=== PATIENT | female | born 1970 | race Caucasian/White ===

== ENCOUNTER → 2018-04-04 10:11 | Outpatient (CLI) | payer SELFPAY | DX: Z23 Encounter for immunization (principal) | CPT/HCPCS: 90471; 90686 ==

== ENCOUNTER → 2018-07-11 11:29 | Outpatient (CLI) | payer OTHER, SELFPAY ==
--- NOTE | 2018-07-11 11:33 | DI.RAD.S_ITS ---
PROCEDURE: XR FOOT LT 2V INDICATIONS: nail puncture wound to midfoot. TECHNIQUE: 3 views of the foot were acquired. COMPARISON: None. FINDINGS: Bones: No fractures or dislocations. No suspicious bony lesions. Soft tissues: No tibiotalar joint effusion. Achilles tendon appears normal. IMPRESSION: Normal, without fracture or foreign body. Dictated by: Benito Pittman M.D. on 07/11/2018 at 12:18 Approved by: Benito Pittman M.D. on 07/11/2018 at 12:19
== END ==
PROVIDERS: Visit Provider Physician Assistant
DX: S91.332A Puncture wound without foreign body, left foot, initial encounter (principal); W45.0XXA Nail entering through skin, initial encounter
CPT/HCPCS: 73630

== ENCOUNTER → 2018-08-28 12:43 | Outpatient (CLI) | payer OTHER, SELFPAY ==
[2018-08-28 13:39] LABS: Add Manual Diff / Slide Review NO; Basophils Absolute Auto 0 /uL (0-100); Basophils Percent Auto 0.4 % (0-2); Eosinophils Absolute Auto 200 /uL (0-450); Eosinophils Percent Auto 1.7 % (2-4); Hemoglobin 12.9 g/dL (12.0-16.0); Lymphocytes Absolute Auto 4200 /uL (1100-4500); Lymphocytes Percent Auto 45.8 % (25-40); Monocytes Absolute Auto 500 /uL (0-900); Monocytes Percent Auto 5.3 % (3-14); Neutrophils Absolute Auto 4300 /uL (1500-7000); Neutrophils Percent Auto 46.8 % (50-75); Platelet Count 269 X10^3/uL (150-400); Red Blood Cell Count 4.44 X10^6/uL (4.0-5.2); Red Cell Distribution Width 14.3 % (11.6-14.8); White Blood Cell Count 9.1 X10^3/uL (4.5-11.0)
[2018-08-28 15:01] LABS: Alanine Aminotransferase 34 IU/L (9-52); Albumin 4.4 g/dL (3.5-5.0); Albumin Globulin Ratio 1.7 (1.0-2.8); Alkaline Phosphatase 122 U/L (38-126); Aspartate Aminotransferase 25 IU/L (14-36); BUN Creatinine Ratio 27.1 (6-22); Bilirubin Total 0.1 mg/dL (0.2-1.3); Blood Urea Nitrogen 19 mg/dL (7-17); Calcium 9.7 mg/dL (8.4-10.2); Carbon Dioxide 27 mmol/L (22-32); Chloride 103 mmol/L (98-107); Estimated Glomerular Filt Rate > 60.0 mL/min (>60); Globulin 2.6 g/dL (1.7-4.1); Glucose 96 mg/dL (70-100); HEMOLYSIS < 15 (0-50); Sodium 140 mmol/L (137-145)
[2018-08-28 15:30] LABS: TSH w/ Reflex to FT4 1.35 uIU/mL (0.47-4.68)
== END ==
PROVIDERS: Visit Provider Registered Nurse
DX: N95.1 Menopausal and female climacteric states (principal); Z79.899 Other long term (current) drug therapy
CPT/HCPCS: 36415; 80053; 84443; 85025

== ENCOUNTER → 2018-10-31 08:22 | Outpatient (CLI) | payer OTHER, SELFPAY ==
--- NOTE | 2018-10-31 | DI.MG.S_ITS ---
BILATERAL DIGITAL SCREENING MAMMOGRAM 3D/2D WITH CAD: 10/31/2018 CLINICAL: Routine screening. Family history of breast cancer. Comparison is made to exam dated: 11/16/2015 mammogram - [facility]. There are scattered fibroglandular elements in both breasts. Current study was also evaluated with a Computer Aided Detection (CAD) system. No significant masses, calcifications, or other findings are seen in either breast. There has been no significant interval change. IMPRESSION: NEGATIVE There is no mammographic evidence of malignancy. A 1 year screening mammogram is recommended. This exam was interpreted at Station ID: [id number]. NOTE: For mammograms, a report in lay terms will be sent to the patient. Approximately 15% of breast malignancies will not be visualized mammographically. In the management of a palpable breast mass, a negative mammogram must not discourage biopsy of a clinically suspicious lesion. Electronically Signed By: Francisco britt/mireya:10/31/2018 09:38:27 letter sent: Normal Exam ACR BI-RADS Category 1: Negative [id number]
== END ==
PROVIDERS: Visit Provider Registered Nurse
DX: Z12.31 Encounter for screening mammogram for malignant neoplasm of breast (principal); Z80.3 Family history of malignant neoplasm of breast
CPT/HCPCS: 77063; 77067

== ENCOUNTER → 2018-12-30 09:48 | Outpatient (CLI) | payer OTHER, SELFPAY ==
[2018-12-30 11:35] LABS: Cortisol AM (Before 10AM) 4.58 ug/dL (4.46-22.7)
[2019-01-01 15:51] LABS: Adrenocorticotropic Hormone 30 pg/mL (6-50)
== END ==
PROVIDERS: PCP Student in an Organized Health Care Education/Training Program; Visit Provider Student in an Organized Health Care Education/Training Program
DX: R23.2 Flushing (principal); R55 Syncope and collapse
CPT/HCPCS: 36415; 82024; 82088; 82533; 84244

== ENCOUNTER 2019-01-07 12:17 | Emergency (ER) | payer OTHER, SELFPAY ==
[2019-01-07 12:26] VITALS: BP 112/76; PULSE 62; RESP 12; TEMP 36.9; O2SAT 100
--- NOTE | 2019-01-07 12:43 | DI.RAD.S_ITS ---
PROCEDURE: XR CHEST 2V INDICATIONS: shortness of breath TECHNIQUE: 2 views of the chest were acquired. COMPARISON: None. FINDINGS: Surgical changes and devices: None. Lungs and pleura: Lungs are clear. No pleural effusions or pneumothorax. Mediastinum: Mediastinal contours are normal. Heart size is normal. Bones and chest wall: No suspicious bony abnormalities. Soft tissues appear unremarkable. IMPRESSION: Negative chest. No acute cardiopulmonary process is evident. Dictated by: Brijesh Andino M.D. on 01/07/2019 at 13:03 Approved by: Brijesh Andino M.D. on 01/07/2019 at 13:03
[2019-01-07 13:04] VITALS: RESP 15; O2SAT 100
[2019-01-07 13:33] LABS: Add Manual Diff / Slide Review NO; Basophils Absolute Auto 100 /uL (0-100); Basophils Percent Auto 0.6 % (0-2); Eosinophils Absolute Auto 400 /uL (0-450); Eosinophils Percent Auto 4.2 % (2-4); Hematocrit 37.6 % (36-46); Hemoglobin 12.7 g/dL (12.0-16.0); Lymphocytes Absolute Auto 3400 /uL (1100-4500); Lymphocytes Percent Auto 39.3 % (25-40); Mean Corpuscular HGB Conc 33.9 % (30-36); Mean Corpuscular Hemoglobin 29.7 PG (26-34); Mean Corpuscular Volume 87.6 fL (80-100); Monocytes Absolute Auto 400 /uL (0-900); Neutrophils Absolute Auto 4400 /uL (1500-7000); Neutrophils Percent Auto 50.9 % (50-75); Platelet Count 255 X10^3/uL (150-400); Red Blood Cell Count 4.29 X10^6/uL (4.0-5.2); Red Cell Distribution Width 12.8 % (11.6-14.8); White Blood Cell Count 8.6 X10^3/uL (4.5-11.0)
[2019-01-07 13:41] LABS: INR 0.9 (0.9-1.3); Prothrombin Time 10.2 SECONDS (10.1-12.7)
[2019-01-07 13:43] LABS: PTT Partial Thromboplastin Tim 34 SECONDS (26.4-36.2)
[2019-01-07 13:45] LABS: Alanine Aminotransferase 17 IU/L (9-52); Albumin 4.3 g/dL (3.5-5.0); Albumin Globulin Ratio 1.6 (1.0-2.8); Alkaline Phosphatase 101 U/L (38-126); Aspartate Aminotransferase 22 IU/L (14-36); BUN Creatinine Ratio 18.3 (6-22); Bilirubin Total 0.3 mg/dL (0.2-1.3); Blood Urea Nitrogen 11 mg/dL (7-17); Calcium 9.6 mg/dL (8.4-10.2); Carbon Dioxide 26 mmol/L (22-32); Chloride 104 mmol/L (98-107); Creatine Kinase 51 U/L (30-135); Estimated Glomerular Filt Rate > 60.0 mL/min (>60); Globulin 2.7 g/dL (1.7-4.1); Glucose 90 mg/dL (70-100); HEMOLYSIS < 15 (0-50); Potassium 3.9 mmol/L (3.4-5.1); Sodium 140 mmol/L (137-145)
[2019-01-07 13:47] LABS: B Type Natriuretic Peptide < 100 (<100)
[2019-01-07 13:57] LABS: Troponin I < 0.012 ng/mL (0.01-0.034)
[2019-01-07 15:05] LABS: Thyroid Stimulating Hormone 0.84 uIU/mL (0.47-4.68)
[2019-01-07 15:43] VITALS: BP 116/72; PULSE 70; RESP 18; O2SAT 98
--- NOTE | 2019-01-07 17:21 | ED.SOB ---
HPI - SOB/Dyspnea <MARIA LUZ Sanford - Last Filed: 01/07/19 19:33> General Chief Complaint: Shortness of Breath/Dyspnea Stated Complaint: nausea hot flashes and chills shortness of breath Time Seen by Provider: 01/07/19 13:12 Source: patient Mode of arrival: ambulatory Limitations: no limitations History of Present Illness The patient is a 48-year-old female former smoker who presents with various complaints including hot flashes, nausea, decreased appetite, calf pain for years, and shortness of breath. She states the shortness of breath occurs when she is feeling hot flashes. She states she was nauseous last night, but is no longer. She states that the lower leg pain began several years ago in 2014 and has since had PT and ultrasounds done. She states with the episodic flushing, she experiences shortness of breath and then severe fatigue. She states she feels cold after her episodes of hot flashes. She states that she was at a campfire the other day and had difficulty regulating her temperature. She understands that these episodes of hot flashes were and shortness of breath, after stressful periods in her life such as her boyfriend's relapse. She states that this time there is no stressful.. She denies any chest pain. She denies any fever. She denies any abdominal pain. She states that she has seen Dr. 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 Chart review illustrate that the patient has a history of bipolar and is currently unmedicated. Related Data Previous Rx's Medication Instructions Recorded promethazine 25 mg tablet 25 mg PO QID PRN #30 tab 12/26/18 gabapentin 100 mg capsule 100 mg PO TID #90 cap 12/29/18 Allergies Allergy/AdvReac Type Severity Reaction Status Date / Time clindamycin Allergy Severe fever Verified 01/07/19 12:30 amoxicillin Allergy Verified 01/07/19 12:30 Review of Systems <MARIA LUZ Sanford - Last Filed: 01/07/19 19:33> Review of Systems GENERAL: Denies chills, fatigue, malaise, fever, sweats. HEENT: Denies sinus pain, ear pain, sore throat, difficulty swallowing, dizziness. RESPIRATORY: See HPI CARDIOVASCULAR: Denies chest pain, palpitations, orthopnea, edema, GASTROINTESTINAL: see HPI : Denies dysuria, frequency, incontinence, hematuria, urinary retention. MUSCULOSKELETAL: denies weakness, joint pain, or bony pain SKIN: Denies rash, skin lesions, or other NEUROLOGIC: Denies weakness, headache, numbness, change in speech, confusion, seizures, incoordination. PSYCHIATRIC see HPI 12 point review of systems is negative except for those stated above PFSH <MARIA LUZ Sanford - Last Filed: 01/07/19 19:33> Medical History (Updated 01/07/19 @ 19:30 by MARIA LUZ Sanford) History of bipolar disorder (Acute) Social History Smoking Status: Former smoker Social History Smoking Status: Former smoker Exam <MARIA LUZ Sanford - Last Filed: 01/07/19 19:33> Narrative Exam Narrative: GENERAL: Please female no acute distress HEAD: Atraumatic. Normocephalic. No temporal or scalp tenderness. EYES: Pupils equal round and reactive. Extraocular motions intact. No scleral icterus. No injection or drainage. ENT: Nose without bleeding, purulent drainage or septal hematoma. Throat without erythema, tonsillar hypertrophy or exudate. Uvula midline. Airway patent. NECK: Trachea midline. No JVD or lymphadenopathy. Supple, nontender, no meningeal signs. CARDIOVASCULAR: Regular rate and rhythm RESPIRATORY: Clear to auscultation. Breath sounds equal bilaterally. No wheezes, rales, or rhonchi. No cough. No increased respiratory effort. No accessory muscle use. No stridor. GASTROINTESTINAL: Abdomen soft, non-tender, nondistended. No hepato-splenomegaly, or palpable masses. No guarding. Active bowel sounds all 4 quadrants. EXTREMITIES: No clubbing, cyanosis, or edema. No joint tenderness, effusion, or edema noted. BACK: Nontender without deformity or crepitance. No flank tenderness. NEURO: AOx3. SKIN: No rash or erythema. Initial Vital Signs Initial Vital Signs: Vital Signs Temperature 98.4 F 01/07/19 12:26 Pulse Rate 62 01/07/19 12:26 Respiratory Rate 12 01/07/19 12:26 Blood Pressure 112/76 01/07/19 12:26 Pulse Oximetry 100 01/07/19 12:26 <Allison Olguin DO - Last Filed: 01/08/19 19:48> Initial Vital Signs Initial Vital Signs: Vital Signs Temperature 98.4 F 01/07/19 12:26 Pulse Rate 62 01/07/19 12:26 Respiratory Rate 12 01/07/19 12:26 Blood Pressure 112/76 01/07/19 12:26 Pulse Oximetry 100 01/07/19 12:26 Course <MARIA LUZ Sanford - Last Filed: 01/07/19 19:33> Orders Ordered: ED Orders 01/07/19 12:43 XR chest 2V Stat 01/07/19 13:00 EKG-12 Lead Stat 01/07/19 13:23 B Type Natriuretic Peptide Stat Complete Blood Count AUTO DIFF Stat Comprehensive Metabolic Panel Stat Partial Thromboplastin Time Stat Prothrombin Time INR Stat Thyroid Stimulating Hormone Stat Troponin & CK Cardiac Panel Stat Vital Signs - 8 hr 01/07/19 12:26 01/07/19 13:04 01/07/19 15:43 Temperature 98.4 F Pulse Rate 62 70 Respiratory Rate 12 15 18 Blood Pressure 112/76 Blood Pressure [Left Arm] 116/72 Pulse Oximetry 100 100 98 <Allison Olguin DO - Last Filed: 01/08/19 19:48> Orders Ordered: ED Orders 01/07/19 12:43 XR chest 2V Stat 01/07/19 13:00 EKG-12 Lead Stat 01/07/19 13:23 B Type Natriuretic Peptide Stat Complete Blood Count AUTO DIFF Stat Comprehensive Metabolic Panel Stat Partial Thromboplastin Time Stat Prothrombin Time INR Stat Thyroid Stimulating Hormone Stat Troponin & CK Cardiac Panel Stat Vital Signs - 8 hr 01/07/19 12:26 01/07/19 13:04 01/07/19 15:43 Temperature 98.4 F Pulse Rate 62 70 Respiratory Rate 12 15 18 Blood Pressure 112/76 Blood Pressure [Left Arm] 116/72 Pulse Oximetry 100 100 98 MDM - SOB/Dyspnea <MARIA LUZ Sanford - Last Filed: 01/07/19 19:33> Lab Data Result diagrams: 01/07/19 13:23 07/23/19 13:23 Lab Results 01/07/19 01/07/19 01/07/19 Range/Units 13:23 13:23 13:23 WBC 8.6 (4.5-11.0) X10^3/uL RBC 4.29 (4.0-5.2) X10^6/uL Hgb 12.7 (12.0-16.0) g/dL Hct 37.6 (36-46) % MCV 87.6 (80-100) fL MCH 29.7 (26-34) PG MCHC 33.9 (30-36) % RDW 12.8 (11.6-14.8) % Plt Count 255 (150-400) X10^3/uL Neut % (Auto) 50.9 (50-75) % Lymph % (Auto) 39.3 (25-40) % Henry % (Auto) 5.0 (3-14) % Eos % (Auto) 4.2 H (2-4) % Baso % (Auto) 0.6 (0-2) % Neut # (Auto) 4400 (0680-5552) /uL Lymph # (Auto) 3400 (4526-8657) /uL Henry # (Auto) 400 (0-900) /uL Eos # (Auto) 400 (0-450) /uL Baso # (Auto) 100 (0-100) /uL PT 10.2 (10.1-12.7) SECONDS INR 0.9 (0.9-1.3) APTT 34 (26.4-36.2) SECONDS Sodium 140 (137-145) mmol/L Potassium 3.9 (3.4-5.1) mmol/L Chloride 104 (98-107) mmol/L Carbon Dioxide 26 (22-32) mmol/L BUN 11 (7-17) mg/dL Creatinine 0.60 (0.52-1.04) mg/dL Estimated GFR > 60.0 (>60) mL/min BUN/Creatinine Ratio 18.3 (6-22) Glucose 90 (70-100) mg/dL Calcium 9.6 (8.4-10.2) mg/dL Total Bilirubin 0.3 (0.2-1.3) mg/dL AST 22 (14-36) IU/L ALT 17 (9-52) IU/L Alkaline Phosphatase 101 (38-126) U/L Total Creatine Kinase 51 (30-135) U/L CK-MB (CK-2) TNP CK-MB (CK-2) Rel Index TNP Troponin I < 0.012 (0.01-0.034) ng/mL B-Natriuretic Peptide (<100) Total Protein 7.0 (6.3-8.2) g/dL Albumin 4.3 (3.5-5.0) g/dL Globulin 2.7 (1.7-4.1) g/dL Albumin/Globulin Ratio 1.6 (1.0-2.8) TSH (0.47-4.68) uIU/mL 01/07/19 01/07/19 Range/Units 13:23 13:23 WBC (4.5-11.0) X10^3/uL RBC (4.0-5.2) X10^6/uL Hgb (12.0-16.0) g/dL Hct (36-46) % MCV (80-100) fL MCH (26-34) PG MCHC (30-36) % RDW (11.6-14.8) % Plt Count (150-400) X10^3/uL Neut % (Auto) (50-75) % Lymph % (Auto) (25-40) % Henry % (Auto) (3-14) % Eos % (Auto) (2-4) % Baso % (Auto) (0-2) % Neut # (Auto) (2522-2921) /uL Lymph # (Auto) (4563-2415) /uL Henry # (Auto) (0-900) /uL Eos # (Auto) (0-450) /uL Baso # (Auto) (0-100) /uL PT (10.1-12.7) SECONDS INR (0.9-1.3) APTT (26.4-36.2) SECONDS Sodium (137-145) mmol/L Potassium (3.4-5.1) mmol/L Chloride (98-107) mmol/L Carbon Dioxide (22-32) mmol/L BUN (7-17) mg/dL Creatinine (0.52-1.04) mg/dL Estimated GFR (>60) mL/min BUN/Creatinine Ratio (6-22) Glucose (70-100) mg/dL Calcium (8.4-10.2) mg/dL Total Bilirubin (0.2-1.3) mg/dL AST (14-36) IU/L ALT (9-52) IU/L Alkaline Phosphatase (38-126) U/L Total Creatine Kinase (30-135) U/L CK-MB (CK-2) CK-MB (CK-2) Rel Index Troponin I (0.01-0.034) ng/mL B-Natriuretic Peptide < 100 (<100) Total Protein (6.3-8.2) g/dL Albumin (3.5-5.0) g/dL Globulin (1.7-4.1) g/dL Albumin/Globulin Ratio (1.0-2.8) TSH 0.84 (0.47-4.68) uIU/mL Imaging Data Chest x-ray: Radiologist's impression: [address] [address] XRay Report Signed Patient: Sandra Maurer R#: [id number] : 1970Acct:[id number] Age/Sex: 48 / FDate of Service: 01/07/19 Loc: ED Accession Number: [id number] Procedure: XR chest 2V Ordering Provider: Allison Olguin D.O. PROCEDURE: XR CHEST 2V INDICATIONS: shortness of breath TECHNIQUE: 2 views of the chest were acquired. COMPARISON: None. FINDINGS: Surgical changes and devices: None. Lungs and pleura: Lungs are clear. No pleural effusions or pneumothorax. Mediastinum: Mediastinal contours are normal. Heart size is normal. Bones and chest wall: No suspicious bony abnormalities. Soft tissues appear unremarkable. IMPRESSION: Negative chest. No acute cardiopulmonary process is evident. Dictated by: Brijesh Andino M.D. on 01/07/2019 at 13:03 Approved by: Brijesh Andino M.D. on 01/07/2019 at 13:03 ECG Data Attestation: I personally reviewed and interpreted this ECG as follows: Interpretation: Sinus bradycardia Ventricular rate 57. No ST elevation or depression. No ectopy noted. Viewed by Dr. Olguin at 13:12 [facility] Narrative Medical decision making narrative: The patient is a 48-year-old female with complicated medical history who presents for chief complaint of various symptoms including hot flashes, shortness of breath etc. She has seen her primary care provider for this fairly recently. She received a EKG, chest x-ray and cardiac labs, which all came back normal. I did check her TSH, which was in the normal range. She was comfortable throughout her stay in the ER, even falling asleep in a results launch. I discussed at length that she is to follow up with primary care provider. Discussed coming back to the ER for any acute concerns such as chest pain or shortness of breath. Patient was hemodynamically stable throughout her stay in the ER. I offered her pain and nausea medication, which she declined. I feel as though she needs further workup, especially given her weight loss, however I feel as though the previous discussions with her PCP regarding an MRI and referrals are a good start. Patient states understanding of follow-up and return precautions. <Allison Olguin, DO - Last Filed: 01/08/19 19:48> Lab Data Lab Results 01/07/19 01/07/19 01/07/19 Range/Units 13:23 13:23 13:23 WBC 8.6 (4.5-11.0) X10^3/uL RBC 4.29 (4.0-5.2) X10^6/uL Hgb 12.7 (12.0-16.0) g/dL Hct 37.6 (36-46) % MCV 87.6 (80-100) fL MCH 29.7 (26-34) PG MCHC 33.9 (30-36) % RDW 12.8 (11.6-14.8) % Plt Count 255 (150-400) X10^3/uL Neut % (Auto) 50.9 (50-75) % Lymph % (Auto) 39.3 (25-40) % Henry % (Auto) 5.0 (3-14) % Eos % (Auto) 4.2 H (2-4) % Baso % (Auto) 0.6 (0-2) % Neut # (Auto) 4400 (4169-3720) /uL Lymph # (Auto) 3400 (6081-8759) /uL Henry # (Auto) 400 (0-900) /uL Eos # (Auto) 400 (0-450) /uL Baso # (Auto) 100 (0-100) /uL PT 10.2 (10.1-12.7) SECONDS INR 0.9 (0.9-1.3) APTT 34 (26.4-36.2) SECONDS Sodium 140 (137-145) mmol/L Potassium 3.9 (3.4-5.1) mmol/L Chloride 104 (98-107) mmol/L Carbon Dioxide 26 (22-32) mmol/L BUN 11 (7-17) mg/dL Creatinine 0.60 (0.52-1.04) mg/dL Estimated GFR > 60.0 (>60) mL/min BUN/Creatinine Ratio 18.3 (6-22) Glucose 90 (70-100) mg/dL Calcium 9.6 (8.4-10.2) mg/dL Total Bilirubin 0.3 (0.2-1.3) mg/dL AST 22 (14-36) IU/L ALT 17 (9-52) IU/L Alkaline Phosphatase 101 (38-126) U/L Total Creatine Kinase 51 (30-135) U/L CK-MB (CK-2) TNP CK-MB (CK-2) Rel Index TNP Troponin I < 0.012 (0.01-0.034) ng/mL B-Natriuretic Peptide (<100) Total Protein 7.0 (6.3-8.2) g/dL Albumin 4.3 (3.5-5.0) g/dL Globulin 2.7 (1.7-4.1) g/dL Albumin/Globulin Ratio 1.6 (1.0-2.8) TSH (0.47-4.68) uIU/mL 01/07/19 01/07/19 Range/Units 13:23 13:23 WBC (4.5-11.0) X10^3/uL RBC (4.0-5.2) X10^6/uL Hgb (12.0-16.0) g/dL Hct (36-46) % MCV (80-100) fL MCH (26-34) PG MCHC (30-36) % RDW (11.6-14.8) % Plt Count (150-400) X10^3/uL Neut % (Auto) (50-75) % Lymph % (Auto) (25-40) % Henry % (Auto) (3-14) % Eos % (Auto) (2-4) % Baso % (Auto) (0-2) % Neut # (Auto) (2166-6826) /uL Lymph # (Auto) (5695-5311) /uL Henry # (Auto) (0-900) /uL Eos # (Auto) (0-450) /uL Baso # (Auto) (0-100) /uL PT (10.1-12.7) SECONDS INR (0.9-1.3) APTT (26.4-36.2) SECONDS Sodium (137-145) mmol/L Potassium (3.4-5.1) mmol/L Chloride (98-107) mmol/L Carbon Dioxide (22-32) mmol/L BUN (7-17) mg/dL Creatinine (0.52-1.04) mg/dL Estimated GFR (>60) mL/min BUN/Creatinine Ratio (6-22) Glucose (70-100) mg/dL Calcium (8.4-10.2) mg/dL Total Bilirubin (0.2-1.3) mg/dL AST (14-36) IU/L ALT (9-52) IU/L Alkaline Phosphatase (38-126) U/L Total Creatine Kinase (30-135) U/L CK-MB (CK-2) CK-MB (CK-2) Rel Index Troponin I (0.01-0.034) ng/mL B-Natriuretic Peptide < 100 (<100) Total Protein (6.3-8.2) g/dL Albumin (3.5-5.0) g/dL Globulin (1.7-4.1) g/dL Albumin/Globulin Ratio (1.0-2.8) TSH 0.84 (0.47-4.68) uIU/mL Discharge Plan Departure Patient Disposition: Home Clinical Impression: Vasomotor flushing, Nausea Discharge Date/Time: 01/07/19 15:45 Interventions: ED Discharge Assessment Last Done: 01/07/19 15:44 Instructions: Nausea (Alternative Therapy), DI for Nausea -- Adult Activity Restrictions/Additional Instructions: Please follow up with primary care provider. Please come back to the emergency department for any acute concerns such as chest pain shortness of breath. Today we checked her lungs, and you had no pneumonia. We checked cardiac levels, electrolytes, your thyroid, as well as your kidney and liver function. Overall your lab work came back normal. Please follow up with her primary care provider, especially given his suggestions of OBGYN and/or further imaging Prescriptions: No Action promethazine 25 mg tablet 25 mg PO QID PRN (Reason: nausea and vomiting) Qty: 30 RF: 0 gabapentin 100 mg capsule 100 mg PO TID Qty: 90 RF: 0 Referrals: Augie Geronimo MD [Primary Care Provider] - <Allison Olguin DO - Last Filed: 01/08/19 19:48> Cosign ED Attending Cosignature Attestation: I was immediately available in the department for consultation. This documentation has been reviewed and I agree with assessment and plan. Supervised by Allison Olguin DO
--- NOTE | 2019-01-07 17:26 | ED_ITS ---
HPI - SOB/Dyspnea <MARIA LUZ Sanford - Last Filed: 01/07/19 19:33> General Chief Complaint: Shortness of Breath/Dyspnea Stated Complaint: nausea hot flashes and chills shortness of breath Time Seen by Provider: 01/07/19 13:12 Source: patient Mode of arrival: ambulatory Limitations: no limitations History of Present Illness The patient is a 48-year-old female former smoker who presents with various complaints including hot flashes, nausea, decreased appetite, calf pain for years, and shortness of breath. She states the shortness of breath occurs when she is feeling hot flashes. She states she was nauseous last night, but is no longer. She states that the lower leg pain began several years ago in 2014 and has since had PT and ultrasounds done. She states with the episodic flushing, she experiences shortness of breath and then severe fatigue. She states she feels cold after her episodes of hot flashes. She states that she was at a campfire the other day and had difficulty regulating her temperature. She understands that these episodes of hot flashes were and shortness of breath, after stressful periods in her life such as her boyfriend's relapse. She states that this time there is no stressful.. She denies any chest pain. She denies any fever. She denies any abdominal pain. She states that she has seen Dr. 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 Chart review illustrate that the patient has a history of bipolar and is currently unmedicated. Related Data Previous Rx's Medication Instructions Recorded promethazine 25 mg tablet 25 mg PO QID PRN #30 tab 12/26/18 gabapentin 100 mg capsule 100 mg PO TID #90 cap 12/29/18 Allergies Allergy/AdvReac Type Severity Reaction Status Date / Time clindamycin Allergy Severe fever Verified 01/07/19 12:30 amoxicillin Allergy Verified 01/07/19 12:30 Review of Systems <MARIA LUZ Sanford - Last Filed: 01/07/19 19:33> Review of Systems GENERAL: Denies chills, fatigue, malaise, fever, sweats. HEENT: Denies sinus pain, ear pain, sore throat, difficulty swallowing, dizziness. RESPIRATORY: See HPI CARDIOVASCULAR: Denies chest pain, palpitations, orthopnea, edema, GASTROINTESTINAL: see HPI : Denies dysuria, frequency, incontinence, hematuria, urinary retention. MUSCULOSKELETAL: denies weakness, joint pain, or bony pain SKIN: Denies rash, skin lesions, or other NEUROLOGIC: Denies weakness, headache, numbness, change in speech, confusion, seizures, incoordination. PSYCHIATRIC see HPI 12 point review of systems is negative except for those stated above PFSH <MARIA LUZ Sanford - Last Filed: 01/07/19 19:33> Medical History (Updated 01/07/19 @ 19:30 by MARIA LUZ Sanford) History of bipolar disorder (Acute) Social History Smoking Status: Former smoker Social History Smoking Status: Former smoker Exam <MARIA LUZ Sanford - Last Filed: 01/07/19 19:33> Narrative Exam Narrative: GENERAL: Please female no acute distress HEAD: Atraumatic. Normocephalic. No temporal or scalp tenderness. EYES: Pupils equal round and reactive. Extraocular motions intact. No scleral icterus. No injection or drainage. ENT: Nose without bleeding, purulent drainage or septal hematoma. Throat without erythema, tonsillar hypertrophy or exudate. Uvula midline. Airway patent. NECK: Trachea midline. No JVD or lymphadenopathy. Supple, nontender, no meningeal signs. CARDIOVASCULAR: Regular rate and rhythm RESPIRATORY: Clear to auscultation. Breath sounds equal bilaterally. No wheezes, rales, or rhonchi. No cough. No increased respiratory effort. No accessory muscle use. No stridor. GASTROINTESTINAL: Abdomen soft, non-tender, nondistended. No hepato- splenomegaly, or palpable masses. No guarding. Active bowel sounds all 4 quadra nts. EXTREMITIES: No clubbing, cyanosis, or edema. No joint tenderness, effusion, or edema noted. BACK: Nontender without deformity or crepitance. No flank tenderness. NEURO: AOx3. SKIN: No rash or erythema. Initial Vital Signs Initial Vital Signs: Vital Signs Temperature 98.4 F 01/07/19 12:26 Pulse Rate 62 01/07/19 12:26 Respiratory Rate 12 07/23/19 12:26 Blood Pressure 112/76 01/07/19 12:26 Pulse Oximetry 100 01/07/19 12:26 <Allison Olguin DO - Last Filed: 01/08/19 19:48> Initial Vital Signs Initial Vital Signs: Vital Signs Temperature 98.4 F 01/07/19 12:26 Pulse Rate 62 01/07/19 12:26 Respiratory Rate 12 01/07/19 12:26 Blood Pressure 112/76 01/07/19 12:26 Pulse Oximetry 100 01/07/19 12:26 Course <MARIA LUZ Sanford - Last Filed: 01/07/19 19:33> Orders Ordered: ED Orders 01/07/19 12:43 XR chest 2V Stat 01/07/19 13:00 EKG-12 Lead Stat 01/07/19 13:23 B Type Natriuretic Peptide Stat Complete Blood Count AUTO DIFF Stat Comprehensive Metabolic Panel Stat Partial Thromboplastin Time Stat Prothrombin Time INR Stat Thyroid Stimulating Hormone Stat Troponin & CK Cardiac Panel Stat Vital Signs - 8 hr 01/07/19 12:26 01/07/19 13:04 01/07/19 15:43 Temperature 98.4 F Pulse Rate 62 70 Respiratory Rate 12 15 18 Blood Pressure 112/76 Blood Pressure [Left Arm] 116/72 Pulse Oximetry 100 100 98 <Allison Olguin DO - Last Filed: 01/08/19 19:48> Orders Ordered: ED Orders 01/07/19 12:43 XR chest 2V Stat 01/07/19 13:00 EKG-12 Lead Stat 01/07/19 13:23 B Type Natriuretic Peptide Stat Complete Blood Count AUTO DIFF Stat Comprehensive Metabolic Panel Stat Partial Thromboplastin Time Stat Prothrombin Time INR Stat Thyroid Stimulating Hormone Stat Troponin & CK Cardiac Panel Stat Vital Signs - 8 hr 01/07/19 12:26 01/07/19 13:04 01/07/19 15:43 Temperature 98.4 F Pulse Rate 62 70 Respiratory Rate 12 15 18 Blood Pressure 112/76 Blood Pressure [Left Arm] 116/72 Pulse Oximetry 100 100 98 MDM - SOB/Dyspnea <MARIA LUZ Sanford - Last Filed: 01/07/19 19:33> Lab Data Result diagrams: 01/07/19 13:23 01/07/19 13:23 Lab Results 01/07/19 01/07/19 01/07/19 Range/Units 13:23 13:23 13:23 WBC 8.6 (4.5-11.0) X10^3/uL RBC 4.29 (4.0-5.2) X10^6/uL Hgb 12.7 (12.0-16.0) g/dL Hct 37.6 (36-46) % MCV 87.6 (80-100) fL MCH 29.7 (26-34) PG MCHC 33.9 (30-36) % RDW 12.8 (11.6-14.8) % Plt Count 255 (150-400) X10^3/uL Neut % (Auto) 50.9 (50-75) % Lymph % (Auto) 39.3 (25-40) % [place] % (Auto) 5.0 (3-14) % Eos % (Auto) 4.2 H (2-4) % Baso % (Auto) 0.6 (0-2) % Neut # (Auto) 4400 (0728-6979) /uL Lymph # (Auto) 3400 (3332-2595) /uL [place] # (Auto) 400 (0-900) /uL Eos # (Auto) 400 (0-450) /uL Baso # (Auto) 100 (0-100) /uL PT 10.2 (10.1-12.7) SECONDS INR 0.9 (0.9-1.3) APTT 34 (26.4-36.2) SECONDS Sodium 140 (137-145) mmol/L Potassium 3.9 (3.4-5.1) mmol/L Chloride 104 (98-107) mmol/L Carbon Dioxide 26 (22-32) mmol/L BUN 11 (7-17) mg/dL Creatinine 0.60 (0.52-1.04) mg/dL Estimated GFR > 60.0 (>60) mL/min BUN/Creatinine Ratio 18.3 (6-22) Glucose 90 (70-100) mg/dL Calcium 9.6 (8.4-10.2) mg/dL Total Bilirubin 0.3 (0.2-1.3) mg/dL AST 22 (14-36) IU/L ALT 17 (9-52) IU/L Alkaline Phosphatase 101 (38-126) U/L Total Creatine Kinase 51 (30-135) U/L CK-MB (CK-2) TNP CK-MB (CK-2) Rel Index TNP Troponin I < 0.012 (0.01-0.034) ng/mL B-Natriuretic Peptide (<100) Total Protein 7.0 (6.3-8.2) g/dL Albumin 4.3 (3.5-5.0) g/dL Globulin 2.7 (1.7-4.1) g/dL Albumin/Globulin Ratio 1.6 (1.0-2.8) TSH (0.47-4.68) uIU/mL 01/07/19 01/07/19 Range/Units 13:23 13:23 WBC (4.5-11.0) X10^3/uL RBC (4.0-5.2) X10^6/uL Hgb (12.0-16.0) g/dL Hct (36-46) % MCV (80-100) fL MCH (26-34) PG MCHC (30-36) % RDW (11.6-14.8) % Plt Count (150-400) X10^3/uL Neut % (Auto) (50-75) % Lymph % (Auto) (25-40) % [place] % (Auto) (3-14) % Eos % (Auto) (2-4) % Baso % (Auto) (0-2) % Neut # (Auto) (9918-2557) /uL Lymph # (Auto) (4829-5972) /uL [place] # (Auto) (0-900) /uL Eos # (Auto) (0-450) /uL Baso # (Auto) (0-100) /uL PT (10.1-12.7) SECONDS INR (0.9-1.3) APTT (26.4-36.2) SECONDS Sodium (137-145) mmol/L Potassium (3.4-5.1) mmol/L Chloride (98-107) mmol/L Carbon Dioxide (22-32) mmol/L BUN (7-17) mg/dL Creatinine (0.52-1.04) mg/dL Estimated GFR (>60) mL/min BUN/Creatinine Ratio (6-22) Glucose (70-100) mg/dL Calcium (8.4-10.2) mg/dL Total Bilirubin (0.2-1.3) mg/dL AST (14-36) IU/L ALT (9-52) IU/L Alkaline Phosphatase (38-126) U/L Total Creatine Kinase (30-135) U/L CK-MB (CK-2) CK-MB (CK-2) Rel Index Troponin I (0.01-0.034) ng/mL B-Natriuretic Peptide < 100 (<100) Total Protein (6.3-8.2) g/dL Albumin (3.5-5.0) g/dL Globulin (1.7-4.1) g/dL Albumin/Globulin Ratio (1.0-2.8) TSH 0.84 (0.47-4.68) uIU/mL Imaging Data Chest x-ray: Radiologist's impression: [address] [address] XRay Report Signed Patient: Sandra Maurer R#: [id number] : 1970Acct:[id number] Age/Sex: 48 / FDate of Service: 01/07/19 Loc: ED Accession Number: [id number] Procedure: XR chest 2V Ordering Provider: Allison Olguin D.O. PROCEDURE: XR CHEST 2V INDICATIONS: shortness of breath TECHNIQUE: 2 views of the chest were acquired. COMPARISON: None. FINDINGS: Surgical changes and devices: None. Lungs and pleura: Lungs are clear. No pleural effusions or pneumothorax. Mediastinum: Mediastinal contours are normal. Heart size is normal. Bones and chest wall: No suspicious bony abnormalities. Soft tissues appear unremarkable. IMPRESSION: Negative chest. No acute cardiopulmonary process is evident. Dictated by: Brijesh Andino M.D. on 01/07/2019 at 13:03 Approved by: Brijesh Andino M.D. on 01/07/2019 at 13:03 ECG Data Attestation: I personally reviewed and interpreted this ECG as follows: Interpretation: Sinus bradycardia Ventricular rate 57. No ST elevation or depression. No ectopy noted. Viewed by Dr. Olguin at 13:12 MDM Narrative Medical decision making narrative: The patient is a 48-year-old female with complicated medical history who presents for chief complaint of various symptoms including hot flashes, shortness of breath etc. She has seen her primary care provider for this fairly recently. She received a EKG, chest x-ray and cardiac labs, which all came back normal. I did check her TSH, which was in the normal range. She was comfortable throughout her stay in the ER, even falling asleep in a results launch. I discussed at length that she is to follow up with primary care provider. Discussed coming back to the ER for any acute concerns such as chest pain or shortness of breath. Patient was hemodynamically stable throughout her stay in the ER. I offered her pain and nausea medication, which she declined. I feel as though she needs further workup, especially given her weight loss, however I feel as though the previous discussions with her PCP regarding an MRI and referrals are a good start. Patient states understanding of follow-up and return precautions. <Allison Olguin, DO - Last Filed: 01/08/19 19:48> Lab Data Lab Results 01/07/19 01/07/19 01/07/19 Range/Units 13:23 13:23 13:23 WBC 8.6 (4.5-11.0) X10^3/uL RBC 4.29 (4.0-5.2) X10^6/uL Hgb 12.7 (12.0-16.0) g/dL Hct 37.6 (36-46) % MCV 87.6 (80-100) fL MCH 29.7 (26-34) PG MCHC 33.9 (30-36) % RDW 12.8 (11.6-14.8) % Plt Count 255 (150-400) X10^3/uL Neut % (Auto) 50.9 (50-75) % Lymph % (Auto) 39.3 (25-40) % [place] % (Auto) 5.0 (3-14) % Eos % (Auto) 4.2 H (2-4) % Baso % (Auto) 0.6 (0-2) % Neut # (Auto) 4400 (9639-9593) /uL Lymph # (Auto) 3400 (3088-2297) /uL [place] # (Auto) 400 (0-900) /uL Eos # (Auto) 400 (0-450) /uL Baso # (Auto) 100 (0-100) /uL PT 10.2 (10.1-12.7) SECONDS INR 0.9 (0.9-1.3) APTT 34 (26.4-36.2) SECONDS Sodium 140 (137-145) mmol/L Potassium 3.9 (3.4-5.1) mmol/L Chloride 104 (98-107) mmol/L Carbon Dioxide 26 (22-32) mmol/L BUN 11 (7-17) mg/dL Creatinine 0.60 (0.52-1.04) mg/dL Estimated GFR > 60.0 (>60) mL/min BUN/Creatinine Ratio 18.3 (6-22) Glucose 90 (70-100) mg/dL Calcium 9.6 (8.4-10.2) mg/dL Total Bilirubin 0.3 (0.2-1.3) mg/dL AST 22 (14-36) IU/L ALT 17 (9-52) IU/L Alkaline Phosphatase 101 (38-126) U/L Total Creatine Kinase 51 (30-135) U/L CK-MB (CK-2) TNP CK-MB (CK-2) Rel Index TNP Troponin I < 0.012 (0.01-0.034) ng/mL B-Natriuretic Peptide (<100) Total Protein 7.0 (6.3-8.2) g/dL Albumin 4.3 (3.5-5.0) g/dL Globulin 2.7 (1.7-4.1) g/dL Albumin/Globulin Ratio 1.6 (1.0-2.8) TSH (0.47-4.68) uIU/mL 01/07/19 01/07/19 Range/Units 13:23 13:23 WBC (4.5-11.0) X10^3/uL RBC (4.0-5.2) X10^6/uL Hgb (12.0-16.0) g/dL Hct (36-46) % MCV (80-100) fL MCH (26-34) PG MCHC (30-36) % RDW (11.6-14.8) % Plt Count (150-400) X10^3/uL Neut % (Auto) (50-75) % Lymph % (Auto) (25-40) % [place] % (Auto) (3-14) % Eos % (Auto) (2-4) % Baso % (Auto) (0-2) % Neut # (Auto) (7587-6064) /uL Lymph # (Auto) (7543-9505) /uL [place] # (Auto) (0-900) /uL Eos # (Auto) (0-450) /uL Baso # (Auto) (0-100) /uL PT (10.1-12.7) SECONDS INR (0.9-1.3) APTT (26.4-36.2) SECONDS Sodium (137-145) mmol/L Potassium (3.4-5.1) mmol/L Chloride (98-107) mmol/L Carbon Dioxide (22-32) mmol/L BUN (7-17) mg/dL Creatinine (0.52-1.04) mg/dL Estimated GFR (>60) mL/min BUN/Creatinine Ratio (6-22) Glucose (70-100) mg/dL Calcium (8.4-10.2) mg/dL Total Bilirubin (0.2-1.3) mg/dL AST (14-36) IU/L ALT (9-52) IU/L Alkaline Phosphatase (38-126) U/L Total Creatine Kinase (30-135) U/L CK-MB (CK-2) CK-MB (CK-2) Rel Index Troponin I (0.01-0.034) ng/mL B-Natriuretic Peptide < 100 (<100) Total Protein (6.3-8.2) g/dL Albumin (3.5-5.0) g/dL Globulin (1.7-4.1) g/dL Albumin/Globulin Ratio (1.0-2.8) TSH 0.84 (0.47-4.68) uIU/mL Discharge Plan Departure Patient Disposition: Home Clinical Impression: Vasomotor flushing, Nausea Discharge Date/Time: 01/07/19 15:45 Interventions: ED Discharge Assessment Last Done: 01/07/19 15:44 Instructions: Nausea (Alternative Therapy), DI for Nausea -- Adult Activity Restrictions/Additional Instructions: Please follow up with primary care provider. Please come back to the emergency department for any acute concerns such as chest pain shortness of breath. Today we checked her lungs, and you had no pneumonia. We checked cardiac levels, electrolytes, your thyroid, as well as your kidney and liver function. Overall your lab work came back normal. Please follow up with her primary care provider, especially given his suggestions of OBGYN and/or further imaging Prescriptions: No Action promethazine 25 mg tablet 25 mg PO QID PRN (Reason: nausea and vomiting) Qty: 30 RF: 0 gabapentin 100 mg capsule 100 mg PO TID Qty: 90 RF: 0 Referrals: Augie Geronimo MD [Primary Care Provider] - <Allison Olguin DO - Last Filed: 01/08/19 19:48> Cosign ED Attending Cosignature Attestation: I was immediately available in the department for consultation. This documentation has been reviewed and I agree with assessment and plan. Supervised by Allison Olguin DO
== END 2019-01-07 15:45 | disposition home or self-care (01) ==
PROVIDERS: Emergency Provider Nurse Practitioner Family; PCP Student in an Organized Health Care Education/Training Program
DX: R23.2 Flushing (principal); R11.0 Nausea; R00.1 Bradycardia, unspecified; R06.02 Shortness of breath
CPT/HCPCS: 36415; 71046; 80053; 82550; 83880; 84443; 84484; 85025; 85610; 85730; 93005; 99282; 99285

== ENCOUNTER → 2019-01-08 08:30 | Oncology outpatient (ONC) | payer OTHER, SELFPAY ==
[2019-01-08 08:56] VITALS: BP 115/71; PULSE 66; RESP 14; TEMP 36.6; O2SAT 99
[2019-01-08] MEDS: COSYNTROPIN 0.25 MG VIAL IV (09:23)
[2019-01-08 11:34] LABS: Cortisol 60 MIN Post Stim. 22.6 ug/dL
[2019-01-08 11:34] LABS: Cortisol 30 MIN Post Stim. 17.4 ug/dL
[2019-01-08 11:37] LABS: Cortisol Basline for Stim. 1.96 ug/dL
== END ==
LOC: ONC 08:33
PROVIDERS: PCP Student in an Organized Health Care Education/Training Program; Visit Provider Student in an Organized Health Care Education/Training Program
DX: E27.40 Unspecified adrenocortical insufficiency (principal)
CPT/HCPCS: 36415; 96374; J0834

== ENCOUNTER → 2019-01-13 07:16 | Outpatient (CLI) | payer OTHER, SELFPAY ==
[2019-01-17 19:51] LABS: Creatinine, 24 Urine 1.26 g/24 h (0.50-2.15); Total Catecholamines 79 mcg/24 h (26-121); Total Volume: 1950 mL
[2019-01-21 13:40] LABS: Total Volume 2950 mL; Urine, Metanephrine 253 mcg/24 h (58-203); Urine, Normetanephrine 673 mcg/24 h (88-649)
== END ==
PROVIDERS: PCP Student in an Organized Health Care Education/Training Program; Visit Provider Student in an Organized Health Care Education/Training Program
DX: R23.2 Flushing (principal); R55 Syncope and collapse
CPT/HCPCS: 82384; 83835

== ENCOUNTER → 2019-02-12 09:05 | Outpatient (CLI) | payer OTHER, SELFPAY ==
[2019-02-12 11:19] LABS: Estradiol, Total 148.6 pg/mL
== END ==
PROVIDERS: PCP Student in an Organized Health Care Education/Training Program
DX: Z78.0 Asymptomatic menopausal state (principal)
CPT/HCPCS: 36415; 82670; 83001

== ENCOUNTER → 2019-02-24 07:16 | Outpatient (CLI) | payer OTHER, SELFPAY ==
[2019-03-01 09:54] LABS: 5-HIAA, Urine 1.9 mg/24 h (< OR = 6.0); Total Volume 650 mL
== END ==
PROVIDERS: PCP Student in an Organized Health Care Education/Training Program; Visit Provider Student in an Organized Health Care Education/Training Program
DX: R23.2 Flushing (principal)
CPT/HCPCS: 82570; 83497

== ENCOUNTER → 2019-03-11 14:20 | Outpatient (CLI) | payer OTHER, SELFPAY | PROVIDERS: PCP Student in an Organized Health Care Education/Training Program | DX: Z23 Encounter for immunization (principal) | CPT/HCPCS: 90471; 90686 ==

== ENCOUNTER → 2019-04-09 09:28 | Outpatient (CLI) | payer OTHER, SELFPAY | PROVIDERS: PCP Student in an Organized Health Care Education/Training Program | DX: R23.2 Flushing (principal) | CPT/HCPCS: 36415; 83001 ==

== ENCOUNTER → 2019-04-16 06:53 | Outpatient (CLI) | payer OTHER, SELFPAY ==
--- NOTE | 2019-04-16 06:56 | DI.MRI.S_ITS ---
PROCEDURE: MR LUMBAR SPINE WO CON INDICATIONS: Chronic progressive low back pain TECHNIQUE: Noncontrast sagittal T1 spin echo and T2 fast echo, sagittal STIR, axial T1 and T2 fast spin echo through the lumbar spine. In cases with scoliosis, additional coronal T2 fast spin echo may be performed. COMPARISON: Outside Facility, RG, MRI L-SPINE W/O CONTRAST, 11/05/2014, 17:00. FINDINGS: Image quality: Diagnostic Alignment and Curvature: There is normal bony alignment. Bone Marrow: Marrow is of normal overall signal. No acute vertebral body compression fractures. Spinal Cord: Conus medullaris terminates at the T12 level. Visualized cord demonstrates normal signal and size. Paraspinous Soft Tissues: No paravertebral masses. T12-L1: Normal appearance. L1-L2: No significant abnormality is seen. L2-L3: Mild loss of disc height is seen. Loss of disc signal is seen. Mild to moderate disc bulge is seen. A mild central disc protrusion is seen. Minimal to mild bilateral neural foraminal narrowing is seen. Mild central canal narrowing is seen. The previously seen central disc protrusion is improved compared to the prior examination. L3-L4: The disc height is well-preserved. Loss of disc signal is seen at this level. There is a focal annular fissure seen posteriorly. Mild to moderate facet hypertrophy is seen. Mild to moderate disc bulge is seen. There is mild bilateral neural foraminal narrowing seen. Mild central canal narrowing is seen. When comparison is made with the prior examination, these findings are similar. L4-L5: The disc height is well-preserved. Loss of disc signal is seen at this level. There is a focal annular fissure seen posteriorly. Moderate generalized disc bulge is seen. Otfo-zv-qbmruyly facet hypertrophy is seen. There is mild to moderate right-sided and moderate left-sided neural foraminal narrowing seen. Srpy-re-orapwnlf canal narrowing is seen. When comparison is made with the prior examination, these findings are similar. L5-S1: The disc height and disc signal are relatively well-preserved. Mild generalized disc bulge is seen. No significant neural foraminal or central canal narrowing can be seen. IMPRESSION: Multiple levels of lumbar spine degenerative change are seen, which are slightly improved at the L2-L3 level compared to the outside 2014 prior MRI. Otherwise, similar degenerative changes. Dictated by: Erich Song M.D. on 04/16/2019 at 10:00 Approved by: Erich Song M.D. on 04/16/2019 at 10:05
== END ==
PROVIDERS: PCP Student in an Organized Health Care Education/Training Program; Visit Provider Physical Medicine & Rehabilitation
DX: M54.5 Low back pain (principal); M47.27 Other spondylosis with radiculopathy, lumbosacral region; M47.26 Other spondylosis with radiculopathy, lumbar region; M53.3 Sacrococcygeal disorders, not elsewhere classified
CPT/HCPCS: 72148

== ENCOUNTER 2019-05-08 13:06 | Outpatient (CLI) | payer OTHER, SELFPAY ==
[2019-05-08] VITALS (10 sets, daily range): BP systolic 100–115; BP diastolic 62–83; PULSE 67–91; RESP 14–20; TEMP 36.1; O2SAT 96–100
--- NOTE | 2019-05-08 13:07 | DI.RAD.S_ITS ---
PROCEDURE: PAIN L/S FACET INJ/BLK 1ST ABIMAEL COMPARISON: None. INDICATIONS: SPONDYLOSIS FINDINGS: Fluoroscopic spot filming was performed to verify placement of spinal needles at the L4-L5, L5-S1 level(s), as labeled on the films. Appropriate location(s) of the needle tip(s) was confirmed by injection of iodinated contrast. Dictated by: Dhaval Medina M.D. on 05/08/2019 at 15:38 Approved by: Dhaval Mdeina M.D. on 05/08/2019 at 15:39
[2019-05-08] MEDS: fentaNYL 100 MCG/2 ML INJ 50 MCG IV (14:23)
[2019-05-08] MEDS: MIDAZOLAM 5 MG/5 ML VIAL IV (14:23)
[2019-05-08] MEDS: IOPAMIDOL 15 ML VIAL 3 ML INJ (14:36)
[2019-05-08] MEDS: BUPIVACAINE 0.5% (PF) VIAL 2 ML INJ (14:37)
[2019-05-08] MEDS: BETAMETHASONE 30 MG/5 ML MDV 12 MG INJ (14:37)
[2019-05-08] MEDS: LIDOCAINE 1% 20 ML 10 ML INJ (14:37)
--- NOTE | 2019-05-08 14:42 | P.PCN_ITS ---
Procedures Date/Time Date of procedure: 05/08/19 Time of procedure: 14:42 General Procedure description: PREOP DIAGNOSIS 1. FACET ARTHROPATHY 2. AXIAL LBP 3. MULTILEVEL DDD POST OP DIAGNOSIS 1. FACET ARTHROPATHY 2. AXIAL LBP 3. MULTILEVEL DDD PROCEDURES 1. FLUORSCOPICALLY GUIDED CONTRAST CONTROLLED FACET JOINT INJECTIONS BILATERAL L4/5, L5/S1 PHYSICIAN: Adrian Fowler, DO INDICATIONS Sandra is referred by Dr. Geronimo for treatment of Axial LBP FINDINGS Multilevel Facet Arthropathy with Clinically significant axial LBP DESCRIPTION OF PROCEDURE Fluoroscopically guided, contrast-controlled bilateral L4/5, L5/S1 facet joint i njections. Following review of allergy and review of potential side effects and complications, including, but not necessarily limited to, infection, allergic reaction, local tissue breakdown, stroke, temporary or permanent nerve injury, paralysis, and possible , the patient indicated that the patient understood and agreed to proceed. An informed consent document was signed by the patient, witnessed by a nurse, and placed in the patient's chart. Additionally, other treatment options including medications, modalities, and physical therapy were reviewed with the patient. After review of previous anaesthesic history and IV conscious sedation the patient was deemed safe to proceed with todays procedure with IV conscious sedation as ASA class II designation. Safety time-out was performed to confirm patient ID, procedure to be performed and site of procedure. IV sedation was accomplished with a combination of 3mg of Versed and 50mcg of Fentanyl was administered by the RN after DO order, titrated to patient comfort during the course of the procedure while the patient remained responsive to all verbal commands In the prone position, following sterile prep and drape of the lumbar region, the posterior aspect of the L4/5, L5/S1 facet joints were identified fluoroscopically. The skin was anesthetized via a 25-gauge 1.5-inch needle with 1% lidocaine solution into the corresponding facet joints. At this point, a 22- gauge 3.5-inch spinal needle was atraumatically introduced and advanced under fluoroscopic guidance into the corresponding facet joints. Following negative aspiration, injections of approximately 0.2-cc of Isovue 200 confirmed interarticular placement without vascular uptake. The identical procedure was then performed at the L4/5, L5/S1 facet joints on the left. Radiological data, including multiple fluoroscopic views of the lumbosacral spine, reveal a spinal needle at the L4/5, L5/S1 facet joints bilaterally. Subsequent views show flow of contrast material both superiorly and inferiorly within the joint space without vascular or intrathecal uptake. At this point, a total of 0.5 cc including a mixture of 0.25cc Marcaine and 0.25cc betamethasone was injected without complication into each of the corresponding facet joints. The patient tolerated the procedure well without signs or symptoms of complications prior to transfer to the recovery area continued monitoring without incident. The patient was then transferred to the recovery area where they were observed for an appropriate period of time after the injection. The patient reported a VAS score of 7 prior to the procedure and a post- procedure VAS of 0. Total Fluoroscopy Time: 20.3 seconds Total Conscious Sedation Time: 24min POST OP INSTRUCTIONS The patient was provided a Pain Log to continue to record their response to the target-specific procedure prior to follow-up visit with their referring physician. Additionally, specific post-injection care instructions and a contact number to our office were provided if concerns arise regarding possible complications associated with the procedure are suspected. Adrian Fowler DO Complications: none
--- NOTE | 2019-05-08 14:50 | PC.NURSE ---
Post procedure note: Time out at 1421. Medicated per providers orders. patient tolerated procedure well. VSS throughout. Able to sit and transfer to w/ without difficulties. Hand off report given to Rodriguez Moncada RN at 1447. Patient transferred from w/c to recliner independently. Pain level 1-2/10. Denied any unusual numbness or tingling to lower extremties.
== END 2019-05-08 15:04 | disposition home or self-care (01) ==
PROVIDERS: PCP Student in an Organized Health Care Education/Training Program; Visit Provider Physical Medicine & Rehabilitation
DX: M47.816 Spondylosis without myelopathy or radiculopathy, lumbar region (principal); M47.817 Spondylosis without myelopathy or radiculopathy, lumbosacral region; M54.5 Low back pain; M51.36 Other intervertebral disc degeneration, lumbar region; M51.37 Other intervertebral disc degeneration, lumbosacral region
CPT/HCPCS: 64493; 64494; 99152; J0702; J2250; J3010

== ENCOUNTER 2019-07-11 07:30 | Outpatient (RCR) | payer OTHER, SELFPAY ==
--- NOTE | 2019-06-06 15:30 | OT.OP.EVAL ---
Visit Care Team Role Provider Type Augie Geronimo MD Attending Provider Physician Primary Care Provider Specialty: Internal Medicine Address: [address] [place] [address], [address], [place], [address] Email: [email or web address] Occupational Therapy Initial Evaluation OT Outpatient Adult Evaluation Start: 06/09/19 15:54 Freq: Status: Active Protocol: Document 06/06/19 13:30 AMS (Rec: 06/09/19 16:26 AMS [email or web address]) General Information Visit Start Time 12:30 Visit Stop Time 13:15 Total Visit Minutes 45 Plan of Care Dates 06/06/19-08/28/19 Insurance Information [facility] Medical Treatment Setting Outpatient Care Note Type Initial Evaluation Referring Physician Augie Geronimo MD Reason for Referral Carpal tunnel syndrome, unspecified upper limb Identification Confirmed Yes: Photo ID Social History 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 Therapy Pain Assessment Pain Present Pain Reported Bilateral Volar Wrist Intensity 2 Scale Used Numeric (1 - 10) Right Hand Intensity 7 Scale Used Numeric (1 - 10) Neurological Assessment - Adult Reverse Phalen's Test Left or Right Right Scale Positive Comments Reproduction of symptoms Goals Objective Measurements (+) h/o use of night-time splint; currently not utilizing. (+) h/o use of built-up pen; currently not utilizing. c/o pain/discomfort w/ completion of writing tasks ('hurts to write'). (+) h/o recent ergo eval completed by outpatient PT; provided w/ stand-up computer desk and vertical mouse to put wrist in neutral. Reports having difficulties w/ managing keyboard reporting 'frequent adjustments'. (-) active participation in distal UE strengthening program; (-) completion of nerve glides/ tendon glides/distal UE stretches despite repetitive tasks required for work. (-) taking 'breaks' for stretching at this time. 0-60 degrees active R wrist ext; 0-60 degrees active R wrist flex; 0 -[address]; 0-30 degrees active R UD. 0-60 degrees active L wrist ext; 0- 55 degrees active L wrist flex ; 0-20 degrees active L wrist RD; 0-30 degrees active L wrist UD. Tendency of positioning of R wrist into slightly radially deviated position at rest. Meaningful abilities: difficulties reported w/ execution of written tasks w/ use of standard pen (c/o pain/ discomfort); difficulties reported w/ execution of work tasks which require repetitive movements w/ utilization of computer set-up; c/o impaired sensation and decreased hand/ wrist strength impacting day- to-day life including ability to complete baking tasks. Treatment Instructed in home exercise program. Instructed in passive distal UE range of motion stretches w/ elbow extended; instructed in tendon glides and wrist strengthening (ext and UD). Written and visual instructions provided for these, as well as personal TB for home use. Instructed in median nerve glide and reviewed; recommended following-up w/ PT (Joanna) re: suggestions for keyboard set-up and recommended returning to night time splint w/ positioning of wrist in slight ext to support nerve gliding. Patient denied questions re: HEP and recommendations, as well as POC. 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 Patient will be modified independent with execution of home exercise program utilizing provided written and visual instructions from therapist. 2. Patient will present with increased success with active participation in meaningful activities (e.g., baking tasks ) due to improved bilateral wrist strength; patient will present w/ 5/5 R wrist UD. 3. Patient will present with increased success with active participation in meaningful activities (e.g., baking tasks ) due to improved bilateral wrist strength; patient will present w/ 5/5 R wrist ext. 4. Patient will report increased quality of sleep due to reduction of pain symptoms ; this will be evidenced by patient indicating 2 or less out of 10 on the Pain Assessment Grid relative to the distal R UE. Assessment/Plan Patient Response Good Rehabilitation Potential Good Treatment Assessment Patient is a right hand dominant 48 year-old female referred to outpatient OT by PCP secondary to carpal tunnel syndrome. PMH: N/A; nothing was indicated. However, h/o carpal tunnel symptoms and use of night time splint. In addition, ergo eval was completed by PT. 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 Outpatient OT is recommended to address these areas in order to maximize patient's success with active engagement in meaningful tasks in a variety of environments. Recommended follow-up w/ PT for additional recommendations for work station set-up relative to positioning of keyboard. Home Exercise Program Please refer to treatment section of note for specific details. Reviewed with Patient Goals,Progress Being Made,Home Exercise Program Patient Understanding Good Comment 12 weeks Comment Frequency 1 x every 2 weeks Therapeutic Contents Active Range of Motion, Adaptive Equipment Education, Client Education,Cognitive Skills Development,Functional Activities,Home Exercise Program,Joint Protection, Manual Therapy,Education, Neurodevelopment Treatment, Neuromuscular Re-Education, Self-Care,Splinting,Stretching /Flexibility Activities, Therapeutic Activities, Therapeutic Exercises, Modalities,Sensory Re- education Modalities As Needed,As Prescribed Types of Modalities Contrast Bath,E-Stim, Fluidotherapy,Functional Stimulation (FES),Ice Massage, T.E.N. Stimulation,TENS Placement/Application, Ultrasound,Other Additional Types of Modalities Paraffin/Heat Patient Instruction Home Exercise Program,Plan of Care,Questions/Concerns
--- NOTE | 2019-06-20 15:30 | OT.OP.TRT ---
Visit Care Team Role Provider Type Augie Geronimo MD Attending Provider Physician Primary Care Provider Specialty: Internal Medicine Address: [address] [place] [address], Suite [facility]– [place], [place], [address] Email: [email or web address] Occupational Therapy Treatment Note OT Outpatient Treatment Note - Adult Start: 06/09/19 15:54 Freq: Status: Active Protocol: Document 06/20/19 15:30 AMS (Rec: 06/25/19 14:19 AMS [email or web address]) OT Outpatient Adult Treatment Note Session Time Visit Start Time 12:30 Visit Stop Time 13:15 Total Visit Minutes 45 Visit Information Plan of Care Dates 06/06/19-08/28/19 Setting Treatment Setting Outpatient Care Visit Type Note Type Treatment Note General Information General Information Patient is a right hand dominant 48 year-old female referred to outpatient OT by PCP secondary to carpal tunnel syndrome. PMH: N/A; nothing was indicated. However, h/o carpal tunnel symptoms and use of night time splint. In addition, ergo eval was completed by PT. - Subjective Identification Type Name,Picture Identification Reconciled With Medical Record Chief Complaint(s) Restricts - Objective Objective Measurements Standardized digit/employee benefits insurance agent strength testing completed on this date; please refer to standardized section of note for specific details. Please refer to below for progress towards meeting established OT goals. 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 Patient will be modified independent with execution of home exercise program utilizing provided written and visual instructions from therapist. 2. Patient will present with increased success with active participation in meaningful activities (e.g., baking tasks ) due to improved bilateral wrist strength; patient will present w/ 5/5 R wrist UD. 3. Patient will present with increased success with active participation in meaningful activities (e.g., baking tasks ) due to improved bilateral wrist strength; patient will present w/ 5/5 R wrist ext. 4. Patient will report increased quality of sleep due to reduction of pain symptoms ; this will be evidenced by patient indicating 2 or less out of 10 on the Pain Assessment Grid relative to the distal R UE. - Treatment 2 Descriptor Manual therapy. Joint mobs to facilitate wrist ext, wrist flex, wrist RD and wrist UD. 1 Descriptor Ultrasound. 20% duty cycle to address inflammation. Skin intact pre- and post- treatment. Applied to volar radial surface of right wrist. Exercises 1 Descriptor HEP/POC. Initiated hand/finger strengthening utilizing provided green theraputty. Instruction was completed in re: storage and care of theraputty. Instructed in passive wrist/digit flexor stretch w/ slight UD to stretch radial side. Patient denied questions. Complexity Upgraded - Assessment Assessment of Improvement Advanced HEP. Initiated theraputty finger/hand strengthening exercises. Slightly decreased bilateral employee benefits insurance agent strength compared to same -aged female peers; R lateral pinch, L lateral pinch and L 3 -jaw pinch within 1 SD below the mean and/or slightly above the mean compared to same- aged peers. R 3-jaw pinch > 1 SD below the mean. Advanced home stretches to address radial side tightness. Recommend that therapist advanced HEP/POC as tolerated. Progress resistance as tolerated. Home Exercise Program Please refer to treatment section of note for specific details. - Plan Therapy Recommendations Continue with Current Program, Advance per Rehabilitation Protocol Occupational Therapy Assessment OT Outpatient Muscle Testing Start: 06/09/19 15:54 Freq: Status: Active Protocol: Document 06/20/19 15:30 AMS (Rec: 06/25/19 14:19 AMS [email or web address]) Wrist Strength Wrist Manual Muscle Testing Left Flexion (C7) 5 Normal Extension (C6) 4+ Good+ Ulnar Deviation 4 Good Radial Deviation 4 Good Right Flexion (C7) 5 Normal Extension (C6) 4 Good Ulnar Deviation 4 Good Radial Deviation 5 Normal Property Claims Manager/Hand Strength Property Claims Manager/Hand Strength Left Property Claims Manager Dynamometer II 43.3 Lateral Pinch Strengh (lbs) 16.7 Palmar Pinch Strength (lbs) 15.0 Comments Norms for 45-49 year-old women L Property Claims Manager II = 62.2 +/- 15.1 pounds of force; Interpretation = > 1 SD below mean Norms for 45-49 year-old women L Lateral Pinch = 16.6 +/- 2. 9 pounds of force; Interpretation = slightly above mean Norms for 45-49 year-old women L 3-Jaw Pinch = 17.5 +/- 2.8 pounds of force; Interpretation = within 1 SD below mean Right Property Claims Manager Dynamometer II 40.0 Lateral Pinch Strengh (lbs) 17.0 Palmar Pinch Strength (lbs) 13.0 Comments Norms for 45-49 year-old women R Property Claims Manager II = 62.2 +/- 15.1 pounds of force; Interpretation = > 1 SD below mean Norms for 45-49 year-old women R Lateral Pinch = 17.6 +/- 3. 2 pounds of force; Interpretation = within 1 SD below mean Norms for 45-49 year-old women R 3-Jaw Pinch = 17.9 +/- 3.0 pounds of force; Interpretation = > 1 SD below mean
--- NOTE | 2019-07-11 15:30 | OT.OP.TRT ---
Visit Care Team Role Provider Type Augie Geronimo MD Attending Provider Physician Primary Care Provider Specialty: Internal Medicine Address: [address] [place] [address], [address], [place], [address] Email: [email or web address] Occupational Therapy Treatment Note OT Outpatient Treatment Note - Adult Start: 06/09/19 15:54 Freq: Status: Active Protocol: Document 07/11/19 15:32 AMS (Rec: 07/11/19 15:32 AMS [email or web address]) OT Outpatient Adult Treatment Note Session Time Visit Start Time 07:35 Visit Stop Time 08:00 Total Visit Minutes 25 Visit Information Plan of Care Dates 06/06/19-08/28/19 Setting Treatment Setting Outpatient Care Visit Type Note Type Treatment Note General Information General Information Patient is a right hand dominant 48 year-old female referred to outpatient OT by PCP secondary to carpal tunnel syndrome. PMH: N/A; nothing was indicated. However, h/o carpal tunnel symptoms and use of night time splint. In addition, ergo eval was completed by PT. - Subjective Identification Type Name,Picture Identification Reconciled With Medical Record Observations I am still having significant pain in this wrist. I thought it would have gotten better like it used to per Sandra. My dog chewed up my brace so I have to get a new one. Chief Complaint(s) Restricts - Objective Objective Measurements Please refer to below for progress towards meeting established OT goals. Custodial Goals GOALS D/C 1. Patient will present with increased success with active participation in meaningful activities (e.g., baking tasks ) due to improved bilateral wrist strength; patient will present w/ 5/5 R wrist UD. 2. Patient will present with increased success with active participation in meaningful activities (e.g., baking tasks ) due to improved bilateral wrist strength; patient will present w/ 5/5 R wrist ext. 3. Patient will report increased quality of sleep due to reduction of pain symptoms ; this will be evidenced by patient indicating 2 or less out of 10 on the Pain Assessment Grid relative to the distal R UE. GOALS MET Patient is mod independent with execution of current home exercise program. *MET - Treatment 2 Descriptor Manual therapy. Joint mobs to facilitate wrist ext, wrist flex, wrist RD and wrist UD. 1 Descriptor Ultrasound. 20% duty cycle to address inflammation. Skin intact pre- and post- treatment. Applied to volar radial surface of right wrist. Exercises 1 Descriptor POC. Patient reports that pain from carpal tunnel symptoms are impacting day-to-day life. Recommended returning to PCP to address less conservative options to address symptoms given impact on day-to-day life. - Assessment Assessment of Improvement Patient reports that symptoms are impacting her day-to-day life; she reports that pain has not significantly reduced with therapy and/or conservative approach to referring diagnosis. Thus, recommended return to PCP to explore less conservative options to address symptoms. Patient in agreement. - Plan Therapy Recommendations Discharge from Occupational Therapy Suggested Referrals Primary Care Physician
--- NOTE | 2019-07-24 09:11 | OT.OP.DC ---
Visit Care Team Role Provider Type Augie Geronimo MD Attending Provider Physician Primary Care Provider Address: [address] [place] [address], [address], [place], [address] Email: [email or web address] Outpatient OT Outpatient Adult Evaluation Start: 06/09/19 15:54 Freq: Status: Active Protocol: Document 06/06/19 13:30 AMS (Rec: 06/09/19 16:26 AMS [email or web address]) General Information Session Time Visit Start Time 12:30 Visit Stop Time 13:15 Total Visit Minutes 45 Visit Information Plan of Care Dates 06/06/19-08/28/19 Insurance Information [facility] Medical Setting Treatment Setting Outpatient Care Visit Type Note Type Initial Evaluation Referral Referring Physician Augie Geronimo MD Reason for Referral Carpal tunnel syndrome, unspecified upper limb Identification Identification Confirmed Yes: Photo ID Social Information Social History 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 Therapy Pain Assessment Pain Present Pain Present Pain Reported Location Bilateral Volar Wrist Intensity 2 Scale Used Numeric (1 - 10) Right Hand Intensity 7 Scale Used Numeric (1 - 10) Neurological Assessment - Adult Neurological Function - Wrist/Hand Reverse Phalen's Test Left or Right Right Scale Positive Comments Reproduction of symptoms Goals Objective Measurements Objective Measurements (+) h/o use of night-time splint; currently not utilizing. (+) h/o use of built-up pen; currently not utilizing. c/o pain/discomfort w/ completion of writing tasks ('hurts to write'). (+) h/o recent ergo eval completed by outpatient PT; provided w/ stand-up computer desk and vertical mouse to put wrist in neutral. Reports having difficulties w/ managing keyboard reporting 'frequent adjustments'. (-) active participation in distal UE strengthening program; (-) completion of nerve glides/ tendon glides/distal UE stretches despite repetitive tasks required for work. (-) taking 'breaks' for stretching at this time. 0-60 degrees active R wrist ext; 0-60 degrees active R wrist flex; 0 -[address]; 0-30 degrees active R UD. 0-60 degrees active L wrist ext; 0- 55 degrees active L wrist flex ; 0-20 degrees active L wrist RD; 0-30 degrees active L wrist UD. Tendency of positioning of R wrist into slightly radially deviated position at rest. Meaningful abilities: difficulties reported w/ execution of written tasks w/ use of standard pen (c/o pain/ discomfort); difficulties reported w/ execution of work tasks which require repetitive movements w/ utilization of computer set-up; c/o impaired sensation and decreased hand/ wrist strength impacting day- to-day life including ability to complete baking tasks. Treatment Treatment Instructed in home exercise program. Instructed in passive distal UE range of motion stretches w/ elbow extended; instructed in tendon glides and wrist strengthening (ext and UD). Written and visual instructions provided for these, as well as personal TB for home use. Instructed in median nerve glide and reviewed; recommended following-up w/ PT (Joanna) re: suggestions for keyboard set-up and recommended returning to night time splint w/ positioning of wrist in slight ext to support nerve gliding. Patient denied questions re: HEP and recommendations, as well as POC. Penitentiary Goals Penitentiary Goals 1. Patient will be modified independent with execution of home exercise program utilizing provided written and visual instructions from therapist. 2. Patient will present with increased success with active participation in meaningful activities (e.g., baking tasks ) due to improved bilateral wrist strength; patient will present w/ 5/5 R wrist UD. 3. Patient will present with increased success with active participation in meaningful activities (e.g., baking tasks ) due to improved bilateral wrist strength; patient will present w/ 5/5 R wrist ext. 4. Patient will report increased quality of sleep due to reduction of pain symptoms ; this will be evidenced by patient indicating 2 or less out of 10 on the Pain Assessment Grid relative to the distal R UE. Assessment/Plan Assessment Patient Response Good Rehabilitation Potential Good Treatment Assessment Patient is a right hand dominant 48 year-old female referred to outpatient OT by PCP secondary to carpal tunnel syndrome. PMH: N/A; nothing was indicated. However, h/o carpal tunnel symptoms and use of night time splint. In addition, ergo eval was completed by PT. 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 Outpatient OT is recommended to address these areas in order to maximize patient's success with active engagement in meaningful tasks in a variety of environments. Recommended follow-up w/ PT for additional recommendations for work station set-up relative to positioning of keyboard. Home Exercise Program Please refer to treatment section of note for specific details. Reviewed with Patient Goals,Progress Being Made,Home Exercise Program Patient Understanding Good Plan Comment 12 weeks Comment Frequency 1 x every 2 weeks Therapeutic Contents Active Range of Motion, Adaptive Equipment Education, Client Education,Cognitive Skills Development,Functional Activities,Home Exercise Program,Joint Protection, Manual Therapy,Education, Neurodevelopment Treatment, Neuromuscular Re-Education, Self-Care,Splinting,Stretching /Flexibility Activities, Therapeutic Activities, Therapeutic Exercises, Modalities,Sensory Re- education Modalities As Needed,As Prescribed Types of Modalities Contrast Bath,E-Stim, Fluidotherapy,Functional Stimulation (FES),Ice Massage, T.E.N. Stimulation,TENS Placement/Application, Ultrasound,Other Additional Types of Modalities Paraffin/Heat Patient Instruction Home Exercise Program,Plan of Care,Questions/Concerns Sensory Assessment Sensory Profile2 Functional Wrist/Hand Scan Hand Side OT Outpatient Muscle Testing Start: 06/09/19 15:54 Freq: Status: Active Protocol: Document 06/20/19 15:30 AMS (Rec: 06/25/19 14:19 AMS [email or web address]) Wrist Strength Wrist Manual Muscle Testing Left Flexion (C7) 5 Normal Extension (C6) 4+ Good+ Ulnar Deviation 4 Good Radial Deviation 4 Good Right Flexion (C7) 5 Normal Extension (C6) 4 Good Ulnar Deviation 4 Good Radial Deviation 5 Normal Rotary Drier/Hand Strength Rotary Drier/Hand Strength Left Rotary Drier Dynamometer II 43.3 Lateral Pinch Strengh (lbs) 16.7 Palmar Pinch Strength (lbs) 15.0 Comments Norms for 45-49 year-old women L Rotary Drier II = 62.2 +/- 15.1 pounds of force; Interpretation = > 1 SD below mean Norms for 45-49 year-old women L Lateral Pinch = 16.6 +/- 2. 9 pounds of force; Interpretation = slightly above mean Norms for 45-49 year-old women L 3-Jaw Pinch = 17.5 +/- 2.8 pounds of force; Interpretation = within 1 SD below mean Right Rotary Drier Dynamometer II 40.0 Lateral Pinch Strengh (lbs) 17.0 Palmar Pinch Strength (lbs) 13.0 Comments Norms for 45-49 year-old women R Rotary Drier II = 62.2 +/- 15.1 pounds of force; Interpretation = > 1 SD below mean Norms for 45-49 year-old women R Lateral Pinch = 17.6 +/- 3. 2 pounds of force; Interpretation = within 1 SD below mean Norms for 45-49 year-old women R 3-Jaw Pinch = 17.9 +/- 3.0 pounds of force; Interpretation = > 1 SD below mean OT Outpatient Treatment Note - Adult Start: 06/09/19 15:54 Freq: Status: Active Protocol: Document 07/11/19 15:32 AMS (Rec: 07/11/19 15:32 AMS [email or web address]) OT Outpatient Adult Treatment Note Session Time Visit Start Time 07:35 Visit Stop Time 08:00 Total Visit Minutes 25 Visit Information Plan of Care Dates 06/06/19-08/28/19 Setting Treatment Setting Outpatient Care Visit Type Note Type Treatment Note General Information General Information Patient is a right hand dominant 48 year-old female referred to outpatient OT by PCP secondary to carpal tunnel syndrome. PMH: N/A; nothing was indicated. However, h/o carpal tunnel symptoms and use of night time splint. In addition, ergo eval was completed by PT. - Subjective Identification Type Name,Picture Identification Reconciled With Medical Record Observations I am still having significant pain in this wrist. I thought it would have gotten better like it used to per Sandra. My dog chewed up my brace so I have to get a new one. Chief Complaint(s) Restricts - Objective Objective Measurements Please refer to below for progress towards meeting established OT goals. Penitentiary Goals GOALS D/C 1. Patient will present with increased success with active participation in meaningful activities (e.g., baking tasks ) due to improved bilateral wrist strength; patient will present w/ /5 R wrist UD. 2. Patient will present with increased success with active participation in meaningful activities (e.g., baking tasks ) due to improved bilateral wrist strength; patient will present w/ /5 R wrist ext. 3. Patient will report increased quality of sleep due to reduction of pain symptoms ; this will be evidenced by patient indicating 2 or less out of 10 on the Pain Assessment Grid relative to the distal R UE. GOALS MET Patient is mod independent with execution of current home exercise program. *MET - Treatment 2 Descriptor Manual therapy. Joint mobs to facilitate wrist ext, wrist flex, wrist RD and wrist UD. 1 Descriptor Ultrasound. 20% duty cycle to address inflammation. Skin intact pre- and post- treatment. Applied to volar radial surface of right wrist. Exercises 1 Descriptor POC. Patient reports that pain from carpal tunnel symptoms are impacting day-to-day life. Recommended returning to PCP to address less conservative options to address symptoms given impact on day-to-day life. - Assessment Assessment of Improvement Patient reports that symptoms are impacting her day-to-day life; she reports that pain has not significantly reduced with therapy and/or conservative approach to referring diagnosis. Thus, recommended return to PCP to explore less conservative options to address symptoms. Patient in agreement. - Plan Therapy Recommendations Discharge from Occupational Therapy Suggested Referrals Primary Care Physician
== END 2019-07-24 13:32 ==
LOC: OT 07:30
PROVIDERS: PCP Student in an Organized Health Care Education/Training Program; Visit Provider Student in an Organized Health Care Education/Training Program
DX: G56.00 Carpal tunnel syndrome, unspecified upper limb (principal)
CPT/HCPCS: 97035; 97110; 97140; 97165

== ENCOUNTER 2019-07-22 13:14 | Outpatient (CLI) | payer OTHER, SELFPAY ==
[2019-07-22] VITALS (12 sets, daily range): BP systolic 101–118; BP diastolic 60–81; PULSE 65–78; RESP 15–17; TEMP 36.6; O2SAT 98–100
--- NOTE | 2019-07-22 13:16 | DI.RAD.S_ITS ---
PROCEDURE: PAIN L/S FACET INJ/BLK 1ST ABIMAEL COMPARISON: [facility], XA, PAIN L/S FACET INJ/BLK 1ST ABIMAEL, 05/08/2019, 14:29. INDICATIONS: SPONDYLOSIS FINDINGS: Bilateral 3 level needle tip localization was performed for L4, L5, and S1 bilateral medial branch block procedures.. IMPRESSION: Successful needle tip localization bilaterally, 6 separate localizations, for L4-S1 bilateral medial branch block procedures. Dictated by: Benito Pittman M.D. on 07/22/2019 at 15:06 Approved by: Benito Pittman M.D. on 07/22/2019 at 15:08
--- NOTE | 2019-07-22 13:16 | DI.RAD.S_ITS ---
PROCEDURE: XR LUMBAR SPINE MIN 4V INDICATIONS: Chronic progressive low back pain TECHNIQUE: 5 views of the lumbar spine acquired. COMPARISON: None. FINDINGS: Bones: 5 nonrib-bearing vertebrae are present. There is normal bony alignment. No vertebral body compression fractures. No suspicious bony lesions. There is a small degree of degenerative disc height reduction along the entirety of the LS-spine, but no area of trauma or significant subluxation is found. Facet osteoarthritis becomes progressively more prominent from L3-S1, and is best seen at L4-5 and L5-S1. Soft tissues: Overlying bowel gas pattern is normal. No suspicious soft tissue calcifications. Flexion/extension: There is normal range of motion, with preserved normal alignment. IMPRESSION: The degenerative disc disease and facet osteoarthritis along the lumbosacral spine is relatively mild but best seen at the facet joints from L3-S1. This is the likely site of significant back pain. Dictated by: Benito Pittman M.D. on 07/22/2019 at 16:11 Approved by: Benito Pittman M.D. on 07/22/2019 at 16:13
[2019-07-22] MEDS: MIDAZOLAM 5 MG/5 ML VIAL IV (14:03)
[2019-07-22] MEDS: fentaNYL 100 MCG/2 ML INJ 50 MCG IV (14:03)
[2019-07-22] MEDS: IOPAMIDOL 15 ML VIAL 3 ML INJ (14:19)
[2019-07-22] MEDS: LIDOCAINE 1% 20 ML 10 ML INJ (14:19)
[2019-07-22] MEDS: BUPIVACAINE 0.5% (PF) VIAL 5 ML INJ (14:19)
--- NOTE | 2019-07-22 14:27 | PC.NURSE ---
ASSISTING PT OFF TABLE AND TRANSPORTING TO POST PROC AREA IN STABLE CONDITION. PASSING RN CARE OF PT OFF TO JAYRO Wilkerson RN
--- NOTE | 2019-07-22 14:30 | P.PCN_ITS ---
Procedures Date/Time Date of procedure: 07/22/19 Time of procedure: 14:31 General Procedure description: Procedure description: 1. FACET ARTHROPATHY PROCEDURES: 1. BILATERAL- L4, L5 and S1 DIAGNOSTIC MB BLOCKS with LA Anesthetic PHYSICIAN: Adrian Fowler DO INDICATIONS: Sandra is referred by for treatment of Bilateral Axial LBP. DESCRIPTION OF PROCEDURE Fluoroscopically guided, contrast-controlled bilateral L4, L5 and S1 medial branch blocks with 0.5cc of 0.5% Marcaine. Following review of allergy and review of potential side effects and complications, including, but not necessarily limited to, infection, allergic reaction, local tissue breakdown, nerve injury, paralysis, stroke and possible , the patient indicated that the patient understood and agreed to proceed. An informed consent document was signed by the patient, witnessed by a nurse, and placed in the patient's chart. After review of previous anaesthesic history and IV conscious sedation the patient was deemed safe to proceed with todays procedure with IV conscious sedation as ASA class II designation. Safety time-out was performed to confirm patient ID, procedure to be performed and site of procedure. IV sedation was accomplished with a combination of 5mg of Versed and 50mcg of Fentanyl was administered by the RN after DO order, titrated to patient comfort during the course of the procedure while the patient remained responsive to all verbal commands In the prone position, following sterile prep and drape of the lumbar region, the right L4, L5 and S1 anatomical location of the medial branch of the dorsal ramus was identified fluoroscopically. Subsequently an anesthetic skin wheal using 1% lidocaine solution was initiated at each of the anatomical spots. Subsequently then a 22-gauge 5-inch spinal needle was atraumatically introduced and advanced under fluoroscopic guidance at each of the corresponding sites at the right L4, L5 and S1 MB. After negative aspiration, 0.2cc of Isovue 200 was injected, confirming placement without vascular or intrathecal uptake. Subsequently then 0.5cc of 0.5% Marcaine solution was injected at each of the corresponding sites at the right L4, L5 and S1 medial branch locations. The iden tical procedure was replicated on the left. The patient tolerated the procedure well without signs or symptoms of complications prior to transfer to the recovery area continued monitoring without incident. Post-procedure, the patient was monitored initiating provocative activities to measure the amount of relief from block of the facetogenic pain. The patient reported a VAS of 7 prior to the procedure and a post-procedure VAS of 1. It has been a pleasure to assist in the diagnostic and therapeutic care of your patient. Total Fluoroscopy Time: 19 seconds Total Conscious Sedation Time: 24min POST OP INSTRUCTIONS The patient was provided with a Pain Log to complete over the next several hours and subsequent days prior to the patient's follow up with the ordering physician. If the patient has partner integration planner relief to the solution applied, then they may be a candidate for medial branch rhizotomy. The patient is aware, was provided, once again, with a Pain Log and will follow up with the referring physician for review and clinical correlation Adrian Fowler DO Complications: none
--- NOTE | 2019-07-22 15:28 | PC.NURSE ---
Pt returned post procedure at 1405 via [facility]. She is alert and able to transfer from [facility] to chair independently. Resumed monitoring from YIFAN Han
== END 2019-07-22 14:58 | disposition home or self-care (01) ==
LOC: RAD 13:15
PROVIDERS: PCP Student in an Organized Health Care Education/Training Program; Referring Provider Physical Medicine & Rehabilitation; Visit Provider Physical Medicine & Rehabilitation
DX: M47.816 Spondylosis without myelopathy or radiculopathy, lumbar region (principal); M47.817 Spondylosis without myelopathy or radiculopathy, lumbosacral region; M54.5 Low back pain
CPT/HCPCS: 64493; 64494; 72110; 99152; J2250; J3010

== ENCOUNTER → 2019-11-18 15:46 | Outpatient (CLI) | payer OTHER, SELFPAY ==
[2019-11-18 16:37] LABS: Erythrocyte Sedimentation Rate 8 MM/HR (0-20)
[2019-11-18 16:41] LABS: C-Reactive Protein Quant 0.8 mg/dL (<1.0)
[2019-11-18 16:42] LABS: Rheumatoid Factor < 8.6 IU/mL (<12.0)
[2019-11-20 16:14] LABS: ANA Screen, IFA Negative (.)
== END ==
PROVIDERS: PCP Student in an Organized Health Care Education/Training Program; Referring Provider Student in an Organized Health Care Education/Training Program; Visit Provider Student in an Organized Health Care Education/Training Program
DX: M13.0 Polyarthritis, unspecified (principal)
CPT/HCPCS: 36415; 85651; 86038; 86140; 86430

== ENCOUNTER → 2019-11-26 12:10 | Outpatient (CLI) | payer OTHER, SELFPAY ==
[2019-11-26 17:10] LABS: Estradiol, Total 118.7 pg/mL
== END ==
PROVIDERS: PCP Student in an Organized Health Care Education/Training Program
DX: R23.2 Flushing (principal)
CPT/HCPCS: 36415; 82670; 83001

== ENCOUNTER → 2019-12-04 15:48 | Outpatient (CLI) | payer OTHER, SELFPAY ==
[2019-12-04 18:17] LABS: Estradiol, Total 97.9 pg/mL
== END ==
PROVIDERS: PCP Student in an Organized Health Care Education/Training Program
DX: R23.2 Flushing (principal)
CPT/HCPCS: 36415; 82670; 83001; 84270

== ENCOUNTER → 2020-01-23 10:21 | Outpatient (CLI) | payer OTHER, SELFPAY ==
--- NOTE | 2020-01-23 10:22 | DI.RAD.S_ITS ---
PROCEDURE: XR CHEST 2V INDICATIONS: cough TECHNIQUE: 2 views of the chest were acquired. COMPARISON: [facility], CR, XR CHEST 2V, 01/07/2019, 12:48. FINDINGS: Surgical changes and devices: None. Lungs and pleura: Lungs are clear. No pleural effusions or pneumothorax. Mediastinum: Mediastinal contours are normal. Heart size is normal. Bones and chest wall: No suspicious bony abnormalities. Soft tissues appear unremarkable. IMPRESSION: No acute cardiopulmonary pathology. Dictated by: Tevin Poon M.D. on 01/23/2020 at 10:34 Approved by: Tevin Poon M.D. on 01/23/2020 at 11:05
== END ==
PROVIDERS: PCP Student in an Organized Health Care Education/Training Program; Referring Provider Student in an Organized Health Care Education/Training Program; Visit Provider Student in an Organized Health Care Education/Training Program
DX: R05 Cough (principal)
CPT/HCPCS: 71046

== ENCOUNTER → 2020-02-12 15:49 | Outpatient (CLI) | payer OTHER, SELFPAY ==
[2020-02-13 09:57] LABS: COVID19 Sendout Not Detected (Not Detect)
== END ==
PROVIDERS: PCP Student in an Organized Health Care Education/Training Program; Visit Provider Nurse Practitioner
DX: R05 Cough (principal); Z11.59 Encounter for screening for other viral diseases
CPT/HCPCS: 87635

== ENCOUNTER → 2020-04-15 04:05 | Outpatient (CLI) | payer OTHER, SELFPAY | PROVIDERS: PCP Student in an Organized Health Care Education/Training Program; Referring Provider Internal Medicine; Visit Provider Internal Medicine | DX: Z23 Encounter for immunization (principal) | CPT/HCPCS: 90471; 90686 ==

== ENCOUNTER → 2020-06-23 15:06 | Outpatient (CLI) | payer OTHER, SELFPAY ==
[2020-06-23] MEDS: COVID-19 VACC(MODERNA-1)/PF 100 MCG/0.5 ML VIAL IM (15:18)
== END ==
PROVIDERS: PCP Student in an Organized Health Care Education/Training Program; Visit Provider Internal Medicine
DX: Z23 Encounter for immunization (principal)
CPT/HCPCS: 0011A; 91301

== ENCOUNTER → 2020-07-20 10:50 | Outpatient (CLI) | payer OTHER, SELFPAY ==
[2020-07-20] MEDS: COVID-19 VACC #2, MRNA(MOD) 100 MCG/0.5 ML VIAL IM (10:55)
== END ==
PROVIDERS: PCP Student in an Organized Health Care Education/Training Program; Visit Provider Internal Medicine
DX: Z23 Encounter for immunization (principal)
CPT/HCPCS: 0012A; 91301

== ENCOUNTER → 2020-08-09 11:28 | Outpatient (CLI) | payer OTHER, SELFPAY ==
--- NOTE | 2020-08-09 11:29 | DI.US.S_ITS ---
PROCEDURE: US PERIPH VENOUS LOW EXTREM LT INDICATIONS: knee pain with calf swelling and stiffness, r/o dvt TECHNIQUE: Real-time imaging, as well as color and pulse Doppler interrogation, were performed of the lower extremity deep veins from the inguinal ligament to the popliteal fossa. COMPARISON: None. FINDINGS: The common femoral, femoral and popliteal veins are normally compressible, and free of intraluminal thrombus. Color and pulse Doppler demonstrate normal phasic intraluminal flow. There is normal augmentation response to distal compression maneuver. IMPRESSION: No DVT found. Dictated by: Benito Pittman M.D. on 08/09/2020 at 11:55 Approved by: Benito Pittman M.D. on 08/09/2020 at 11:55
== END ==
PROVIDERS: PCP Student in an Organized Health Care Education/Training Program; Referring Provider Physician Assistant; Visit Provider Physician Assistant
DX: M25.562 Pain in left knee (principal); M79.89 Other specified soft tissue disorders
CPT/HCPCS: 93971

== ENCOUNTER → 2020-08-24 07:13 | Outpatient (CLI) | payer OTHER, SELFPAY ==
--- NOTE | 2020-08-24 07:14 | DI.MRI.S_ITS ---
PROCEDURE: MR KNEE LT WO CON INDICATIONS: Left knee pain. Persists after remote injury TECHNIQUE: Noncontrast sagittal PD fast spin echo and T2 fast spin echo with fat saturation, sagittal 3-D FLASH with fat saturation; coronal T1 spin echo and PD fast spin echo with fat saturation, and axial PD fast spin echo with fat saturation through the knee. COMPARISON: None. FINDINGS: Image quality: Excellent. Menisci: The medial and lateral menisci demonstrate normal morphology and internal signal. The meniscal root ligaments appear intact. Cruciate ligaments: The anterior and posterior cruciate ligaments appear intact. Medial structures: The medial collateral ligament appears intact. Visualized portions of the pes anserinus tendons appear normal. No abnormal bursal fluid. Lateral structures: The lateral collateral ligament, long and short heads of the biceps femoris tendon appear intact. The popliteus tendon appears normal. Iliotibial band appears normal. Anterior structures: The quadriceps and patellar tendons appear intact. Mild T2 signal elevation within the patellar tendon at the patellar insertion site. Mild lateral patellar subluxation is present. No femoral trochlear dysplasia or ventral trochlear prominence. No edema in the infrapatellar fat pad. Bones and cartilage: No bone marrow contusions or fractures. Articular cartilage fibrillation overlies the lateral patellar facet. Mild articular cartilage loss diffusely overlies the weight-bearing aspects of the medial femoral condyle and medial tibial plateau. Joint space: There is a moderate knee joint effusion and a trace Cohen's cyst. Normal appearing synovial plicae are incidentally noted. IMPRESSION: 1. No internal derangement. 2. Knee joint effusion and trace Cohen's cyst. 3. Mild patellar tendinitis. 4. Mild lateral patellar subluxation. 5. Mild medial and patellofemoral compartment articular cartilage loss. Dictated by: Kimberly Fine M.D. on 08/24/2020 at 10:19 Approved by: Kimberly Fine M.D. on 08/24/2020 at 10:21
== END ==
PROVIDERS: PCP Student in an Organized Health Care Education/Training Program; Referring Provider Student in an Organized Health Care Education/Training Program; Visit Provider Student in an Organized Health Care Education/Training Program
DX: M25.562 Pain in left knee (principal); M25.462 Effusion, left knee; M76.52 Patellar tendinitis, left knee; S83.012A Lateral subluxation of left patella, initial encounter
CPT/HCPCS: 73721

== ENCOUNTER → 2020-10-04 14:29 | Outpatient (CLI) | payer OTHER, SELFPAY ==
[2020-10-04 15:20] LABS: COVID19 -Nasal RAPID Negative (Negative)
== END ==
PROVIDERS: PCP Student in an Organized Health Care Education/Training Program; Visit Provider Physical Medicine & Rehabilitation
DX: Z20.822 Contact with and (suspected) exposure to COVID-19 (principal)
CPT/HCPCS: 87635; C9803

== ENCOUNTER 2020-10-05 07:14 | Outpatient (CLI) | payer OTHER, SELFPAY ==
[2020-10-05] VITALS (14 sets, daily range): BP systolic 95–119; BP diastolic 57–74; PULSE 59–69; RESP 13–22; TEMP 35.9; O2SAT 95–99
--- NOTE | 2020-10-05 07:15 | DI.RAD.S_ITS ---
PROCEDURE: PAIN L/S MED/LAT N RFA BILAT INDICATIONS: SPONDYLOSIS COMPARISON: [facility], XA, PAIN L/S FACET INJ/BLK 1ST ABIMAEL, 07/22/2019, 14:07. FINDINGS: Fluoroscopic spot filming was performed to verify placement of spinal needles on the left and on the right at the L4, L5, and S1 levels as labeled on the films. IMPRESSION: Intraprocedural examination within normal limits. Dictated by: Erich Song M.D. on 10/05/2020 at 8:19 Approved by: Erich Song M.D. on 10/05/2020 at 8:20
[2020-10-05] MEDS: fentaNYL 100 MCG/2 ML INJ 50 MCG IV ×2 (08:33)
[2020-10-05] MEDS: MIDAZOLAM 5 MG/5 ML VIAL IV ×2 (08:33)
[2020-10-05] MEDS: LIDOCAINE 1% 20 ML INJ (08:38)
[2020-10-05] MEDS: BUPIVACAINE 0.5% (PF) VIAL 5 ML INJ (08:38)
--- NOTE | 2020-10-05 08:54 | P.PCN_ITS ---
Date/Time/Diagnoses Date of procedure: 10/05/20 Time of procedure: 08:54 Pre-procedure diagnosis: 1. RECALCITRANT FACET ARTHROPATHY Post-procedure diagnosis: same Procedure Notes Procedure: 1. BILATERAL L4 AND L5 MEDIAL BRANCH RADIOFREQUENCY NEUROTOMY AND S1 DORSAL RAMUS BRANCH RADIOFREQUENCY NEUROTOMY Indications: Sandra is referred by Dr. Geronimo for treatment of facet arthropathy. Physician: Adrian Fowler Total Fluoroscopy time (seconds): 19 Total sedation minutes: 38 Complications: none Procedure in detail & Post-procedure care: DESCRIPTION OF PROCEDURE Bilateral L4 and L5 medial branch radiofrequency neurotomy and bilateral S1 dorsal ramus radiofrequency neurotomy under fluoroscopy with conscious sedation. The patient is well known to this clinic having undergone previous facet injections with good but temporary relief. The patient has experienced appropriate, concordant relief with previous facet and median branch blocks but the patient's pain has been recalcitrant to further conservative measures. Therefore, based upon the patient's relief and persistent symptoms, the patient is considered an appropriate candidate for facet rhizotomy. All of the patient's questions regarding the risks versus benefits of the procedure, including, but not limited to, bleeding, infection, temporary as well as lasting nerve injury, paralysis, stroke, and , as well treatment alternatives were answered to satisfaction. After obtaining informed consent, denial of pertinent drug allergies, as well as being made aware of the potential risks of bleeding, infection, spinal cord trauma, paralysis, temporary and permanent nerve damage, seizure, stroke, and possible , the patient was brought to the fluoroscopy suite and positioned prone on the fluoroscopy table. The lumbar region was prepped with Betadine and covered with a fenestrated drape in the usual sterile fashion. Appropriate monitors applied including pulse oximeter, pulse, and blood pressure for regular monitoring throughout the procedure. After review of previous anaesthesic history and IV conscious sedation the patient was deemed safe to proceed with today's procedure with IV conscious sedation as ASA class II designation. Safety time-out was performed to confirm patient ID, procedure to be performed and site of procedure. IV sedation was accomplished with a combination of 7mg of Versed and 100mcg of Fentanyl administered by the RN after DO order, titrated to patient comfort during the course of the procedure while the patient remained responsive to all verbal commands. After local infiltration using 1% lidocaine, under fluoroscopic guidance, a 10- cm RF insulated needle with a 10-mm active tip was positioned parallel to the junction of the right sacral ala and the superior articulating process where the S1 dorsal ramus resides. Needle placement was confirmed with motor stimulation of .5v on the right which produced local stimulation without radicular component. The stimulation was then increased to 2v with, once again, only local multifidus stimulation without radicular component. The needle was then removed and the identical procedure was performed along the length of the right L5 medial branch with motor stimulation at .7v on the right. The identical procedure was once again performed along the length of the right L4 medial branch with motor stimulation of .5v on the right. The medial branches were then anesthetised with 0.5% Marcaine. This was then followed by two discreet lesions performed at 80 degrees Celsius for 90 seconds each. The identical procedure was repeated on the left. The patient tolerated the procedure well without signs or symptoms of complications prior to transfer to the recovery area continued monitoring without incident. The patient was then transferred to the recovery area where they were observed for an appropriate period of time after the injection. The patient reported a VAS score of 9 prior to the procedure and a post-procedure VAS of 1. POST OP INSTRUCTIONS The patient was provided a Pain Log to continue to record the patient's response to the target-specific procedure prior to the patient's follow-up visit with the referring physician. Additionally, specific post-injection care instructions and a contact number to our office were provided if concerns arise regarding possible complications associated with the procedure are suspected.
== END 2020-10-05 09:20 | disposition home or self-care (01) ==
LOC: RAD 07:15
PROVIDERS: PCP Student in an Organized Health Care Education/Training Program; Referring Provider Student in an Organized Health Care Education/Training Program; Visit Provider Physical Medicine & Rehabilitation
DX: M47.817 Spondylosis without myelopathy or radiculopathy, lumbosacral region (principal); M47.816 Spondylosis without myelopathy or radiculopathy, lumbar region
CPT/HCPCS: 64635; 64636; 99152; 99153; J2250; J3010

== ENCOUNTER → 2020-11-24 11:43 | Outpatient (CLI) | payer OTHER, SELFPAY ==
--- NOTE | 2020-11-24 11:45 | DI.RAD.S_ITS ---
PROCEDURE: XR FOOT LT MIN 3V INDICATIONS: Left foot pain and swelling TECHNIQUE: 3 views of the foot were acquired. COMPARISON: [facility], CR, XR ANKLE LT MIN 3V, 11/24/2020, 11:43. [facility], CR, XR FOOT LT 2V, 07/11/2018, 11:31. FINDINGS: Bones: There is unusual superior contour of the anterior process of calcaneus, which is similar on the comparison x-ray dated 07/11/2018. No dislocation. No suspicious bony lesions. Mild degenerative joint disease Soft tissues: Small tibiotalar joint effusion. Achilles tendon appears normal. Soft tissue swelling. Dorsal soft tissue swelling. IMPRESSION: 1. There is unusual superior contour of the anterior process of calcaneus, similar when compared to 07/11/2018. Please correlate with focal pain and tenderness. If clinically suspicion for acute injury is high, CT may be helpful. 2. Small tibiotalar joint effusion and dorsal soft tissue swelling. Dictated by: Alfredito Ramirez M.D. on 11/24/2020 at 12:32 Approved by: Alfredito Ramirez M.D. on 11/24/2020 at 12:44
--- NOTE | 2020-11-24 11:45 | DI.RAD.S_ITS ---
PROCEDURE: XR ANKLE LT MIN 3V INDICATIONS: pain and swelling of left ankle TECHNIQUE: 3 views of the ankle were acquired. COMPARISON: [facility], CR, XR FOOT LT MIN 3V, 11/24/2020, 11:43. FINDINGS: Bones: No fractures or dislocations. Ankle mortise is normally aligned. No suspicious bony lesions. Soft tissues: Small tibiotalar joint effusion. Achilles tendon appears normal. Soft tissue swelling around the ankle. IMPRESSION: No fracture or dislocation. Small tibiotalar joint effusion and soft tissue swelling. If clinical symptoms persist or clinical suspicion for internal derangement is high, MRI is suggested for further evaluation. Dictated by: Alfredito Ramirez M.D. on 11/24/2020 at 12:29 Approved by: Alfredito Ramirez M.D. on 11/24/2020 at 12:31
== END ==
PROVIDERS: PCP Student in an Organized Health Care Education/Training Program; Referring Provider Physician Assistant; Visit Provider Physician Assistant
DX: M25.572 Pain in left ankle and joints of left foot (principal); M79.672 Pain in left foot; M79.89 Other specified soft tissue disorders
CPT/HCPCS: 73610; 73630

== ENCOUNTER 2020-11-29 15:15 | Outpatient (RCR) | payer OTHER, SELFPAY ==
--- NOTE | 2020-09-06 18:07 | PT.OIE ---
Current Diagnoses Patellofemoral disorders, left knee (09/06/20) Synovial cyst of popliteal space [Cohen], left knee (09/06/20) Difficulty in walking, not elsewhere classified (09/06/20) Abnormal posture (09/06/20) Weakness (09/06/20) Past Medical History (Last Reviewed 08/18/20 @ 14:59 by Adrian Fowler DO) Anxiety Calf pain (~2014) Calf swelling Chronic back pain COVID-19 Endometriosis Facet arthropathy, lumbosacral Fibroids (~1992) GERD (gastroesophageal reflux disease) (~1999) Heavy menstrual period (~1982) History of bipolar disorder Hot flashes (~2014) Left knee pain Lumbosacral spondylosis with radiculopathy Ovarian cyst Painful menstrual periods Sacral dysfunction Past Surgical History (Last Reviewed 08/18/20 @ 14:59 by Adrian Fowler DO) Anesthesia History of back surgery (~2005) History of cholecystectomy History of hysterectomy (~1997) History of laparoscopy History of oophorectomy (~2014) Visit Care Team Role Provider Type Augie Geronimo MD Primary Care Provider Physician Specialty: Internal Medicine Address: [address] [place] [address], [address], [place], [facility] Email: [email or web address] Attending Provider Referring Provider Specialty: Address: Phone: Fax: Email: Physical Therapy Initial Evaluation PT-OP-A Visit Information Start: 09/02/20 18:37 Freq: Status: Active Protocol: Document 09/06/20 13:00 [facility] (Rec: 09/06/20 13:49 [facility] [id number]) Out-Patient Physical Therapy Visit Information Visit Information Visit Type Initial Evaluation Visit Start Time 13:02 Visit Stop Time 13:45 Total Visit Minutes 43 Visit Number 1 Number of LINE AND FRAME POLER Visits 0 PT-OP-B Current Condition Start: 09/02/20 18:37 Freq: Status: Active Protocol: Document 09/06/20 13:00 [facility] (Rec: 09/06/20 13:49 [facility] [id number]) Current Condition History of Current Condition Onset Date 3 years ago w/reoccurance 6 weeks ago Current Complaints L knee pain History of Current Condition Pt reports in 2017, she bent down and heard a pop. It didn' t hurt at the time but the next day it was black and blue . She didn't have insurance at the time so wasn't treated but it got better in a few months. Pt cannot think of what she did, but she woke up about 6 weeks ago and it was slightly swollen, so she took it easy. Swelling went all the way into calf and US was neg for DVT. Pt has been wearing a brace that has a lateral stabilizer that helps. Pt wears that all the time now. Pt reports since past 6 weeks it is slightly better but is just stuck at this stage. Pt reports is avoiding heavier chores that require getting down to knees like washing bathtub. Pt walks and hikes with her dog daily and after work 3/4 mile and sometimes 5 miles w/significant elevation gain on the weekends. Prior Treatments and Tests MRI IMPRESSION: 1. No internal derangement. 2. Knee joint effusion and trace Cohen's cyst. 3. Mild patellar tendinitis. 4. Mild lateral patellar subluxation. 5. Mild medial and patellofemoral compartment articular cartilage loss. Treatment Goals Patient/Caregiver Goals be able to get down to knees to do cleaning things, be able to walk and hike w/dog like normal w/o pain Personal Factors Other Personal Factors That May Effect back pain- does mult Therapy/Recovery treatments PT-OP-C Subjective Start: 09/02/20 18:37 Freq: Status: Active Protocol: Document 09/06/20 13:00 [facility] (Rec: 09/06/20 13:49 [facility] [id number]) Patient Questionnaires Lower Extremity Functional Scale LEFS Score 43 LEFS Impairment 40 to 59% Impaired (Score 32- 47) OP-PT Pain Assessment Location L knee Pain Location Details most pain Med knee & thigh & lat thigh & goes down into ant knee Intensity 7 Scale Used Numeric (0 - 10) Description Aching,Tightness,With Movement Frequency Intermittent Pain Aggravating Factors Activity,Standing,Walking, Stair Climbing,Bending Other Pain Aggravating Factors avoids squats Pain Alleviating Factors Cold,Inactivity,Elevation PT-OP-D Balance Start: 09/02/20 18:37 Freq: Status: Active Protocol: Document 09/06/20 13:00 [facility] (Rec: 09/06/20 13:49 [facility] [id number]) Balance Tests Single Limb Standing Single Limb- Right >30 sec w/lat shear R w/slight hip drop Single Limb- Left >30 sec w/ lat shear L w/ slight hip drop PT-OP-F Manual Assessment Start: 09/02/20 18:37 Freq: Status: Active Protocol: Document 09/06/20 13:00 [facility] (Rec: 09/06/20 13:49 [facility] [id number]) Manual Assessments Soft Tissue Assessment Soft Tissue Mobility Assessment tightness/tendernss L ITB, quad, HS, adductors, patellar tendon, lat calf Joint Mobility Assessment Joint Mobility Assessment ER of tibia B, IR of femur B PT-OP-G Mobility & Gait Start: 09/02/20 18:37 Freq: Status: Active Protocol: Document 09/06/20 13:00 [facility] (Rec: 09/06/20 13:49 [facility] [id number]) OP Gait Assessment Comments Gait Comments ER of pelvis > on L PT-OP-J Posture/Palpation/Skin Start: 09/02/20 18:37 Freq: Status: Active Protocol: Document 09/06/20 13:00 [facility] (Rec: 09/06/20 13:49 [facility] [id number]) Posture Evaluation [facility] Postural Classification System Lumbar Protective Mechanism Left AP 0 Lumbar Protective Mechanism Right AP 0 Lumbar Protective Mechanism Left PA 0 Lumbar Protective Mechanism Right PA 3 PT-OP-K Range of Motion Start: 09/02/20 18:37 Freq: Status: Active Protocol: Document 09/06/20 13:00 [facility] (Rec: 09/06/20 13:49 [facility] [id number]) Knee Goniometric Range of Motion Knee Right Flexion Active (degrees) 125 Extension Active (degrees) 0 Left Flexion Active (degrees) 108 Extension Active (degrees) 10 Comments pain both directions PT-OP-L Special Tests Start: 09/02/20 18:37 Freq: Status: Active Protocol: Document 09/06/20 13:00 [facility] (Rec: 09/06/20 13:49 [facility] [id number]) Special Tests Knee Special Tests Gurdeep Test Results L>R hip flexor tightness and L quad tightness Carlos Alberto's Test Test Results L positive R Straight Leg Raise Test Results L 74 R:100 PT-OP-M Strength Start: 09/02/20 18:37 Freq: Status: Active Protocol: Document 09/06/20 13:00 [facility] (Rec: 09/06/20 13:49 [facility] [id number]) Hip Strength Hip Manual Muscle Testing Right Flexion (L2) 4- Good- Extension (S1) 4- Good- Abduction 4 Good Adduction 5 Normal External Rotation 4+ Good+ Internal Rotation 4 Good Left Flexion (L2) 4- Good- Extension (S1) 4- Good- Abduction 4- Good- Adduction 4 Good External Rotation 3+ Fair+ Internal Rotation 3+ Fair+ Knee Strength Knee Manual Muscle Testing Right Flexion (S2) 5 Normal Extension (L3) 5 Normal Left Flexion (S2) 4+ Good+ Extension (L3) 4 Good Comments pain w/knee ext Ankle/Foot Strength Ankle and Foot Manual Muscle Testing Right Dorsiflexion (L4) 5 Normal Plantarflexion (S1) 5 Normal Comments 20 heel raises Left Dorsiflexion (L4) 5 Normal Plantarflexion (S1) 4 Good Comments stopped at 14 d/t pain behind knee PT-OP-Q Treatments Start: 09/02/20 18:37 Freq: Status: Active Protocol: Document 09/06/20 13:00 [facility] (Rec: 09/06/20 17:57 [facility] [id number]) Self-Care/Home Management Treatment Education Other Education edu re: importance of posture & glute strength for knees and back and importance of core stability, edu re: using compression at home to help dec swelling & how to use rolling pin to help roll out mm of thigh & calf PT-OP-T Assessment and Plan Start: 09/02/20 18:37 Freq: Status: Active Protocol: Document 09/06/20 13:00 [facility] (Rec: 09/06/20 13:49 [facility] [id number]) Physical Therapy Assessment Rehab Potential Rehabilitation Potential Good Evaluation Complexity Number of Personal Factors/Comorbidities 3 or More Number of Body Systems Impaired 4 or More Clinical Presentation at Evaluation Evolving Impairments Impairments Activity Tolerance,Balance, Functional Activities, Functional Mobility,Gait,Pain, Posture,ROM,Soft Tissue Mobility,Strength,Transfers Goals activities Usp Goal (LTG) Pt will be able to get up/down from ground and get onto knees without inc pain. LTG Duration 11/06/20 ROM Short Term Goal (STG) Pt will have 4-120 deg ROM. STG Duration 10/07/20 Precision Devices Inspector/Tester Goal (LTG) Pt will have full knee ROM and be able to go up/down stairs without inc pain. LTG Duration 11/06/20 gait Short Term Goal (STG) pt will show improved push off for gait mechancis & improved glute activiation to dec rotational force on knees and lumbar spine. STG Duration 10/07/20 Precision Devices Inspector/Tester Goal (LTG) Pt will be able to go on steep hikes and walks of any distances w/o inc pain. LTG Duration 11/06/20 weakness Short Term Goal (STG) Pt will be indep w/HEP STG Duration 10/07/20 Precision Devices Inspector/Tester Goal (LTG) Pt will improve LE strength to at 5/5 in all planes and 3/5 for LPM in all planes w/o pain in order to allow for improved stability to inc ability to do typical activities. LTG Duration 11/06/20 LEFS Impairment 43/80 Short Term Goal (STG) Pt will improve score of LEFS to at least 53/80 to show improved functional ability. STG Duration 10/07/20 Precision Devices Inspector/Tester Goal (LTG) Pt will improve score of LEFS to at least 65/80 to show improved functional ability. LTG Duration 11/06/20 Assessment Summary Assessment Pt presents with insidious onset of L knee pain w/history of knee injury 4 years ago, but recovering to the point where knee did not bother her further until reoccurance 6 weeks ago. Pt does have chronic lumbosacral pain that was flared up prior this and demonstrated very poor core reactions today, which may have contributed to pain onset of L knee. She had a MRI that did show edema, a bakers cyst , mild OA, and mild lat subluxation of patella. She has impaired balance, impaired gait mechancis, dec LE and core strength and dec L knee ROM and would beneift from skilled PT to address these deficits. Physical Therapy Plan Frequency and Duration Frequency of Treatment 2x/Week Duration of Treatment 2 months Plan of Care Start Date 09/06/20 Plan of Care End Date 11/06/20 Therapeutic Interventions Therapeutic Interventions Aquatic Therapy,Balance Training,Gait Training,Home Exercise Program,Joint Mobilizations,Manual Therapy, Neuromuscular Re-education, Patient/Caregiver Education, Self-Care/Home Management,Soft Tissue Mobilization,Taping, Therapeutic Activities, Therapeutic Exercises Modalities Cold Pack/Ice Massage,Electric Stimulation,Hot Packs, Infrared Therapy,Iontophoresis ,Ultrasound Next Visit Focus/Plan Next Note Type Treatment Note Next Visit Plan isometric core stability, s/l hip abd, prone hip ext, L HS stretch active, manual treatment to knee to help imrpoved ext & flex
--- NOTE | 2020-09-06 18:07 | PT.OPPOC ---
Physical, Occupational & Speech Therapy At [facility] Current Diagnoses Patellofemoral disorders, left knee (09/06/20) Synovial cyst of popliteal space [Coehn], left knee (09/06/20) Difficulty in walking, not elsewhere classified (09/06/20) Abnormal posture (09/06/20) Weakness (09/06/20) Visit Care Team Role Provider Type Augie Geronimo MD Primary Care Provider Physician Specialty: Internal Medicine Address: [address] [place] [address], [address], [facility] Email: [email or web address] Attending Provider Referring Provider Specialty: Address: Phone: Fax: Email: Plan Of Care PT-OP-T Assessment and Plan Start: 09/02/20 18:37 Freq: Status: Active Protocol: Document 09/06/20 13:00 [facility] (Rec: 09/06/20 13:49 [facility] [id number]) Physical Therapy Assessment Rehab Potential Rehabilitation Potential Good Evaluation Complexity Number of Personal Factors/Comorbidities 3 or More Number of Body Systems Impaired 4 or More Clinical Presentation at Evaluation Evolving Impairments Impairments Activity Tolerance,Balance, Functional Activities, Functional Mobility,Gait,Pain, Posture,ROM,Soft Tissue Mobility,Strength,Transfers Goals activities Director Learning And Development Goal (LTG) Pt will be able to get up/down from ground and get onto knees without inc pain. LTG Duration 11/06/20 ROM Short Term Goal (STG) Pt will have 4-120 deg ROM. STG Duration 10/07/20 Director Learning And Development Goal (LTG) Pt will have full knee ROM and be able to go up/down stairs without inc pain. LTG Duration 11/06/20 gait Short Term Goal (STG) pt will show improved push off for gait mechancis & improved glute activiation to dec rotational force on knees and lumbar spine. STG Duration 10/07/20 Director Learning And Development Goal (LTG) Pt will be able to go on steep hikes and walks of any distances w/o inc pain. LTG Duration 11/06/20 weakness Short Term Goal (STG) Pt will be indep w/HEP STG Duration 10/07/20 Director Learning And Development Goal (LTG) Pt will improve LE strength to at 5/5 in all planes and 3/5 for LPM in all planes w/o pain in order to allow for improved stability to inc ability to do typical activities. LTG Duration 11/06/20 LEFS Impairment 43/80 Short Term Goal (STG) Pt will improve score of LEFS to at least 53/80 to show improved functional ability. STG Duration 10/07/20 Prison Goal (LTG) Pt will improve score of LEFS to at least 65/80 to show improved functional ability. LTG Duration 11/06/20 Assessment Summary Assessment Pt presents with insidious onset of L knee pain w/history of knee injury 4 years ago, but recovering to the point where knee did not bother her further until reoccurance 6 weeks ago. Pt does have chronic lumbosacral pain that was flared up prior this and demonstrated very poor core reactions today, which may have contributed to pain onset of L knee. She had a MRI that did show edema, a bakers cyst , mild OA, and mild lat subluxation of patella. She has impaired balance, impaired gait mechancis, dec LE and core strength and dec L knee ROM and would beneift from skilled PT to address these deficits. Physical Therapy Plan Frequency and Duration Frequency of Treatment 2x/Week Duration of Treatment 2 months Plan of Care Start Date 09/06/20 Plan of Care End Date 11/06/20 Therapeutic Interventions Therapeutic Interventions Aquatic Therapy,Balance Training,Gait Training,Home Exercise Program,Joint Mobilizations,Manual Therapy, Neuromuscular Re-education, Patient/Caregiver Education, Self-Care/Home Management,Soft Tissue Mobilization,Taping, Therapeutic Activities, Therapeutic Exercises Modalities Cold Pack/Ice Massage,Electric Stimulation,Hot Packs, Infrared Therapy,Iontophoresis ,Ultrasound Next Visit Focus/Plan Next Note Type Treatment Note Next Visit Plan isometric core stability, s/l hip abd, prone hip ext, L HS stretch active, manual treatment to knee to help imrpoved ext & flex Plan of Care Dates Plan of Care Start Date 09/06/20 Plan of Care End Date 11/06/20 Electronically Signed by: Joanna Melton, PT 09/06/20 [id number] Please Sign and Return: I have reviewed this Plan of Care and certify that the skilled therapy services above are required to meet the patient?s needs. Physician Signature Date Printed Name and Credentials Clinical Instructor Signature Printed Name and Credentials
--- NOTE | 2020-09-07 17:36 | PT.OTN ---
Current Diagnoses Patellofemoral disorders, left knee (09/07/20) Synovial cyst of popliteal space [Cohen], left knee (09/07/20) Difficulty in walking, not elsewhere classified (09/07/20) Abnormal posture (09/07/20) Weakness (09/07/20) Physical Therapy Treatment Note PT-OP-A Visit Information Start: 09/02/20 18:37 Freq: Status: Active Protocol: Document 09/07/20 15:17 [facility] (Rec: 09/07/20 17:35 [facility] [id number]) Out-Patient Physical Therapy Visit Information Visit Information Visit Type Treatment Note Visit Start Time 15:19 Visit Stop Time 16:03 Total Visit Minutes 44 Visit Number 2 Number of DISPENSING LEAD Visits 0 PT-OP-B Current Condition Start: 09/02/20 18:37 Freq: Status: Active Protocol: Document 09/06/20 13:00 [facility] (Rec: 09/06/20 13:49 [facility] [id number]) Current Condition History of Current Condition Onset Date 3 years ago w/reoccurance 6 weeks ago Current Complaints L knee pain History of Current Condition Pt reports in 2017, she bent down and heard a pop. It didn' t hurt at the time but the next day it was black and blue . She didn't have insurance at the time so wasn't treated but it got better in a few months. Pt cannot think of what she did, but she woke up about 6 weeks ago and it was slightly swollen, so she took it easy. Swelling went all the way into calf and US was neg for DVT. Pt has been wearing a brace that has a lateral stabilizer that helps. Pt wears that all the time now. Pt reports since past 6 weeks it is slightly better but is just stuck at this stage. Pt reports is avoiding heavier chores that require getting down to knees like washing bathtub. Pt walks and hikes with her dog daily and after work 3/4 mile and sometimes 5 miles w/significant elevation gain on the weekends. Prior Treatments and Tests MRI IMPRESSION: 1. No internal derangement. 2. Knee joint effusion and trace Cohen's cyst. 3. Mild patellar tendinitis. 4. Mild lateral patellar subluxation. 5. Mild medial and patellofemoral compartment articular cartilage loss. Treatment Goals Patient/Caregiver Goals be able to get down to knees to do cleaning things, be able to walk and hike w/dog like normal w/o pain Personal Factors Other Personal Factors That May Effect back pain- does mult Therapy/Recovery treatments PT-OP-C Subjective Start: 09/02/20 18:37 Freq: Status: Active Protocol: Document 09/07/20 15:17 [facility] (Rec: 09/07/20 17:35 [facility] [id number]) OP-PT Subjective Patient Comments Patient Comments Has not had enought time to get compression stocking PT-OP-D Balance Start: 09/02/20 18:37 Freq: Status: Active Protocol: Document 09/06/20 13:00 [facility] (Rec: 09/06/20 13:49 [facility] [id number]) Balance Tests Single Limb Standing Single Limb- Right >30 sec w/lat shear R w/slight hip drop Single Limb- Left >30 sec w/ lat shear L w/ slight hip drop PT-OP-F Manual Assessment Start: 09/02/20 18:37 Freq: Status: Active Protocol: Document 09/06/20 13:00 [facility] (Rec: 09/06/20 13:49 [facility] [id number]) Manual Assessments Soft Tissue Assessment Soft Tissue Mobility Assessment tightness/tendernss L ITB, quad, HS, adductors, patellar tendon, lat calf Joint Mobility Assessment Joint Mobility Assessment ER of tibia B, IR of femur B PT-OP-G Mobility & Gait Start: 09/02/20 18:37 Freq: Status: Active Protocol: Document 09/06/20 13:00 [facility] (Rec: 09/06/20 13:49 [facility] [id number]) OP Gait Assessment Comments Gait Comments ER of pelvis > on L PT-OP-J Posture/Palpation/Skin Start: 09/02/20 18:37 Freq: Status: Active Protocol: Document 09/06/20 13:00 [facility] (Rec: 09/06/20 13:49 [facility] [id number]) Posture Evaluation Shauna Postural Classification System Lumbar Protective Mechanism Left AP 0 Lumbar Protective Mechanism Right AP 0 Lumbar Protective Mechanism Left PA 0 Lumbar Protective Mechanism Right PA 3 PT-OP-K Range of Motion Start: 09/02/20 18:37 Freq: Status: Active Protocol: Document 09/06/20 13:00 [facility] (Rec: 09/06/20 13:49 [facility] [id number]) Knee Goniometric Range of Motion Knee Right Flexion Active (degrees) 125 Extension Active (degrees) 0 Left Flexion Active (degrees) 108 Extension Active (degrees) 10 Comments pain both directions PT-OP-L Special Tests Start: 09/02/20 18:37 Freq: Status: Active Protocol: Document 09/06/20 13:00 [facility] (Rec: 09/06/20 13:49 [facility] [id number]) Special Tests Knee Special Tests Gurdeep Test Results L>R hip flexor tightness and L quad tightness Carlos Alberto's Test Test Results L positive R Straight Leg Raise Test Results L 74 R:100 PT-OP-M Strength Start: 09/02/20 18:37 Freq: Status: Active Protocol: Document 09/06/20 13:00 [facility] (Rec: 09/06/20 13:49 [facility] [id number]) Hip Strength Hip Manual Muscle Testing Right Flexion (L2) 4- Good- Extension (S1) 4- Good- Abduction 4 Good Adduction 5 Normal External Rotation 4+ Good+ Internal Rotation 4 Good Left Flexion (L2) 4- Good- Extension (S1) 4- Good- Abduction 4- Good- Adduction 4 Good External Rotation 3+ Fair+ Internal Rotation 3+ Fair+ Knee Strength Knee Manual Muscle Testing Right Flexion (S2) 5 Normal Extension (L3) 5 Normal Left Flexion (S2) 4+ Good+ Extension (L3) 4 Good Comments pain w/knee ext Ankle/Foot Strength Ankle and Foot Manual Muscle Testing Right Dorsiflexion (L4) 5 Normal Plantarflexion (S1) 5 Normal Comments 20 heel raises Left Dorsiflexion (L4) 5 Normal Plantarflexion (S1) 4 Good Comments stopped at 14 d/t pain behind knee PT-OP-Q Treatments Start: 09/02/20 18:37 Freq: Status: Active Protocol: Document 09/07/20 15:17 [facility] (Rec: 09/07/20 17:35 [facility] [id number]) Therapeutic Exercises Supine Exercises HS Supine Exercise Name active w/DF Side bilateral Reps/Minutes 10 isometric Supine Exercise Name core activation B flex Side bilateral Reps/Minutes 30 sec x2 flex Supine Exercise Name 1. SLR L 2. alt march Side bilateral Reps/Minutes 12 ea Prone Exercises hip ext Side bilateral Reps/Minutes 10 Comments alt Sidelying Exercises hip abd Side bilateral Reps/Minutes 15 Manual Therapy Treatment Soft Tissue Mobilization quads Body Location 1. patellar tendon 2. quads Mobilization Type Rolling,Strumming Intensity/Depth Moderate Body Position Supine HS Body Location L w/knee ext Mobilization Type Rolling Intensity/Depth Moderate Body Position Supine Taping kt Body Location 2 fiver finger strips for swelling ant knee Type of Tape Kinesio Tape PT-OP-T Assessment and Plan Start: 09/02/20 18:37 Freq: Status: Active Protocol: Document 09/07/20 15:17 [facility] (Rec: 09/07/20 17:35 [facility] [id number]) Physical Therapy Assessment Goals activities Office Services Assistant Goal (LTG) Pt will be able to get up/down from ground and get onto knees without inc pain. LTG Duration 11/06/20 ROM Short Term Goal (STG) Pt will have 4-120 deg ROM. STG Duration 10/07/20 Prison Goal (LTG) Pt will have full knee ROM and be able to go up/down stairs without inc pain. LTG Duration 11/06/20 gait Short Term Goal (STG) pt will show improved push off for gait mechancis & improved glute activiation to dec rotational force on knees and lumbar spine. STG Duration 10/07/20 Office Services Assistant Goal (LTG) Pt will be able to go on steep hikes and walks of any distances w/o inc pain. LTG Duration 11/06/20 weakness Short Term Goal (STG) Pt will be indep w/HEP STG Duration 10/07/20 Office Services Assistant Goal (LTG) Pt will improve LE strength to at 5/5 in all planes and 3/5 for LPM in all planes w/o pain in order to allow for improved stability to inc ability to do typical activities. LTG Duration 11/06/20 LEFS Impairment 43/80 Short Term Goal (STG) Pt will improve score of LEFS to at least 53/80 to show improved functional ability. STG Duration 10/07/20 Prison Goal (LTG) Pt will improve score of LEFS to at least 65/80 to show improved functional ability. LTG Duration 11/06/20 Assessment Summary Assessment Pt has significant mm tightness in HS and quads which likely affects her knee pain. She had difficultyw ith core exercises but was able to do all without pain except SLR, she had pain in knee so stopped and started with marches for today. Physical Therapy Plan Frequency and Duration Frequency of Treatment 2x/Week Duration of Treatment 2 months Plan of Care Start Date 09/06/20 Plan of Care End Date 11/06/20 Next Visit Focus/Plan Next Note Type Treatment Note Next Visit Plan review HEP, cont manual to imrpove ROM
--- NOTE | 2020-09-23 12:10 | PT.OTN ---
Current Diagnoses Patellofemoral disorders, left knee (09/23/20) Synovial cyst of popliteal space [Cohen], left knee (09/23/20) Difficulty in walking, not elsewhere classified (09/23/20) Abnormal posture (09/23/20) Weakness (09/23/20) Physical Therapy Treatment Note PT-OP-A Visit Information Start: 09/02/20 18:37 Freq: Status: Active Protocol: Document 09/23/20 11:13 [facility] (Rec: 09/23/20 12:09 [facility] [id number]) Out-Patient Physical Therapy Visit Information Visit Information Visit Type Treatment Note Visit Start Time 11:15 Visit Stop Time 12:13 Total Visit Minutes 58 Visit Number 3 Number of NETWORK CONSULTANT Visits 0 PT-OP-B Current Condition Start: 09/02/20 18:37 Freq: Status: Active Protocol: Document 09/06/20 13:00 [facility] (Rec: 09/06/20 13:49 [facility] [id number]) Current Condition History of Current Condition Onset Date 3 years ago w/reoccurance 6 weeks ago Current Complaints L knee pain History of Current Condition Pt reports in 2017, she bent down and heard a pop. It didn' t hurt at the time but the next day it was black and blue . She didn't have insurance at the time so wasn't treated but it got better in a few months. Pt cannot think of what she did, but she woke up about 6 weeks ago and it was slightly swollen, so she took it easy. Swelling went all the way into calf and US was neg for DVT. Pt has been wearing a brace that has a lateral stabilizer that helps. Pt wears that all the time now. Pt reports since past 6 weeks it is slightly better but is just stuck at this stage. Pt reports is avoiding heavier chores that require getting down to knees like washing bathtub. Pt walks and hikes with her dog daily and after work 3/4 mile and sometimes 5 miles w/significant elevation gain on the weekends. Prior Treatments and Tests MRI IMPRESSION: 1. No internal derangement. 2. Knee joint effusion and trace Cohen's cyst. 3. Mild patellar tendinitis. 4. Mild lateral patellar subluxation. 5. Mild medial and patellofemoral compartment articular cartilage loss. Treatment Goals Patient/Caregiver Goals be able to get down to knees to do cleaning things, be able to walk and hike w/dog like normal w/o pain Personal Factors Other Personal Factors That May Effect back pain- does mult Therapy/Recovery treatments PT-OP-C Subjective Start: 09/02/20 18:37 Freq: Status: Active Protocol: Document 09/23/20 11:13 [facility] (Rec: 09/23/20 12:09 [facility] [id number]) OP-PT Subjective Patient Comments Patient Reported Progress Improving PT-OP-D Balance Start: 09/02/20 18:37 Freq: Status: Active Protocol: Document 09/06/20 13:00 [facility] (Rec: 09/06/20 13:49 [facility] [id number]) Balance Tests Single Limb Standing Single Limb- Right >30 sec w/lat shear R w/slight hip drop Single Limb- Left >30 sec w/ lat shear L w/ slight hip drop PT-OP-F Manual Assessment Start: 09/02/20 18:37 Freq: Status: Active Protocol: Document 09/06/20 13:00 [facility] (Rec: 09/06/20 13:49 [facility] [id number]) Manual Assessments Soft Tissue Assessment Soft Tissue Mobility Assessment tightness/tendernss L ITB, quad, HS, adductors, patellar tendon, lat calf Joint Mobility Assessment Joint Mobility Assessment ER of tibia B, IR of femur B PT-OP-G Mobility & Gait Start: 09/02/20 18:37 Freq: Status: Active Protocol: Document 09/06/20 13:00 [facility] (Rec: 09/06/20 13:49 [facility] [id number]) OP Gait Assessment Comments Gait Comments ER of pelvis > on L PT-OP-J Posture/Palpation/Skin Start: 09/02/20 18:37 Freq: Status: Active Protocol: Document 09/06/20 13:00 [facility] (Rec: 09/06/20 13:49 [facility] [id number]) Posture Evaluation Shauna Postural Classification System Lumbar Protective Mechanism Left AP 0 Lumbar Protective Mechanism Right AP 0 Lumbar Protective Mechanism Left PA 0 Lumbar Protective Mechanism Right PA 3 PT-OP-K Range of Motion Start: 09/02/20 18:37 Freq: Status: Active Protocol: Document 09/06/20 13:00 [facility] (Rec: 09/06/20 13:49 [facility] [id number]) Knee Goniometric Range of Motion Knee Right Flexion Active (degrees) 125 Extension Active (degrees) 0 Left Flexion Active (degrees) 108 Extension Active (degrees) 10 Comments pain both directions PT-OP-L Special Tests Start: 09/02/20 18:37 Freq: Status: Active Protocol: Document 09/06/20 13:00 [facility] (Rec: 09/06/20 13:49 [facility] [id number]) Special Tests Knee Special Tests Gurdeep Test Results L>R hip flexor tightness and L quad tightness Carlos Alberto's Test Test Results L positive R Straight Leg Raise Test Results L 74 R:100 PT-OP-M Strength Start: 09/02/20 18:37 Freq: Status: Active Protocol: Document 09/06/20 13:00 [facility] (Rec: 09/06/20 13:49 [facility] [id number]) Hip Strength Hip Manual Muscle Testing Right Flexion (L2) 4- Good- Extension (S1) 4- Good- Abduction 4 Good Adduction 5 Normal External Rotation 4+ Good+ Internal Rotation 4 Good Left Flexion (L2) 4- Good- Extension (S1) 4- Good- Abduction 4- Good- Adduction 4 Good External Rotation 3+ Fair+ Internal Rotation 3+ Fair+ Knee Strength Knee Manual Muscle Testing Right Flexion (S2) 5 Normal Extension (L3) 5 Normal Left Flexion (S2) 4+ Good+ Extension (L3) 4 Good Comments pain w/knee ext Ankle/Foot Strength Ankle and Foot Manual Muscle Testing Right Dorsiflexion (L4) 5 Normal Plantarflexion (S1) 5 Normal Comments 20 heel raises Left Dorsiflexion (L4) 5 Normal Plantarflexion (S1) 4 Good Comments stopped at 14 d/t pain behind knee PT-OP-Q Treatments Start: 09/02/20 18:37 Freq: Status: Active Protocol: Document 09/23/20 11:13 [facility] (Rec: 09/23/20 12:09 [facility] [id number]) Therapeutic Exercises Supine Exercises HS Supine Exercise Name active w/DF Side bilateral Reps/Minutes 10 isometric Supine Exercise Name core activation B flex Side bilateral Reps/Minutes 30 sec flex Supine Exercise Name 1. SLR L 2. alt march Side bilateral Reps/Minutes 12 ea Prone Exercises hip ext Side bilateral Reps/Minutes 10 Comments alt Sidelying Exercises hip abd Side left Reps/Minutes 15 Therapeutic Activity Therapeutic Activity posture Name seated then standing posture Manual Therapy Treatment Soft Tissue Mobilization ITB Body Location L Mobilization Type Rolling,Strumming Intensity/Depth Moderate quads Body Location L VMO Mobilization Type Rolling,Strumming Intensity/Depth Moderate Body Position Supine Comments w/quad set Joint Mobilizations patellofem Joint L Direction sup, inf, med PT-OP-R Modalities Start: 09/02/20 18:37 Freq: Status: Active Protocol: Document 09/23/20 11:13 [facility] (Rec: 09/23/20 12:10 [facility] [id number]) Hot Pack/Cold Pack Treatment Cold Pack Location L knee and quad Patient Position Hooklying Treatment Duration (minutes) 10 PT-OP-T Assessment and Plan Start: 09/02/20 18:37 Freq: Status: Active Protocol: Document 09/23/20 11:13 [facility] (Rec: 09/23/20 12:09 [facility] [id number]) Physical Therapy Assessment Goals activities Mcc Goal (LTG) Pt will be able to get up/down from ground and get onto knees without inc pain. LTG Duration 11/06/20 ROM Short Term Goal (STG) Pt will have 4-120 deg ROM. STG Duration 10/07/20 Drosser Goal (LTG) Pt will have full knee ROM and be able to go up/down stairs without inc pain. LTG Duration 11/06/20 gait Short Term Goal (STG) pt will show improved push off for gait mechancis & improved glute activiation to dec rotational force on knees and lumbar spine. STG Duration 10/07/20 Drosser Goal (LTG) Pt will be able to go on steep hikes and walks of any distances w/o inc pain. LTG Duration 11/06/20 weakness Short Term Goal (STG) Pt will be indep w/HEP STG Duration 10/07/20 Mcc Goal (LTG) Pt will improve LE strength to at 5/5 in all planes and 3/5 for LPM in all planes w/o pain in order to allow for improved stability to inc ability to do typical activities. LTG Duration 11/06/20 LEFS Impairment 43/80 Short Term Goal (STG) Pt will improve score of LEFS to at least 53/80 to show improved functional ability. STG Duration 10/07/20 Drosser Goal (LTG) Pt will improve score of LEFS to at least 65/80 to show improved functional ability. LTG Duration 11/06/20 Assessment Summary Assessment Pt required significnt cueing for posture in standing and sitting for back relaxation to improve WB into LEs and improve pressure into knee to progress towards gait next visit. Did well with exercises with some cuieng for core required jolie w/marches in supine. She had imroved ease to relax knee into ext after manual treatment Physical Therapy Plan Frequency and Duration Frequency of Treatment 2x/Week Duration of Treatment 2 months Plan of Care Start Date 09/06/20 Plan of Care End Date 11/06/20 Next Visit Focus/Plan Next Note Type Treatment Note Next Visit Plan work on gait mechanics & squatting, manual for knee pain & mobility
--- NOTE | 2020-09-29 15:34 | PT.OTN ---
Current Diagnoses Patellofemoral disorders, left knee (09/29/20) Synovial cyst of popliteal space [Cohen], left knee (09/29/20) Difficulty in walking, not elsewhere classified (09/29/20) Abnormal posture (09/29/20) Weakness (09/29/20) Physical Therapy Treatment Note PT-OP-A Visit Information Start: 09/02/20 18:37 Freq: Status: Active Protocol: Document 09/29/20 13:04 [facility] (Rec: 09/29/20 13:49 [facility] [id number]) Out-Patient Physical Therapy Visit Information Visit Information Visit Type Treatment Note Visit Start Time 10:32 Visit Stop Time 11:13 Total Visit Minutes 41 Visit Number 4 Number of DATA MIGRATION CONSULTANT Visits 0 PT-OP-B Current Condition Start: 09/02/20 18:37 Freq: Status: Active Protocol: Document 09/06/20 13:00 [facility] (Rec: 09/06/20 13:49 [facility] [id number]) Current Condition History of Current Condition Onset Date 3 years ago w/reoccurance 6 weeks ago Current Complaints L knee pain History of Current Condition Pt reports in 2017, she bent down and heard a pop. It didn' t hurt at the time but the next day it was black and blue . She didn't have insurance at the time so wasn't treated but it got better in a few months. Pt cannot think of what she did, but she woke up about 6 weeks ago and it was slightly swollen, so she took it easy. Swelling went all the way into calf and US was neg for DVT. Pt has been wearing a brace that has a lateral stabilizer that helps. Pt wears that all the time now. Pt reports since past 6 weeks it is slightly better but is just stuck at this stage. Pt reports is avoiding heavier chores that require getting down to knees like washing bathtub. Pt walks and hikes with her dog daily and after work 3/4 mile and sometimes 5 miles w/significant elevation gain on the weekends. Prior Treatments and Tests MRI IMPRESSION: 1. No internal derangement. 2. Knee joint effusion and trace Cohen's cyst. 3. Mild patellar tendinitis. 4. Mild lateral patellar subluxation. 5. Mild medial and patellofemoral compartment articular cartilage loss. Treatment Goals Patient/Caregiver Goals be able to get down to knees to do cleaning things, be able to walk and hike w/dog like normal w/o pain Personal Factors Other Personal Factors That May Effect back pain- does mult Therapy/Recovery treatments PT-OP-C Subjective Start: 09/02/20 18:37 Freq: Status: Active Protocol: Document 09/29/20 13:04 [facility] (Rec: 09/29/20 13:49 [facility] [id number]) OP-PT Subjective Patient Comments Patient Comments Pt reprots knee did okay w/ getting up/down from ground w/ work at home Patient Reported Progress Improving PT-OP-D Balance Start: 09/02/20 18:37 Freq: Status: Active Protocol: Document 09/06/20 13:00 [facility] (Rec: 09/06/20 13:49 [facility] [id number]) Balance Tests Single Limb Standing Single Limb- Right >30 sec w/lat shear R w/slight hip drop Single Limb- Left >30 sec w/ lat shear L w/ slight hip drop PT-OP-F Manual Assessment Start: 09/02/20 18:37 Freq: Status: Active Protocol: Document 09/06/20 13:00 [facility] (Rec: 09/06/20 13:49 [facility] [id number]) Manual Assessments Soft Tissue Assessment Soft Tissue Mobility Assessment tightness/tendernss L ITB, quad, HS, adductors, patellar tendon, lat calf Joint Mobility Assessment Joint Mobility Assessment ER of tibia B, IR of femur B PT-OP-G Mobility & Gait Start: 09/02/20 18:37 Freq: Status: Active Protocol: Document 09/06/20 13:00 [facility] (Rec: 09/06/20 13:49 [facility] [id number]) OP Gait Assessment Comments Gait Comments ER of pelvis > on L PT-OP-J Posture/Palpation/Skin Start: 09/02/20 18:37 Freq: Status: Active Protocol: Document 09/06/20 13:00 [facility] (Rec: 09/06/20 13:49 [facility] [id number]) Posture Evaluation [facility] Postural Classification System Lumbar Protective Mechanism Left AP 0 Lumbar Protective Mechanism Right AP 0 Lumbar Protective Mechanism Left PA 0 Lumbar Protective Mechanism Right PA 3 PT-OP-K Range of Motion Start: 09/02/20 18:37 Freq: Status: Active Protocol: Document 09/06/20 13:00 [facility] (Rec: 09/06/20 13:49 [facility] [id number]) Knee Goniometric Range of Motion Knee Right Flexion Active (degrees) 125 Extension Active (degrees) 0 Left Flexion Active (degrees) 108 Extension Active (degrees) 10 Comments pain both directions PT-OP-L Special Tests Start: 09/02/20 18:37 Freq: Status: Active Protocol: Document 09/06/20 13:00 [facility] (Rec: 09/06/20 13:49 [facility] [id number]) Special Tests Knee Special Tests Gurdeep Test Results L>R hip flexor tightness and L quad tightness Carlos Alberto's Test Test Results L positive R Straight Leg Raise Test Results L 74 R:100 PT-OP-M Strength Start: 09/02/20 18:37 Freq: Status: Active Protocol: Document 09/06/20 13:00 [facility] (Rec: 09/06/20 13:49 [facility] [id number]) Hip Strength Hip Manual Muscle Testing Right Flexion (L2) 4- Good- Extension (S1) 4- Good- Abduction 4 Good Adduction 5 Normal External Rotation 4+ Good+ Internal Rotation 4 Good Left Flexion (L2) 4- Good- Extension (S1) 4- Good- Abduction 4- Good- Adduction 4 Good External Rotation 3+ Fair+ Internal Rotation 3+ Fair+ Knee Strength Knee Manual Muscle Testing Right Flexion (S2) 5 Normal Extension (L3) 5 Normal Left Flexion (S2) 4+ Good+ Extension (L3) 4 Good Comments pain w/knee ext Ankle/Foot Strength Ankle and Foot Manual Muscle Testing Right Dorsiflexion (L4) 5 Normal Plantarflexion (S1) 5 Normal Comments 20 heel raises Left Dorsiflexion (L4) 5 Normal Plantarflexion (S1) 4 Good Comments stopped at 14 d/t pain behind knee PT-OP-Q Treatments Start: 09/02/20 18:37 Freq: Status: Active Protocol: Document 09/29/20 13:04 [facility] (Rec: 09/29/20 13:49 [facility] [id number]) Therapeutic Exercises Standing Exercises hip hinge Side bilateral Reps/Minutes 15 Comments some w/yard stick squat Standing Exercise Name focus on enutral spine & knee position Side bilateral Reps/Minutes mult reps w/max cues Therapeutic Activity Therapeutic Activity posture Name seated then standing posture Comments working on neutral alingment 2. facilition for quad and glute activation manually L 3. sit to stand facilitation and training for quad and glutes and avoid lumbar ext Manual Therapy Treatment Soft Tissue Mobilization ITB Body Location L Mobilization Type Rolling,Strumming Intensity/Depth Moderate quads Body Location L VMO Mobilization Type Rolling,Strumming Intensity/Depth Moderate Body Position Supine Comments w/quad set Joint Mobilizations patellofem Joint L Direction sup, inf, med PT-OP-R Modalities Start: 09/02/20 18:37 Freq: Status: Active Protocol: Document 09/23/20 11:13 [facility] (Rec: 09/23/20 12:10 [facility] [id number]) Hot Pack/Cold Pack Treatment Cold Pack Location L knee and quad Patient Position Hooklying Treatment Duration (minutes) 10 PT-OP-T Assessment and Plan Start: 09/02/20 18:37 Freq: Status: Active Protocol: Document 09/29/20 13:04 [facility] (Rec: 09/29/20 13:49 [facility] [id number]) Physical Therapy Assessment Goals activities [facility] Goal (LTG) Pt will be able to get up/down from ground and get onto knees without inc pain. LTG Duration 11/06/20 ROM Short Term Goal (STG) Pt will have 4-120 deg ROM. STG Duration 10/07/20 [facility] Goal (LTG) Pt will have full knee ROM and be able to go up/down stairs without inc pain. LTG Duration 11/06/20 gait Short Term Goal (STG) pt will show improved push off for gait mechancis & improved glute activiation to dec rotational force on knees and lumbar spine. STG Duration 10/07/20 [facility] Goal (LTG) Pt will be able to go on steep hikes and walks of any distances w/o inc pain. LTG Duration 11/06/20 weakness Short Term Goal (STG) Pt will be indep w/HEP STG Duration 10/07/20 Marketing Instructor Goal (LTG) Pt will improve LE strength to at 5/5 in all planes and 3/5 for LPM in all planes w/o pain in order to allow for improved stability to inc ability to do typical activities. LTG Duration 11/06/20 LEFS Impairment 43/80 Short Term Goal (STG) Pt will improve score of LEFS to at least 53/80 to show improved functional ability. STG Duration 10/07/20 Marketing Instructor Goal (LTG) Pt will improve score of LEFS to at least 65/80 to show improved functional ability. LTG Duration 11/06/20 Assessment Summary Assessment Pt had difficulty with squat form with keeping good backa nd knee alignment. She did well with sit to stand vs squat and was able to do good wt shift fwd into LEs after faciliation. Still does require cuieng for postural alignment. She is improving with functional use of her knee though at this time Physical Therapy Plan Frequency and Duration Frequency of Treatment 2x/Week Duration of Treatment 2 months Plan of Care Start Date 09/06/20 Plan of Care End Date 11/06/20 Next Visit Focus/Plan Next Note Type Treatment Note Next Visit Plan work on gait mechanics & squatting, manual for knee pain & mobility
--- NOTE | 2020-10-07 08:13 | PT.OTN ---
Current Diagnoses Patellofemoral disorders, left knee (10/07/20) Synovial cyst of popliteal space [Cohen], left knee (10/07/20) Difficulty in walking, not elsewhere classified (10/07/20) Abnormal posture (10/07/20) Weakness (10/07/20) Physical Therapy Treatment Note PT-OP-A Visit Information Start: 09/02/20 18:37 Freq: Status: Active Protocol: Document 10/07/20 08:07 [facility] (Rec: 10/07/20 08:13 [facility] [id number]) Out-Patient Physical Therapy Visit Information Visit Information Visit Type Treatment Note Visit Start Time 07:30 Visit Stop Time 08:00 Total Visit Minutes 30 Visit Number 5 Number of CORE SETTER Visits 0 PT-OP-B Current Condition Start: 09/02/20 18:37 Freq: Status: Active Protocol: Document 09/06/20 13:00 [facility] (Rec: 09/06/20 13:49 [facility] [id number]) Current Condition History of Current Condition Onset Date 3 years ago w/reoccurance 6 weeks ago Current Complaints L knee pain History of Current Condition Pt reports in 2017, she bent down and heard a pop. It didn' t hurt at the time but the next day it was black and blue . She didn't have insurance at the time so wasn't treated but it got better in a few months. Pt cannot think of what she did, but she woke up about 6 weeks ago and it was slightly swollen, so she took it easy. Swelling went all the way into calf and US was neg for DVT. Pt has been wearing a brace that has a lateral stabilizer that helps. Pt wears that all the time now. Pt reports since past 6 weeks it is slightly better but is just stuck at this stage. Pt reports is avoiding heavier chores that require getting down to knees like washing bathtub. Pt walks and hikes with her dog daily and after work 3/4 mile and sometimes 5 miles w/significant elevation gain on the weekends. Prior Treatments and Tests MRI IMPRESSION: 1. No internal derangement. 2. Knee joint effusion and trace Cohen's cyst. 3. Mild patellar tendinitis. 4. Mild lateral patellar subluxation. 5. Mild medial and patellofemoral compartment articular cartilage loss. Treatment Goals Patient/Caregiver Goals be able to get down to knees to do cleaning things, be able to walk and hike w/dog like normal w/o pain Personal Factors Other Personal Factors That May Effect back pain- does mult Therapy/Recovery treatments PT-OP-C Subjective Start: 09/02/20 18:37 Freq: Status: Active Protocol: Document 10/07/20 08:07 [facility] (Rec: 10/07/20 08:13 [facility] [id number]) OP-PT Subjective Patient Comments Patient Comments Pt reports knee has been doing good. Notes pain only when she moves a certain way. Patient Reported Progress Improving PT-OP-D Balance Start: 09/02/20 18:37 Freq: Status: Active Protocol: Document 09/06/20 13:00 [facility] (Rec: 09/06/20 13:49 [facility] [id number]) Balance Tests Single Limb Standing Single Limb- Right >30 sec w/lat shear R w/slight hip drop Single Limb- Left >30 sec w/ lat shear L w/ slight hip drop PT-OP-F Manual Assessment Start: 09/02/20 18:37 Freq: Status: Active Protocol: Document 09/06/20 13:00 [facility] (Rec: 09/06/20 13:49 [facility] [id number]) Manual Assessments Soft Tissue Assessment Soft Tissue Mobility Assessment tightness/tendernss L ITB, quad, HS, adductors, patellar tendon, lat calf Joint Mobility Assessment Joint Mobility Assessment ER of tibia B, IR of femur B PT-OP-G Mobility & Gait Start: 09/02/20 18:37 Freq: Status: Active Protocol: Document 09/06/20 13:00 [facility] (Rec: 09/06/20 13:49 [facility] [id number]) OP Gait Assessment Comments Gait Comments ER of pelvis > on L PT-OP-J Posture/Palpation/Skin Start: 09/02/20 18:37 Freq: Status: Active Protocol: Document 09/06/20 13:00 [facility] (Rec: 09/06/20 13:49 [facility] [id number]) Posture Evaluation [facility] Postural Classification System Lumbar Protective Mechanism Left AP 0 Lumbar Protective Mechanism Right AP 0 Lumbar Protective Mechanism Left PA 0 Lumbar Protective Mechanism Right PA 3 PT-OP-K Range of Motion Start: 09/02/20 18:37 Freq: Status: Active Protocol: Document 09/06/20 13:00 [facility] (Rec: 09/06/20 13:49 [facility] [id number]) Knee Goniometric Range of Motion Knee Right Flexion Active (degrees) 125 Extension Active (degrees) 0 Left Flexion Active (degrees) 108 Extension Active (degrees) 10 Comments pain both directions PT-OP-L Special Tests Start: 09/02/20 18:37 Freq: Status: Active Protocol: Document 09/06/20 13:00 [facility] (Rec: 09/06/20 13:49 [facility] [id number]) Special Tests Knee Special Tests Gurdeep Test Results L>R hip flexor tightness and L quad tightness Carlos Alberto's Test Test Results L positive R Straight Leg Raise Test Results L 74 R:100 PT-OP-M Strength Start: 09/02/20 18:37 Freq: Status: Active Protocol: Document 09/06/20 13:00 [facility] (Rec: 09/06/20 13:49 [facility] [id number]) Hip Strength Hip Manual Muscle Testing Right Flexion (L2) 4- Good- Extension (S1) 4- Good- Abduction 4 Good Adduction 5 Normal External Rotation 4+ Good+ Internal Rotation 4 Good Left Flexion (L2) 4- Good- Extension (S1) 4- Good- Abduction 4- Good- Adduction 4 Good External Rotation 3+ Fair+ Internal Rotation 3+ Fair+ Knee Strength Knee Manual Muscle Testing Right Flexion (S2) 5 Normal Extension (L3) 5 Normal Left Flexion (S2) 4+ Good+ Extension (L3) 4 Good Comments pain w/knee ext Ankle/Foot Strength Ankle and Foot Manual Muscle Testing Right Dorsiflexion (L4) 5 Normal Plantarflexion (S1) 5 Normal Comments 20 heel raises Left Dorsiflexion (L4) 5 Normal Plantarflexion (S1) 4 Good Comments stopped at 14 d/t pain behind knee PT-OP-Q Treatments Start: 09/02/20 18:37 Freq: Status: Active Protocol: Document 10/07/20 08:07 [facility] (Rec: 10/07/20 08:13 [facility] [id number]) Therapeutic Exercises Standing Exercises SLS Standing Exercise Name focus in mirror on hip position Side bilateral Reps/Minutes mult reps hip hike Side bilateral Equipment Used 4 in step w/rail Reps/Minutes 10 squat Standing Exercise Name focus on enutral spine & knee position Side bilateral Reps/Minutes 2x10 Comments over plinth then over chair Gait Training Gait Activity wt shift Description fwd in mirror w/focus on wt acceptance Manual Therapy Treatment Soft Tissue Mobilization ITB Body Location L Mobilization Type Rolling,Strumming Intensity/Depth Moderate quads Body Location L VMO Mobilization Type Rolling,Strumming Intensity/Depth Moderate Body Position Supine Comments w/quad set PT-OP-R Modalities Start: 09/02/20 18:37 Freq: Status: Active Protocol: Document 09/23/20 11:13 [facility] (Rec: 09/23/20 12:10 [facility] [id number]) Hot Pack/Cold Pack Treatment Cold Pack Location L knee and quad Patient Position Hooklying Treatment Duration (minutes) 10 PT-OP-T Assessment and Plan Start: 09/02/20 18:37 Freq: Status: Active Protocol: Document 10/07/20 08:07 [facility] (Rec: 10/07/20 08:13 [facility] [id number]) Physical Therapy Assessment Goals activities [employer]arnish Supervisor Goal (LTG) Pt will be able to get up/down from ground and get onto knees without inc pain. LTG Duration 11/06/20 ROM Short Term Goal (STG) Pt will have 4-120 deg ROM. STG Duration 10/07/20 Varnish Supervisor Goal (LTG) Pt will have full knee ROM and be able to go up/down stairs without inc pain. LTG Duration 11/06/20 gait Short Term Goal (STG) pt will show improved push off for gait mechancis & improved glute activiation to dec rotational force on knees and lumbar spine. STG Duration 10/07/20 [facility] Goal (LTG) Pt will be able to go on steep hikes and walks of any distances w/o inc pain. LTG Duration 11/06/20 weakness Short Term Goal (STG) Pt will be indep w/HEP STG Duration 10/07/20 Varnish Supervisor Goal (LTG) Pt will improve LE strength to at 5/5 in all planes and 3/5 for LPM in all planes w/o pain in order to allow for improved stability to inc ability to do typical activities. LTG Duration 11/06/20 LEFS Impairment 43/80 Short Term Goal (STG) Pt will improve score of LEFS to at least 53/80 to show improved functional ability. STG Duration 10/07/20 Varnish Supervisor Goal (LTG) Pt will improve score of LEFS to at least 65/80 to show improved functional ability. LTG Duration 11/06/20 Assessment Summary Assessment Much improved form with squat and was able to do lower squat today vs sit to stand with better back and knee position with no inc pain. She had difficulty with wt acceptance in standing to LLE with wt shift and SLS. Pt to cont at home Physical Therapy Plan Frequency and Duration Frequency of Treatment 2x/Week Duration of Treatment 2 months Plan of Care Start Date 09/06/20 Plan of Care End Date 11/06/20 Next Visit Focus/Plan Next Note Type Treatment Note Next Visit Plan cont to work on gait mechanics , introduce balance board & uneven surfaces
--- NOTE | 2020-10-13 11:27 | PT.OTN ---
Current Diagnoses Patellofemoral disorders, left knee (10/13/20) Synovial cyst of popliteal space [Cohen], left knee (10/13/20) Difficulty in walking, not elsewhere classified (10/13/20) Abnormal posture (10/13/20) Weakness (10/13/20) Physical Therapy Treatment Note PT-OP-A Visit Information Start: 09/02/20 18:37 Freq: Status: Active Protocol: Document 10/13/20 10:32 [facility] (Rec: 10/13/20 11:27 [facility] [id number]) Out-Patient Physical Therapy Visit Information Visit Information Visit Type Treatment Note Visit Start Time 10:31 Visit Stop Time 11:14 Total Visit Minutes 43 Visit Number 6 Number of DIVISION ORDER ANALYST Visits 0 PT-OP-B Current Condition Start: 09/02/20 18:37 Freq: Status: Active Protocol: Document 09/06/20 13:00 [facility] (Rec: 09/06/20 13:49 [facility] [id number]) Current Condition History of Current Condition Onset Date 3 years ago w/reoccurance 6 weeks ago Current Complaints L knee pain History of Current Condition Pt reports in 2017, she bent down and heard a pop. It didn' t hurt at the time but the next day it was black and blue . She didn't have insurance at the time so wasn't treated but it got better in a few months. Pt cannot think of what she did, but she woke up about 6 weeks ago and it was slightly swollen, so she took it easy. Swelling went all the way into calf and US was neg for DVT. Pt has been wearing a brace that has a lateral stabilizer that helps. Pt wears that all the time now. Pt reports since past 6 weeks it is slightly better but is just stuck at this stage. Pt reports is avoiding heavier chores that require getting down to knees like washing bathtub. Pt walks and hikes with her dog daily and after work 3/4 mile and sometimes 5 miles w/significant elevation gain on the weekends. Prior Treatments and Tests MRI IMPRESSION: 1. No internal derangement. 2. Knee joint effusion and trace Cohen's cyst. 3. Mild patellar tendinitis. 4. Mild lateral patellar subluxation. 5. Mild medial and patellofemoral compartment articular cartilage loss. Treatment Goals Patient/Caregiver Goals be able to get down to knees to do cleaning things, be able to walk and hike w/dog like normal w/o pain Personal Factors Other Personal Factors That May Effect back pain- does mult Therapy/Recovery treatments PT-OP-C Subjective Start: 09/02/20 18:37 Freq: Status: Active Protocol: Document 10/13/20 10:32 [facility] (Rec: 10/13/20 11:27 [facility] [id number]) OP-PT Subjective Patient Comments Patient Comments no knee pain recently. Went on a trail that was uneven and did ok. Ankle rolled a little but it didn't bother L knee PT-OP-D Balance Start: 09/02/20 18:37 Freq: Status: Active Protocol: Document 09/06/20 13:00 [facility] (Rec: 09/06/20 13:49 [facility] [id number]) Balance Tests Single Limb Standing Single Limb- Right >30 sec w/lat shear R w/slight hip drop Single Limb- Left >30 sec w/ lat shear L w/ slight hip drop PT-OP-F Manual Assessment Start: 09/02/20 18:37 Freq: Status: Active Protocol: Document 09/06/20 13:00 [facility] (Rec: 09/06/20 13:49 [facility] [id number]) Manual Assessments Soft Tissue Assessment Soft Tissue Mobility Assessment tightness/tendernss L ITB, quad, HS, adductors, patellar tendon, lat calf Joint Mobility Assessment Joint Mobility Assessment ER of tibia B, IR of femur B PT-OP-G Mobility & Gait Start: 09/02/20 18:37 Freq: Status: Active Protocol: Document 09/06/20 13:00 [facility] (Rec: 09/06/20 13:49 [facility] [id number]) OP Gait Assessment Comments Gait Comments ER of pelvis > on L PT-OP-J Posture/Palpation/Skin Start: 09/02/20 18:37 Freq: Status: Active Protocol: Document 09/06/20 13:00 [facility] (Rec: 09/06/20 13:49 [facility] [id number]) Posture Evaluation [facility] Postural Classification System Lumbar Protective Mechanism Left AP 0 Lumbar Protective Mechanism Right AP 0 Lumbar Protective Mechanism Left PA 0 Lumbar Protective Mechanism Right PA 3 PT-OP-K Range of Motion Start: 09/02/20 18:37 Freq: Status: Active Protocol: Document 09/06/20 13:00 [facility] (Rec: 09/06/20 13:49 [facility] [id number]) Knee Goniometric Range of Motion Knee Right Flexion Active (degrees) 125 Extension Active (degrees) 0 Left Flexion Active (degrees) 108 Extension Active (degrees) 10 Comments pain both directions PT-OP-L Special Tests Start: 09/02/20 18:37 Freq: Status: Active Protocol: Document 09/06/20 13:00 [facility] (Rec: 09/06/20 13:49 [facility] [id number]) Special Tests Knee Special Tests Gurdeep Test Results L>R hip flexor tightness and L quad tightness Carlos Alberto's Test Test Results L positive R Straight Leg Raise Test Results L 74 R:100 PT-OP-M Strength Start: 09/02/20 18:37 Freq: Status: Active Protocol: Document 09/06/20 13:00 [facility] (Rec: 09/06/20 13:49 [facility] [id number]) Hip Strength Hip Manual Muscle Testing Right Flexion (L2) 4- Good- Extension (S1) 4- Good- Abduction 4 Good Adduction 5 Normal External Rotation 4+ Good+ Internal Rotation 4 Good Left Flexion (L2) 4- Good- Extension (S1) 4- Good- Abduction 4- Good- Adduction 4 Good External Rotation 3+ Fair+ Internal Rotation 3+ Fair+ Knee Strength Knee Manual Muscle Testing Right Flexion (S2) 5 Normal Extension (L3) 5 Normal Left Flexion (S2) 4+ Good+ Extension (L3) 4 Good Comments pain w/knee ext Ankle/Foot Strength Ankle and Foot Manual Muscle Testing Right Dorsiflexion (L4) 5 Normal Plantarflexion (S1) 5 Normal Comments 20 heel raises Left Dorsiflexion (L4) 5 Normal Plantarflexion (S1) 4 Good Comments stopped at 14 d/t pain behind knee PT-OP-Q Treatments Start: 09/02/20 18:37 Freq: Status: Active Protocol: Document 10/13/20 10:32 [facility] (Rec: 10/13/20 11:27 [facility] [id number]) Gym Equipment Shuttle Balance red clips Comments fwd: WBOS, nBOS, staggered stance B w/head turns side: WBOS w/head turns, NBOS Sport Cord step up Exercise Details w/alt march Cord/Resistance green Reps/Duration 8 B Therapeutic Exercises Standing Exercises lunges Side bilateral Reps/Minutes 15 step ups Standing Exercise Name w/alt march Side bilateral Reps/Minutes 8 in SLS Standing Exercise Name focus in mirror on hip position Side bilateral Reps/Minutes mult reps hip hike Side bilateral Equipment Used 4 in step w/rail Reps/Minutes 10 Manual Therapy Treatment Soft Tissue Mobilization ITB Body Location L Mobilization Type Rolling,Strumming Intensity/Depth Moderate PT-OP-R Modalities Start: 09/02/20 18:37 Freq: Status: Active Protocol: Document 09/23/20 11:13 [facility] (Rec: 09/23/20 12:10 [facility] [id number]) Hot Pack/Cold Pack Treatment Cold Pack Location L knee and quad Patient Position Hooklying Treatment Duration (minutes) 10 PT-OP-T Assessment and Plan Start: 09/02/20 18:37 Freq: Status: Active Protocol: Document 10/13/20 10:32 [facility] (Rec: 10/13/20 11:27 [facility] [id number]) Physical Therapy Assessment Goals activities Senior Living Goal (LTG) Pt will be able to get up/down from ground and get onto knees without inc pain. LTG Duration 11/06/20 ROM Short Term Goal (STG) Pt will have 4-120 deg ROM. STG Duration 10/07/20 Senior Living Goal (LTG) Pt will have full knee ROM and be able to go up/down stairs without inc pain. LTG Duration 11/06/20 gait Short Term Goal (STG) pt will show improved push off for gait mechancis & improved glute activiation to dec rotational force on knees and lumbar spine. STG Duration 10/07/20 Gig Tender Goal (LTG) Pt will be able to go on steep hikes and walks of any distances w/o inc pain. LTG Duration 11/06/20 weakness Short Term Goal (STG) Pt will be indep w/HEP STG Duration 10/07/20 Gig Tender Goal (LTG) Pt will improve LE strength to at 5/5 in all planes and 3/5 for LPM in all planes w/o pain in order to allow for improved stability to inc ability to do typical activities. LTG Duration 11/06/20 LEFS Impairment 43/80 Short Term Goal (STG) Pt will improve score of LEFS to at least 53/80 to show improved functional ability. STG Duration 10/07/20 Senior Living Goal (LTG) Pt will improve score of LEFS to at least 65/80 to show improved functional ability. LTG Duration 11/06/20 Assessment Summary Assessment Pt did well with balance and was challenged by red clips. Knee pain only noted during lunges today on R knee when attempted to get pt more neutral in starting position. ALlowed pt to be less neutral on R side when back d/t less pain in knee and form was good when down in lunge position. Pt to follow up in a couple weeks as she inc her hiking as able. Physical Therapy Plan Frequency and Duration Frequency of Treatment 2x/Week Duration of Treatment 2 months Plan of Care Start Date 09/06/20 Plan of Care End Date 11/06/20 Next Visit Focus/Plan Next Note Type Treatment Note Next Visit Plan cont to work on gait mechanics , introduce balance board & uneven surfaces
--- NOTE | 2020-11-29 16:08 | PT.OTN ---
Current Diagnoses Patellofemoral disorders, left knee (11/29/20) Synovial cyst of popliteal space [Cohen], left knee (11/29/20) Difficulty in walking, not elsewhere classified (11/29/20) Abnormal posture (11/29/20) Weakness (11/29/20) Physical Therapy Treatment Note PT-OP-A Visit Information Start: 09/02/20 18:37 Freq: Status: Active Protocol: Document 11/29/20 14:43 [facility] (Rec: 11/29/20 16:08 [facility] [id number]) Out-Patient Physical Therapy Visit Information Visit Information Visit Type Discharge Summary Visit Start Time 15:15 Visit Stop Time 15:45 Total Visit Minutes 30 Visit Number 7 Number of CONTACT REPRESENTATIVE Visits 0 PT-OP-B Current Condition Start: 09/02/20 18:37 Freq: Status: Active Protocol: Document 09/06/20 13:00 [facility] (Rec: 09/06/20 13:49 [facility] [id number]) Current Condition History of Current Condition Onset Date 3 years ago w/reoccurance 6 weeks ago Current Complaints L knee pain History of Current Condition Pt reports in 2017, she bent down and heard a pop. It didn' t hurt at the time but the next day it was black and blue . She didn't have insurance at the time so wasn't treated but it got better in a few months. Pt cannot think of what she did, but she woke up about 6 weeks ago and it was slightly swollen, so she took it easy. Swelling went all the way into calf and US was neg for DVT. Pt has been wearing a brace that has a lateral stabilizer that helps. Pt wears that all the time now. Pt reports since past 6 weeks it is slightly better but is just stuck at this stage. Pt reports is avoiding heavier chores that require getting down to knees like washing bathtub. Pt walks and hikes with her dog daily and after work 3/4 mile and sometimes 5 miles w/significant elevation gain on the weekends. Prior Treatments and Tests MRI IMPRESSION: 1. No internal derangement. 2. Knee joint effusion and trace Cohen's cyst. 3. Mild patellar tendinitis. 4. Mild lateral patellar subluxation. 5. Mild medial and patellofemoral compartment articular cartilage loss. Treatment Goals Patient/Caregiver Goals be able to get down to knees to do cleaning things, be able to walk and hike w/dog like normal w/o pain Personal Factors Other Personal Factors That May Effect back pain- does mult Therapy/Recovery treatments PT-OP-C Subjective Start: 09/02/20 18:37 Freq: Status: Active Protocol: Document 11/29/20 14:43 [facility] (Rec: 11/29/20 16:08 [facility] [id number]) OP-PT Subjective Patient Comments Patient Comments Pt had been doing great with knee pain and had even hiked 7 miles without issues. Last sunday, she slipped walking down an embankment to a stream and rolled her ankle. Xrays revealed not fracture but it has been swollen and she has been using a knee scooter for longer distance. Slight tweaking of knee with slip but now not bother her PT-OP-D Balance Start: 09/02/20 18:37 Freq: Status: Active Protocol: Document 09/06/20 13:00 [facility] (Rec: 09/06/20 13:49 [facility] [id number]) Balance Tests Single Limb Standing Single Limb- Right >30 sec w/lat shear R w/slight hip drop Single Limb- Left >30 sec w/ lat shear L w/ slight hip drop PT-OP-F Manual Assessment Start: 09/02/20 18:37 Freq: Status: Active Protocol: Document 09/06/20 13:00 [facility] (Rec: 09/06/20 13:49 [facility] [id number]) Manual Assessments Soft Tissue Assessment Soft Tissue Mobility Assessment tightness/tendernss L ITB, quad, HS, adductors, patellar tendon, lat calf Joint Mobility Assessment Joint Mobility Assessment ER of tibia B, IR of femur B PT-OP-G Mobility & Gait Start: 09/02/20 18:37 Freq: Status: Active Protocol: Document 09/06/20 13:00 [facility] (Rec: 09/06/20 13:49 [facility] [id number]) OP Gait Assessment Comments Gait Comments ER of pelvis > on L PT-OP-J Posture/Palpation/Skin Start: 09/02/20 18:37 Freq: Status: Active Protocol: Document 09/06/20 13:00 [facility] (Rec: 09/06/20 13:49 [facility] [id number]) Posture Evaluation [facility] Postural Classification System Lumbar Protective Mechanism Left AP 0 Lumbar Protective Mechanism Right AP 0 Lumbar Protective Mechanism Left PA 0 Lumbar Protective Mechanism Right PA 3 PT-OP-K Range of Motion Start: 09/02/20 18:37 Freq: Status: Active Protocol: Document 09/06/20 13:00 [facility] (Rec: 09/06/20 13:49 [facility] [id number]) Knee Goniometric Range of Motion Knee Right Flexion Active (degrees) 125 Extension Active (degrees) 0 Left Flexion Active (degrees) 108 Extension Active (degrees) 10 Comments pain both directions PT-OP-L Special Tests Start: 09/02/20 18:37 Freq: Status: Active Protocol: Document 09/06/20 13:00 [facility] (Rec: 09/06/20 13:49 [facility] [id number]) Special Tests Knee Special Tests Gurdeep Test Results L>R hip flexor tightness and L quad tightness Carlos Alberto's Test Test Results L positive R Straight Leg Raise Test Results L 74 R:100 PT-OP-M Strength Start: 09/02/20 18:37 Freq: Status: Active Protocol: Document 11/29/20 14:43 [facility] (Rec: 11/29/20 16:08 [facility] [id number]) Hip Strength Hip Manual Muscle Testing Right Flexion (L2) 5 Normal Extension (S1) 5 Normal Abduction 5 Normal Adduction 5 Normal External Rotation 5 Normal Internal Rotation 5 Normal Left Flexion (L2) 5 Normal Extension (S1) 5 Normal Abduction 5 Normal Adduction 5 Normal External Rotation 5 Normal Internal Rotation 5 Normal Knee Strength Knee Manual Muscle Testing Right Flexion (S2) 5 Normal Extension (L3) 5 Normal Left Flexion (S2) 5 Normal Extension (L3) 4+ Good+ Comments pain w/knee ext w/hand hold d/ t ankle injury PT-OP-Q Treatments Start: 09/02/20 18:37 Freq: Status: Active Protocol: Document 11/29/20 14:43 [facility] (Rec: 11/29/20 16:08 [facility] [id number]) Therapeutic Exercises Supine Exercises flex Supine Exercise Name SLR Side bilateral Reps/Minutes 10 Comments core focus Sidelying Exercises hip abd Sidelying Exercise Name hip abd and hip add Side bilateral Equipment Used 5 Manual Therapy Treatment Soft Tissue Mobilization calf Body Location L Mobilization Type Rolling Intensity/Depth Moderate Body Position Hooklying Self-Care/Home Management Treatment Education Other Education edu for compression stocking for LLE to dec lower leg swelling & to go to [facility] to get referral for L ankle PT-OP-R Modalities Start: 09/02/20 18:37 Freq: Status: Active Protocol: Document 09/23/20 11:13 [facility] (Rec: 09/23/20 12:10 [facility] [id number]) Hot Pack/Cold Pack Treatment Cold Pack Location L knee and quad Patient Position Hooklying Treatment Duration (minutes) 10 PT-OP-T Assessment and Plan Start: 09/02/20 18:37 Freq: Status: Active Protocol: Document 11/29/20 14:43 [facility] (Rec: 11/29/20 16:08 [facility] [id number]) Physical Therapy Assessment Goals activities Detention Goal (LTG) Pt will be able to get up/down from ground and get onto knees without inc pain. LTG Duration was able to prior ot ankle injury ROM Short Term Goal (STG) Pt will have 4-120 deg ROM. STG Duration achieved Branch Billing Payroll Clerk Goal (LTG) Pt will have full knee ROM and be able to go up/down stairs without inc pain. LTG Duration was able prior to ankle injury gait Short Term Goal (STG) pt will show improved push off for gait mechancis & improved glute activiation to dec rotational force on knees and lumbar spine. STG Duration achieved prior to ankle injury Branch Billing Payroll Clerk Goal (LTG) Pt will be able to go on steep hikes and walks of any distances w/o inc pain. LTG Duration achieved weakness Short Term Goal (STG) Pt will be indep w/HEP STG Duration achieved Branch Billing Payroll Clerk Goal (LTG) Pt will improve LE strength to at 5/5 in all planes and 3/5 for LPM in all planes w/o pain in order to allow for improved stability to inc ability to do typical activities. LTG Duration hip and knee strength is good LEFS Impairment 43/80 Short Term Goal (STG) Pt will improve score of LEFS to at least 53/80 to show improved functional ability. STG Duration n/t d/t ankle injury Branch Billing Payroll Clerk Goal (LTG) Pt will improve score of LEFS to at least 65/80 to show improved functional ability. LTG Duration 11/06/20 Assessment Summary Assessment Pt had been doing very well with dec knee pain and increasing activity without issues until she was injured her ankle 1 week ago. She is limited with knee flex today only d/t calf swelling not knee pain. She had returned to hiking and typical activities prior to this injury and had even hiked 7 miles one day. Pt is DC at this time for knee and encouraged to follow up with PCP re: ankle pain and discuss PT referral. Physical Therapy Plan Discharge Physical Therapy Discharge Reasons Goals Met
== END 2020-11-30 07:44 | disposition home or self-care (01) ==
LOC: PHYS 15:15
PROVIDERS: PCP Student in an Organized Health Care Education/Training Program
DX: M22.2X2 Patellofemoral disorders, left knee (principal); M71.22 Synovial cyst of popliteal space [Baker], left knee; R53.1 Weakness; R29.3 Abnormal posture; R26.2 Difficulty in walking, not elsewhere classified
CPT/HCPCS: 97010; 97110; 97112; 97140; 97162; 97530; 97535

== ENCOUNTER → 2020-12-24 08:13 | Outpatient (CLI) | payer OTHER, SELFPAY ==
--- NOTE | 2020-12-24 08:14 | DI.MG.S_ITS ---
BILATERAL DIGITAL SCREENING MAMMOGRAM 3D/2D WITH CAD: 12/24/2020 CLINICAL: Routine screening. Family history of breast cancer. Comparison is made to exams dated: 10/31/2018 mammogram - [facility] and 11/16/2015 mammogram - [facility]. There are scattered fibroglandular elements in both breasts. Current study was also evaluated with a Computer Aided Detection (CAD) system. No significant masses, calcifications, or other findings are seen in either breast. There has been no significant interval change. IMPRESSION: NEGATIVE There is no mammographic evidence of malignancy. A 1 year screening mammogram is recommended. This exam was interpreted at Station ID: [id number]. NOTE: For mammograms, a report in lay terms will be sent to the patient. Approximately 15% of breast malignancies will not be visualized mammographically. In the management of a palpable breast mass, a negative mammogram must not discourage biopsy of a clinically suspicious lesion. Electronically Signed By: Ernesto araujo/[email or web address]:12/24/2020 08:39:41 letter sent: Normal Exam ACR BI-RADS Category 1: Negative [id number]
== END ==
PROVIDERS: Family Provider Student in an Organized Health Care Education/Training Program; PCP Student in an Organized Health Care Education/Training Program; Referring Provider Student in an Organized Health Care Education/Training Program; Visit Provider Student in an Organized Health Care Education/Training Program
DX: Z12.31 Encounter for screening mammogram for malignant neoplasm of breast (principal); Z80.3 Family history of malignant neoplasm of breast
CPT/HCPCS: 77063; 77067

== ENCOUNTER → 2021-01-31 11:16 | Outpatient (CLI) | payer OTHER, SELFPAY ==
[2021-01-31 16:51] LABS: Follicle Stimulating Hormone 31.7 mIU/mL
[2021-01-31 17:07] LABS: Estradiol, Total 99.6 pg/mL
== END ==
PROVIDERS: Specialist; Family Provider Student in an Organized Health Care Education/Training Program; PCP Student in an Organized Health Care Education/Training Program; Referring Provider Student in an Organized Health Care Education/Training Program; Visit Provider Student in an Organized Health Care Education/Training Program
DX: R23.2 Flushing (principal)
CPT/HCPCS: 36415; 82670; 83001; 84270

== ENCOUNTER 2021-03-08 07:30 | Outpatient (RCR) | payer OTHER, SELFPAY ==
--- NOTE | 2020-12-14 09:39 | PT.OIE ---
Current Diagnoses Pain in left ankle and joints of left foot (12/14/20) Past Medical History (Last Reviewed 12/03/20 @ 08:59 by ERICH Gomez) Anxiety Calf pain (~2014) Calf swelling Chronic back pain COVID-19 Endometriosis Facet arthropathy, lumbosacral Fibroids (~1992) GERD (gastroesophageal reflux disease) (~1999) Heavy menstrual period (~1982) History of back surgery (~2005) History of bipolar disorder History of cholecystectomy History of laparoscopy History of oophorectomy (~2014) Hot flashes (~2014) Left ankle pain Left ankle strain Left knee pain Lumbosacral spondylosis with radiculopathy Ovarian cyst Painful menstrual periods Sacral dysfunction Past Surgical History (Last Reviewed 12/03/20 @ 08:59 by ERICH Gomez) Anesthesia History of back surgery (~2005) History of cholecystectomy History of hysterectomy (~1997) History of laparoscopy History of oophorectomy (~2014) Visit Care Team Role Provider Type Augie Geronimo MD Family Provider Physician Primary Care Provider Specialty: Internal Medicine Address: [address] [place] [address], [place] [address] Email: [email or web address] ERICH Gomez Attending Provider Advanced Sanforizing Machine Operator Referring Provider Specialty: Medical Address: [address] [place] [address] Email: [email or web address] Physical Therapy Initial Evaluation PT-OP-A Visit Information Start: 12/13/20 17:30 Freq: Status: Active Protocol: Document 12/14/20 07:29 [facility] (Rec: 12/14/20 08:17 [facility] [id number]) Out-Patient Physical Therapy Visit Information Visit Information Visit Type Initial Evaluation Visit Start Time 07:32 Visit Stop Time 08:13 Total Visit Minutes 41 Visit Number 1 Number of BUTT PRESSER Visits 0 PT-OP-B Current Condition Start: 12/13/20 17:30 Freq: Status: Active Protocol: Document 12/14/20 07:29 [facility] (Rec: 12/14/20 08:17 [facility] [id number]) Current Condition History of Current Condition Onset Date 3 weeks ago Current Complaints L ankle pain History of Current Condition Pt sprained ankle when walking down enbankment when walking w/dog. Had to walk 1 mile back to car. She had Xrays that showed no fracture. She was using scooter for about 1 week to offload. After last week, swelling went down d/t being able to stay home and keep it up. She has been able to go for walks w/ dog on flat surfaces or really mild trails for about 1 mile. Its a little sore after walking and is still a little sore after work when she has to drive down to the office. MOves slower w/ADLs. L knee sometimes bothers her when she walks funny Prior Treatments and Tests PT for knee helpful Treatment Goals Patient/Caregiver Goals get back hiking, be able to run w/dog, be able ot work Personal Factors Other Personal Factors That May Effect LBP, L knee pain Therapy/Recovery PT-OP-C Subjective Start: 12/13/20 17:30 Freq: Status: Active Protocol: Document 12/14/20 07:29 [facility] (Rec: 12/14/20 08:17 [facility] [id number]) Patient Questionnaires Foot & Ankle Ability Measure- ADL and Sports FAAM-ADL Score 69 FAAM-Sport Score 19 Lower Extremity Functional Scale LEFS Score 58 OP-PT Pain Assessment Location L ankle Pain Location Details ant ankle, lat ankle, some med Intensity 5 Scale Used Numeric (0 - 10) Description Aching,Throbbing,With Movement Frequency Intermittent Pain Aggravating Factors Walking Other Pain Aggravating Factors having it dangling Pain Alleviating Factors Cold,Elevation Other Pain Alleviating Factors 1st thing in the AM PT-OP-D Balance Start: 12/13/20 17:30 Freq: Status: Active Protocol: Document 12/14/20 07:29 [facility] (Rec: 12/14/20 08:17 [facility] [id number]) Balance Tests Single Limb Standing Single Limb- Right >30 sec Single Limb- Left 7 sec w/UE and trunk deviation -pain PT-OP-F Manual Assessment Start: 12/13/20 17:30 Freq: Status: Active Protocol: Document 12/14/20 07:29 [facility] (Rec: 12/14/20 08:17 [facility] [id number]) Manual Assessments Soft Tissue Assessment Soft Tissue Mobility Assessment tenderness over ATFL most but also PTFL, MTFL, calf and achilles tightness and tenderness ant joint line and ant tibia PT-OP-G Mobility & Gait Start: 12/13/20 17:30 Freq: Status: Active Protocol: Document 12/14/20 07:29 [facility] (Rec: 12/14/20 08:17 [facility] [id number]) OP Gait Assessment Comments Gait Comments Dec push off L & dec stance time, ER of pelvis w/push off, IR of L>R femur in stance PT-OP-J Posture/Palpation/Skin Start: 12/13/20 17:30 Freq: Status: Active Protocol: Document 12/14/20 07:29 [facility] (Rec: 12/14/20 08:17 [facility] [id number]) Posture Evaluation [facility] Postural Classification System Lumbar Protective Mechanism Left AP 1 Lumbar Protective Mechanism Right AP 3 Lumbar Protective Mechanism Left PA 3 Lumbar Protective Mechanism Right PA 3 Skin Assessment Circumference Measurement R ankle Location malleoli Measurement (Centimeters) 26.7 L ankle Location malleoli Measurement (Centimeters) 28.2 PT-OP-K Range of Motion Start: 12/13/20 17:30 Freq: Status: Active Protocol: Document 12/14/20 07:29 [facility] (Rec: 12/14/20 08:17 [facility] [id number]) Ankle and Foot Goniometric Range of Motion Ankle and Foot Right Active Dorsiflexion with Knee Flexed 9 Dorsiflexion with Knee Extended 8 Plantarflexion 46 Inversion 37 Eversion 24 Left Active Dorsiflexion with Knee Flexed 0 Dorsiflexion with Knee Extended 10 Plantarflexion 37 Inversion 18 Eversion 27 Comments lacking 10 deg to neutral in knee ext position PT-OP-L Special Tests Start: 12/13/20 17:30 Freq: Status: Active Protocol: Document 12/14/20 07:29 [facility] (Rec: 12/14/20 08:17 [facility] [id number]) Special Tests Foot/Ankle Special Tests Talor Tilt Test Results neg Anterior Draw Test Results neg PT-OP-M Strength Start: 12/13/20 17:30 Freq: Status: Active Protocol: Document 12/14/20 07:29 [facility] (Rec: 12/14/20 08:17 [facility] [id number]) Hip Strength Hip Manual Muscle Testing Right Flexion (L2) 5 Normal Extension (S1) 5 Normal Abduction 5 Normal Adduction 5 Normal External Rotation 5 Normal Internal Rotation 5 Normal Left Flexion (L2) 5 Normal Extension (S1) 4+ Good+ Abduction 4+ Good+ Adduction 5 Normal External Rotation 5 Normal Internal Rotation 5 Normal Knee Strength Knee Manual Muscle Testing Right Flexion (S2) 5 Normal Extension (L3) 5 Normal Left Flexion (S2) 5 Normal Extension (L3) 5 Normal Ankle/Foot Strength Ankle and Foot Manual Muscle Testing Right Comments 20 heel raises Left Dorsiflexion (L4) 3+ Fair+ Plantarflexion (S1) 2+ Poor+ Inversion 3+ Fair+ Eversion (S1) 3+ Fair+ Comments pain PT-OP-Q Treatments Start: 12/13/20 17:30 Freq: Status: Active Protocol: Document 12/14/20 07:29 [facility] (Rec: 12/14/20 08:17 [facility] [id number]) Therapeutic Exercises Sitting Exercises toe scrunch Sitting Exercise Name towel Reps/Minutes 1x stretch Sitting Exercise Name towel calf Side left Reps/Minutes 30 sec ROM Sitting Exercise Name 1. circles 2. DF/PF 3. inversion/eversion Side left Reps/Minutes 10 ea Comments ABCs x1 Self-Care/Home Management Treatment Education Other Education edu to cont compression & ice and rolling out calf PT-OP-T Assessment and Plan Start: 12/13/20 17:30 Freq: Status: Active Protocol: Document 12/14/20 07:29 [facility] (Rec: 12/14/20 08:17 [facility] [id number]) Physical Therapy Assessment Rehab Potential Rehabilitation Potential Good Evaluation Complexity Number of Personal Factors/Comorbidities 3 or More Number of Body Systems Impaired 4 or More Clinical Presentation at Evaluation Stable Impairments Impairments Activity Tolerance,Balance, Edema,Functional Activities, Functional Mobility,Gait,Pain, Posture,ROM,Soft Tissue Mobility,Strength Goals activities Short Term Goal (STG) pt will be able to go on 3 mile walks w/o inc in pain in L ankle STG Duration 01/13/21 Penitentiary Goal (LTG) Pt will be able to hike w/dog and run w/dog w/o inc L ankle pain LTG Duration 02/13/21 ROM Short Term Goal (STG) Pt will have neutral DF to 0 in knee ext position L and PF to 50 deg. STG Duration 01/13/21 Penitentiary Goal (LTG) Pt will have at least 10 deg DF in knee flex and ext position on L to show improved ROM in order to improve gait mechanics. LTG Duration 02/13/21 strength Short Term Goal (STG) Pt will be indep w/HEP STG Duration 01/13/21 Penitentiary Goal (LTG) Pt will score 5/5 w/all LE MMT to show improved strength to improve ability to return to daily activities. LTG Duration 02/13/21 LEFS Impairment 58/80 Short Term Goal (STG) Pt will score 67/80 to show improved functional ability. STG Duration 01/13/21 Accessories Repairer Goal (LTG) Pt will score 80/80 to show improved functional ability. LTG Duration 02/13/21 Assessment Summary Assessment Pt presents 3 weeks after L ankle sprain likely involving lat ligaments d/t tenderness over the area and location of swelling and mechanism of injury. She used knee scooter for the first week but has gradually progressed her activity level since and noticed significant dec in swelling last week after workign from home where she was able to do RICE principles more frequently.S he ordered a wrapping and lacing ankle stability brace which she has been wearing on walks with her dog up to a mile. She has pain with increased activity or inc time of L ankle in dependent position. Her gait mechanics have changed w/less push off and less stance time on LLE d/t pain which aggrevates her L knee and LB w /change in gait. She has dec balance and pain w/SLS. She would benefit from skilled PT to work on her deficits to return to her typical activities. Physical Therapy Plan Frequency and Duration Frequency of Treatment 1-2x/week Duration of Treatment 2 months Plan of Care Start Date 12/14/20 Plan of Care End Date 02/13/21 Therapeutic Interventions Therapeutic Interventions Aquatic Therapy,Balance Training,Gait Training,Home Exercise Program,Joint Mobilizations,Manual Therapy, Neuromuscular Re-education, Orthotic/Prosthetic Management ,Patient/Caregiver Education, Self-Care/Home Management,Soft Tissue Mobilization,Taping, Therapeutic Activities, Therapeutic Exercises Next Visit Focus/Plan Next Note Type Treatment Note Next Visit Plan review ROM prn, BAPs board, try ankle strengthening, SLS , manual for ankle motion, DL balance on foam
--- NOTE | 2020-12-14 09:39 | PT.OPPOC ---
Physical, Occupational & Speech Therapy At [facility] Current Diagnoses Pain in left ankle and joints of left foot (12/14/20) Visit Care Team Role Provider Type Augie Geronimo MD Family Provider Physician Primary Care Provider Specialty: Internal Medicine Address: [address] [place] [address], [address], [address] Email: [email or web address] ERICH Gomez Attending Provider Advanced Software Systems Engineer Referring Provider Specialty: Medical Address: [address] [place] [address], [address] Email: [email or web address] Plan Of Care PT-OP-T Assessment and Plan Start: 12/13/20 17:30 Freq: Status: Active Protocol: Document 12/14/20 07:29 [facility] (Rec: 12/14/20 08:17 [facility] [id number]) Physical Therapy Assessment Rehab Potential Rehabilitation Potential Good Evaluation Complexity Number of Personal Factors/Comorbidities 3 or More Number of Body Systems Impaired 4 or More Clinical Presentation at Evaluation Stable Impairments Impairments Activity Tolerance,Balance, Edema,Functional Activities, Functional Mobility,Gait,Pain, Posture,ROM,Soft Tissue Mobility,Strength Goals activities Short Term Goal (STG) pt will be able to go on 3 mile walks w/o inc in pain in L ankle STG Duration 01/13/21 Retirement Goal (LTG) Pt will be able to hike w/dog and run w/dog w/o inc L ankle pain LTG Duration 02/13/21 ROM Short Term Goal (STG) Pt will have neutral DF to 0 in knee ext position L and PF to 50 deg. STG Duration 01/13/21 Tooler Goal (LTG) Pt will have at least 10 deg DF in knee flex and ext position on L to show improved ROM in order to improve gait mechanics. LTG Duration 02/13/21 strength Short Term Goal (STG) Pt will be indep w/HEP STG Duration 01/13/21 Retirement Goal (LTG) Pt will score 5/5 w/all LE MMT to show improved strength to improve ability to return to daily activities. LTG Duration 02/13/21 LEFS Impairment 58/80 Short Term Goal (STG) Pt will score 67/80 to show improved functional ability. STG Duration 01/13/21 Tooler Goal (LTG) Pt will score 80/80 to show improved functional ability. LTG Duration 02/13/21 Assessment Summary Assessment Pt presents 3 weeks after L ankle sprain likely involving lat ligaments d/t tenderness over the area and location of swelling and mechanism of injury. She used knee scooter for the first week but has gradually progressed her activity level since and noticed significant dec in swelling last week after workign from home where she was able to do RICE principles more frequently.S he ordered a wrapping and lacing ankle stability brace which she has been wearing on walks with her dog up to a mile. She has pain with increased activity or inc time of L ankle in dependent position. Her gait mechanics have changed w/less push off and less stance time on LLE d/t pain which aggrevates her L knee and LB w /change in gait. She has dec balance and pain w/SLS. She would benefit from skilled PT to work on her deficits to return to her typical activities. Physical Therapy Plan Frequency and Duration Frequency of Treatment 1-2x/week Duration of Treatment 2 months Plan of Care Start Date 12/14/20 Plan of Care End Date 02/13/21 Therapeutic Interventions Therapeutic Interventions Aquatic Therapy,Balance Training,Gait Training,Home Exercise Program,Joint Mobilizations,Manual Therapy, Neuromuscular Re-education, Orthotic/Prosthetic Management ,Patient/Caregiver Education, Self-Care/Home Management,Soft Tissue Mobilization,Taping, Therapeutic Activities, Therapeutic Exercises Next Visit Focus/Plan Next Note Type Treatment Note Next Visit Plan review ROM prn, BAPs board, try ankle strengthening, SLS , manual for ankle motion, DL balance on foam Plan of Care Dates Plan of Care Start Date 12/14/20 Plan of Care End Date 02/13/21 Electronically Signed by: Joanna Melton, PT 12/14/20 5130 Please Sign and Return: I have reviewed this Plan of Care and certify that the skilled therapy services above are required to meet the patient?s needs. Physician Signature Date Printed Name and Credentials Clinical Instructor Signature Printed Name and Credentials
--- NOTE | 2020-12-24 14:01 | PT.OTN ---
Current Diagnoses Pain in left ankle and joints of left foot (12/24/20) Physical Therapy Treatment Note PT-OP-A Visit Information Start: 12/13/20 17:30 Freq: Status: Active Protocol: Document 12/24/20 12:45 AMB (Rec: 12/24/20 14:01 AMB [email or web address]) Out-Patient Physical Therapy Visit Information Visit Information Visit Type Treatment Note Visit Start Time 12:45 Visit Stop Time 13:30 Total Visit Minutes 45 Visit Number 2 PT-OP-B Current Condition Start: 12/13/20 17:30 Freq: Status: Active Protocol: Document 12/14/20 07:29 [facility] (Rec: 12/14/20 08:17 [facility] [id number]) Current Condition History of Current Condition Onset Date 3 weeks ago Current Complaints L ankle pain History of Current Condition Pt sprained ankle when walking down [place] when walking w/dog. Had to walk 1 mile back to car. She had Xrays that showed no fracture. She was using scooter for about 1 week to offload. After last week, swelling went down d/t being able to stay home and keep it up. She has been able to go for walks w/ dog on flat surfaces or really mild trails for about 1 mile. Its a little sore after walking and is still a little sore after work when she has to drive down to the office. MOves slower w/ADLs. L knee sometimes bothers her when she walks funny Prior Treatments and Tests PT for knee helpful Treatment Goals Patient/Caregiver Goals get back hiking, be able to run w/dog, be able ot work Personal Factors Other Personal Factors That May Effect LBP, L knee pain Therapy/Recovery PT-OP-C Subjective Start: 12/13/20 17:30 Freq: Status: Active Protocol: Document 12/24/20 12:45 AMB (Rec: 12/24/20 14:01 AMB [email or web address]) OP-PT Subjective Patient Comments Patient Comments Sandra reports ankle is feelng better. She has gone on some short runs and it's been ok. She does feel it if she runs on uneven terrain. She feels it the most when plantarflexing doing HEP. Mostly in anterior ankle. PT-OP-D Balance Start: 12/13/20 17:30 Freq: Status: Active Protocol: Document 12/14/20 07:29 [facility] (Rec: 12/14/20 08:17 [facility] [id number]) Balance Tests Single Limb Standing Single Limb- Right >30 sec Single Limb- Left 7 sec w/UE and trunk deviation -pain PT-OP-F Manual Assessment Start: 12/13/20 17:30 Freq: Status: Active Protocol: Document 12/14/20 07:29 [facility] (Rec: 12/14/20 08:17 [facility] [id number]) Manual Assessments Soft Tissue Assessment Soft Tissue Mobility Assessment tenderness over ATFL most but also PTFL, MTFL, calf and achilles tightness and tenderness ant joint line and ant tibia PT-OP-G Mobility & Gait Start: 12/13/20 17:30 Freq: Status: Active Protocol: Document 12/14/20 07:29 [facility] (Rec: 12/14/20 08:17 [facility] [id number]) OP Gait Assessment Comments Gait Comments Dec push off L & dec stance time, ER of pelvis w/push off, IR of L>R femur in stance PT-OP-J Posture/Palpation/Skin Start: 12/13/20 17:30 Freq: Status: Active Protocol: Document 12/14/20 07:29 [facility] (Rec: 12/14/20 08:17 [facility] [id number]) Posture Evaluation Shauna Postural Classification System Lumbar Protective Mechanism Left AP 1 Lumbar Protective Mechanism Right AP 3 Lumbar Protective Mechanism Left PA 3 Lumbar Protective Mechanism Right PA 3 Skin Assessment Circumference Measurement R ankle Location malleoli Measurement (Centimeters) 26.7 L ankle Location malleoli Measurement (Centimeters) 28.2 PT-OP-K Range of Motion Start: 12/13/20 17:30 Freq: Status: Active Protocol: Document 12/14/20 07:29 [facility] (Rec: 12/14/20 08:17 [facility] [id number]) Ankle and Foot Goniometric Range of Motion Ankle and Foot Right Active Dorsiflexion with Knee Flexed 9 Dorsiflexion with Knee Extended 8 Plantarflexion 46 Inversion 37 Eversion 24 Left Active Dorsiflexion with Knee Flexed 0 Dorsiflexion with Knee Extended 10 Plantarflexion 37 Inversion 18 Eversion 27 Comments lacking 10 deg to neutral in knee ext position PT-OP-L Special Tests Start: 12/13/20 17:30 Freq: Status: Active Protocol: Document 12/14/20 07:29 [facility] (Rec: 12/14/20 08:17 [facility] [id number]) Special Tests Foot/Ankle Special Tests Talor Tilt Test Results neg Anterior Draw Test Results neg PT-OP-M Strength Start: 12/13/20 17:30 Freq: Status: Active Protocol: Document 12/14/20 07:29 [facility] (Rec: 12/14/20 08:17 [facility] [id number]) Hip Strength Hip Manual Muscle Testing Right Flexion (L2) 5 Normal Extension (S1) 5 Normal Abduction 5 Normal Adduction 5 Normal External Rotation 5 Normal Internal Rotation 5 Normal Left Flexion (L2) 5 Normal Extension (S1) 4+ Good+ Abduction 4+ Good+ Adduction 5 Normal External Rotation 5 Normal Internal Rotation 5 Normal Knee Strength Knee Manual Muscle Testing Right Flexion (S2) 5 Normal Extension (L3) 5 Normal Left Flexion (S2) 5 Normal Extension (L3) 5 Normal Ankle/Foot Strength Ankle and Foot Manual Muscle Testing Right Comments 20 heel raises Left Dorsiflexion (L4) 3+ Fair+ Plantarflexion (S1) 2+ Poor+ Inversion 3+ Fair+ Eversion (S1) 3+ Fair+ Comments pain PT-OP-Q Treatments Start: 12/13/20 17:30 Freq: Status: Active Protocol: Document 12/24/20 12:45 AMB (Rec: 12/24/20 14:01 AMB [email or web address]) Therapeutic Exercises Supine Exercises 1 Supine Exercise Name contract relax into PF Reps/Minutes 2x10 Sitting Exercises ROM Sitting Exercise Name 1. circles 2. DF/PF 3. inversion/eversion Side left Reps/Minutes 10 ea Comments on BAPS board- discomfort with PF Standing Exercises 3 Standing Exercise Name blue foam balance Reps/Minutes 1 minx3 Comments double leg, then eyes closed, then head turns 2 Standing Exercise Name single leg stance Reps/Minutes 30x5 1 Standing Exercise Name EDUARDO calf stretch Reps/Minutes 30x4 Manual Therapy Treatment Soft Tissue Mobilization 1 Body Location calf/anterior ankle Mobilization Type Myofascial Release Intensity/Depth Moderate Body Position Supine Joint Mobilizations Tibiotalar Direction AP Grade III Body Position Supine PT-OP-R Modalities Start: 12/13/20 17:30 Freq: Status: Active Protocol: Document 12/24/20 12:45 AMB (Rec: 12/24/20 14:01 AMB [email or web address]) Hot Pack/Cold Pack Treatment Cold Pack Location ankle Patient Position Sitting Treatment Duration (minutes) 5 Comments given to go ice pack to use at desk as needed PT-OP-T Assessment and Plan Start: 12/13/20 17:30 Freq: Status: Active Protocol: Document 12/24/20 12:45 AMB (Rec: 12/24/20 14:01 AMB [email or web address]) Physical Therapy Assessment Goals activities Short Term Goal (STG) pt will be able to go on 3 mile walks w/o inc in pain in L ankle STG Duration 01/13/21 Research Executive Goal (LTG) Pt will be able to hike w/dog and run w/dog w/o inc L ankle pain LTG Duration 02/13/21 ROM Short Term Goal (STG) Pt will have neutral DF to 0 in knee ext position L and PF to 50 deg. STG Duration 01/13/21 Jail Goal (LTG) Pt will have at least 10 deg DF in knee flex and ext position on L to show improved ROM in order to improve gait mechanics. LTG Duration 02/13/21 strength Short Term Goal (STG) Pt will be indep w/HEP STG Duration 01/13/21 Jail Goal (LTG) Pt will score 5/5 w/all LE MMT to show improved strength to improve ability to return to daily activities. LTG Duration 02/13/21 LEFS Impairment 58/80 Short Term Goal (STG) Pt will score 67/80 to show improved functional ability. STG Duration 01/13/21 Research Executive Goal (LTG) Pt will score 80/80 to show improved functional ability. LTG Duration 02/13/21 Assessment Summary Assessment Sandra did have discomfort with plantarflexion but did well with balance exercises. Encouraged to work to the edge of discomfort with ROM activities and continue icing for swelling management. Physical Therapy Plan Frequency and Duration Frequency of Treatment 1-2x/week Duration of Treatment 2 months Plan of Care Start Date 12/14/20 Plan of Care End Date 02/13/21 Therapeutic Interventions Therapeutic Interventions Aquatic Therapy,Balance Training,Gait Training,Home Exercise Program,Joint Mobilizations,Manual Therapy, Neuromuscular Re-education, Orthotic/Prosthetic Management ,Patient/Caregiver Education, Self-Care/Home Management,Soft Tissue Mobilization,Taping, Therapeutic Activities, Therapeutic Exercises Next Visit Focus/Plan Next Note Type Treatment Note Next Visit Plan review ROM prn, BAPs board, try ankle strengthening, SLS , manual for ankle motion, DL balance on foam
--- NOTE | 2021-01-05 13:49 | PT.OTN ---
Current Diagnoses Pain in left ankle and joints of left foot (01/05/21) Physical Therapy Treatment Note PT-OP-A Visit Information Start: 12/13/20 17:30 Freq: Status: Active Protocol: Document 01/05/21 13:16 [facility] (Rec: 01/05/21 13:48 [facility] [id number]) Out-Patient Physical Therapy Visit Information Visit Information Visit Type Treatment Note Visit Start Time 07:31 Visit Stop Time 08:15 Total Visit Minutes 44 Visit Number 3 Number of GREEN FEED ATTENDANT Visits 0 PT-OP-B Current Condition Start: 12/13/20 17:30 Freq: Status: Active Protocol: Document 12/14/20 07:29 [facility] (Rec: 12/14/20 08:17 [facility] [id number]) Current Condition History of Current Condition Onset Date 3 weeks ago Current Complaints L ankle pain History of Current Condition Pt sprained ankle when walking down [place] when walking w/dog. Had to walk 1 mile back to car. She had Xrays that showed no fracture. She was using scooter for about 1 week to offload. After last week, swelling went down d/t being able to stay home and keep it up. She has been able to go for walks w/ dog on flat surfaces or really mild trails for about 1 mile. Its a little sore after walking and is still a little sore after work when she has to drive down to the office. MOves slower w/ADLs. L knee sometimes bothers her when she walks funny Prior Treatments and Tests PT for knee helpful Treatment Goals Patient/Caregiver Goals get back hiking, be able to run w/dog, be able ot work Personal Factors Other Personal Factors That May Effect LBP, L knee pain Therapy/Recovery PT-OP-C Subjective Start: 12/13/20 17:30 Freq: Status: Active Protocol: Document 01/05/21 13:16 [facility] (Rec: 01/05/21 13:48 [facility] [id number]) OP-PT Subjective Patient Comments Patient Comments Pt reports walking in [place] this weekend she got sore after walking all day. Has done only a little more uneven surfaeces. Notes stability is better but still notes pain in ant ankle and around ATFL. PT-OP-D Balance Start: 12/13/20 17:30 Freq: Status: Active Protocol: Document 12/14/20 07:29 [facility] (Rec: 12/14/20 08:17 [facility] [id number]) Balance Tests Single Limb Standing Single Limb- Right >30 sec Single Limb- Left 7 sec w/UE and trunk deviation -pain PT-OP-F Manual Assessment Start: 12/13/20 17:30 Freq: Status: Active Protocol: Document 12/14/20 07:29 [facility] (Rec: 12/14/20 08:17 [facility] [id number]) Manual Assessments Soft Tissue Assessment Soft Tissue Mobility Assessment tenderness over ATFL most but also PTFL, MTFL, calf and achilles tightness and tenderness ant joint line and ant tibia PT-OP-G Mobility & Gait Start: 12/13/20 17:30 Freq: Status: Active Protocol: Document 12/14/20 07:29 [facility] (Rec: 12/14/20 08:17 [facility] [id number]) OP Gait Assessment Comments Gait Comments Dec push off L & dec stance time, ER of pelvis w/push off, IR of L>R femur in stance PT-OP-J Posture/Palpation/Skin Start: 12/13/20 17:30 Freq: Status: Active Protocol: Document 12/14/20 07:29 [facility] (Rec: 12/14/20 08:17 [facility] [id number]) Posture Evaluation Shauna Postural Classification System Lumbar Protective Mechanism Left AP 1 Lumbar Protective Mechanism Right AP 3 Lumbar Protective Mechanism Left PA 3 Lumbar Protective Mechanism Right PA 3 Skin Assessment Circumference Measurement R ankle Location malleoli Measurement (Centimeters) 26.7 L ankle Location malleoli Measurement (Centimeters) 28.2 PT-OP-K Range of Motion Start: 12/13/20 17:30 Freq: Status: Active Protocol: Document 12/14/20 07:29 [facility] (Rec: 12/14/20 08:17 [facility] [id number]) Ankle and Foot Goniometric Range of Motion Ankle and Foot Right Active Dorsiflexion with Knee Flexed 9 Dorsiflexion with Knee Extended 8 Plantarflexion 46 Inversion 37 Eversion 24 Left Active Dorsiflexion with Knee Flexed 0 Dorsiflexion with Knee Extended 10 Plantarflexion 37 Inversion 18 Eversion 27 Comments lacking 10 deg to neutral in knee ext position PT-OP-L Special Tests Start: 12/13/20 17:30 Freq: Status: Active Protocol: Document 12/14/20 07:29 [facility] (Rec: 12/14/20 08:17 [facility] [id number]) Special Tests Foot/Ankle Special Tests Talor Tilt Test Results neg Anterior Draw Test Results neg PT-OP-M Strength Start: 12/13/20 17:30 Freq: Status: Active Protocol: Document 12/14/20 07:29 [facility] (Rec: 12/14/20 08:17 [facility] [id number]) Hip Strength Hip Manual Muscle Testing Right Flexion (L2) 5 Normal Extension (S1) 5 Normal Abduction 5 Normal Adduction 5 Normal External Rotation 5 Normal Internal Rotation 5 Normal Left Flexion (L2) 5 Normal Extension (S1) 4+ Good+ Abduction 4+ Good+ Adduction 5 Normal External Rotation 5 Normal Internal Rotation 5 Normal Knee Strength Knee Manual Muscle Testing Right Flexion (S2) 5 Normal Extension (L3) 5 Normal Left Flexion (S2) 5 Normal Extension (L3) 5 Normal Ankle/Foot Strength Ankle and Foot Manual Muscle Testing Right Comments 20 heel raises Left Dorsiflexion (L4) 3+ Fair+ Plantarflexion (S1) 2+ Poor+ Inversion 3+ Fair+ Eversion (S1) 3+ Fair+ Comments pain PT-OP-Q Treatments Start: 12/13/20 17:30 Freq: Status: Active Protocol: Document 01/05/21 13:16 [facility] (Rec: 01/05/21 13:48 [facility] [id number]) Gym Equipment Shuttle Balance red clips Comments fwd: WBOS, nBOS, staggered stance B w/head turns side: WBOS w/head turns, NBOS Therapeutic Exercises Sitting Exercises ROM Sitting Exercise Name 1. circles 2. DF/PF 3. inversion/eversion Side left Reps/Minutes 10 ea Comments on BAPS board- lvl 3 Manual Therapy Treatment Soft Tissue Mobilization calf Body Location L Mobilization Type Rolling Intensity/Depth Moderate Body Position Hooklying Joint Mobilizations calcaneus Joint distraction L Tibiotalar Joint AP & PA Taping kt Body Location 2 fans for swelling Type of Tape Kinesio Tape Neuro Re-Education Treatment Balance Activities SLS Comments 1. trials B 2. Y reach trials B PT-OP-R Modalities Start: 12/13/20 17:30 Freq: Status: Active Protocol: Document 12/24/20 12:45 AMB (Rec: 12/24/20 14:01 AMB [email or web address]) Hot Pack/Cold Pack Treatment Cold Pack Location ankle Patient Position Sitting Treatment Duration (minutes) 5 Comments given to go ice pack to use at desk as needed PT-OP-T Assessment and Plan Start: 12/13/20 17:30 Freq: Status: Active Protocol: Document 01/05/21 13:16 [facility] (Rec: 01/05/21 13:48 [facility] [id number]) Physical Therapy Assessment Goals activities Short Term Goal (STG) pt will be able to go on 3 mile walks w/o inc in pain in L ankle STG Duration 01/13/21 Skilled Nursing Goal (LTG) Pt will be able to hike w/dog and run w/dog w/o inc L ankle pain LTG Duration 02/13/21 ROM Short Term Goal (STG) Pt will have neutral DF to 0 in knee ext position L and PF to 50 deg. STG Duration 01/13/21 Automotive Refinisher Goal (LTG) Pt will have at least 10 deg DF in knee flex and ext position on L to show improved ROM in order to improve gait mechanics. LTG Duration 02/13/21 strength Short Term Goal (STG) Pt will be indep w/HEP STG Duration 01/13/21 Automotive Refinisher Goal (LTG) Pt will score 5/5 w/all LE MMT to show improved strength to improve ability to return to daily activities. LTG Duration 02/13/21 LEFS Impairment 58/80 Short Term Goal (STG) Pt will score 67/80 to show improved functional ability. STG Duration 01/13/21 Automotive Refinisher Goal (LTG) Pt will score 80/80 to show improved functional ability. LTG Duration 02/13/21 Assessment Summary Assessment Pt had imrpoved DF and PF after mobs, but is still painful at end range of PF and limited in end range DF. ENcouraged to stretch calves. Improved balance signifcantly as compared to eval. Physical Therapy Plan Frequency and Duration Frequency of Treatment 1-2x/week Duration of Treatment 2 months Plan of Care Start Date 12/14/20 Plan of Care End Date 02/13/21 Next Visit Focus/Plan Next Note Type Treatment Note Next Visit Plan cont to work on dynamic balance, try SLS On foam, mobs to improve ROM w/less pain, assess response to KT tape
--- NOTE | 2021-01-20 09:05 | PT.OTN ---
Current Diagnoses Pain in left ankle and joints of left foot (01/20/21) Physical Therapy Treatment Note PT-OP-A Visit Information Start: 12/13/20 17:30 Freq: Status: Active Protocol: Document 01/20/21 07:28 [facility] (Rec: 01/20/21 09:05 [facility] [id number]) Out-Patient Physical Therapy Visit Information Visit Information Visit Type Treatment Note Visit Start Time 07:30 Visit Stop Time 08:13 Total Visit Minutes 43 Visit Number 4 Number of FRANCHISE SALES DIRECTOR Visits 0 PT-OP-B Current Condition Start: 12/13/20 17:30 Freq: Status: Active Protocol: Document 12/14/20 07:29 [facility] (Rec: 12/14/20 08:17 [facility] [id number]) Current Condition History of Current Condition Onset Date 3 weeks ago Current Complaints L ankle pain History of Current Condition Pt sprained ankle when walking down enbankment when walking w/dog. Had to walk 1 mile back to car. She had Xrays that showed no fracture. She was using scooter for about 1 week to offload. After last week, swelling went down d/t being able to stay home and keep it up. She has been able to go for walks w/ dog on flat surfaces or really mild trails for about 1 mile. Its a little sore after walking and is still a little sore after work when she has to drive down to the office. MOves slower w/ADLs. L knee sometimes bothers her when she walks funny Prior Treatments and Tests PT for knee helpful Treatment Goals Patient/Caregiver Goals get back hiking, be able to run w/dog, be able ot work Personal Factors Other Personal Factors That May Effect LBP, L knee pain Therapy/Recovery PT-OP-C Subjective Start: 12/13/20 17:30 Freq: Status: Active Protocol: Document 01/20/21 07:28 [facility] (Rec: 01/20/21 09:05 [facility] [id number]) OP-PT Subjective Patient Comments Patient Comments Pt reports tape really helped. NOtes last few days feels like it is turning acorner . PT-OP-D Balance Start: 12/13/20 17:30 Freq: Status: Active Protocol: Document 12/14/20 07:29 [facility] (Rec: 12/14/20 08:17 [facility] [id number]) Balance Tests Single Limb Standing Single Limb- Right >30 sec Single Limb- Left 7 sec w/UE and trunk deviation -pain PT-OP-F Manual Assessment Start: 12/13/20 17:30 Freq: Status: Active Protocol: Document 12/14/20 07:29 [facility] (Rec: 12/14/20 08:17 [facility] [id number]) Manual Assessments Soft Tissue Assessment Soft Tissue Mobility Assessment tenderness over ATFL most but also PTFL, MTFL, calf and achilles tightness and tenderness ant joint line and ant tibia PT-OP-G Mobility & Gait Start: 12/13/20 17:30 Freq: Status: Active Protocol: Document 12/14/20 07:29 [facility] (Rec: 12/14/20 08:17 [facility] [id number]) OP Gait Assessment Comments Gait Comments Dec push off L & dec stance time, ER of pelvis w/push off, IR of L>R femur in stance PT-OP-J Posture/Palpation/Skin Start: 12/13/20 17:30 Freq: Status: Active Protocol: Document 12/14/20 07:29 [facility] (Rec: 12/14/20 08:17 [facility] [id number]) Posture Evaluation Shauna Postural Classification System Lumbar Protective Mechanism Left AP 1 Lumbar Protective Mechanism Right AP 3 Lumbar Protective Mechanism Left PA 3 Lumbar Protective Mechanism Right PA 3 Skin Assessment Circumference Measurement R ankle Location malleoli Measurement (Centimeters) 26.7 L ankle Location malleoli Measurement (Centimeters) 28.2 PT-OP-K Range of Motion Start: 12/13/20 17:30 Freq: Status: Active Protocol: Document 12/14/20 07:29 [facility] (Rec: 12/14/20 08:17 [facility] [id number]) Ankle and Foot Goniometric Range of Motion Ankle and Foot Right Active Dorsiflexion with Knee Flexed 9 Dorsiflexion with Knee Extended 8 Plantarflexion 46 Inversion 37 Eversion 24 Left Active Dorsiflexion with Knee Flexed 0 Dorsiflexion with Knee Extended 10 Plantarflexion 37 Inversion 18 Eversion 27 Comments lacking 10 deg to neutral in knee ext position PT-OP-L Special Tests Start: 12/13/20 17:30 Freq: Status: Active Protocol: Document 12/14/20 07:29 [facility] (Rec: 12/14/20 08:17 [facility] [id number]) Special Tests Foot/Ankle Special Tests Talor Tilt Test Results neg Anterior Draw Test Results neg PT-OP-M Strength Start: 12/13/20 17:30 Freq: Status: Active Protocol: Document 12/14/20 07:29 [facility] (Rec: 12/14/20 08:17 [facility] [id number]) Hip Strength Hip Manual Muscle Testing Right Flexion (L2) 5 Normal Extension (S1) 5 Normal Abduction 5 Normal Adduction 5 Normal External Rotation 5 Normal Internal Rotation 5 Normal Left Flexion (L2) 5 Normal Extension (S1) 4+ Good+ Abduction 4+ Good+ Adduction 5 Normal External Rotation 5 Normal Internal Rotation 5 Normal Knee Strength Knee Manual Muscle Testing Right Flexion (S2) 5 Normal Extension (L3) 5 Normal Left Flexion (S2) 5 Normal Extension (L3) 5 Normal Ankle/Foot Strength Ankle and Foot Manual Muscle Testing Right Comments 20 heel raises Left Dorsiflexion (L4) 3+ Fair+ Plantarflexion (S1) 2+ Poor+ Inversion 3+ Fair+ Eversion (S1) 3+ Fair+ Comments pain PT-OP-Q Treatments Start: 12/13/20 17:30 Freq: Status: Active Protocol: Document 01/20/21 07:28 [facility] (Rec: 01/20/21 09:05 [facility] [id number]) Therapeutic Exercises Standing Exercises 3 Standing Exercise Name stair stretch calf Side bilateral Manual Therapy Treatment Joint Mobilizations tibfib Joint PA fib FM calcaneus Joint distraction & gapping & shearing FM L Tibiotalar Joint AP & PA Comments standing AP FM & supine & prone PA FM Taping kt Body Location 2 fans for swelling Type of Tape Kinesio Tape Neuro Re-Education Treatment Balance Activities SLS Comments 1. trials B EC 2. Y reach trials B PT-OP-R Modalities Start: 12/13/20 17:30 Freq: Status: Active Protocol: Document 12/24/20 12:45 [facility] (Rec: 12/24/20 14:01 [facility]B [id number]) Hot Pack/Cold Pack Treatment Cold Pack Location ankle Patient Position Sitting Treatment Duration (minutes) 5 Comments given to go ice pack to use at desk as needed PT-OP-T Assessment and Plan Start: 12/13/20 17:30 Freq: Status: Active Protocol: Document 01/20/21 07:28 [facility] (Rec: 01/20/21 09:05 [facility] [id number]) Physical Therapy Assessment Goals activities Short Term Goal (STG) pt will be able to go on 3 mile walks w/o inc in pain in L ankle STG Duration 01/13/21 [place] Machine Operator Goal (LTG) Pt will be able to hike w/dog and run w/dog w/o inc L ankle pain LTG Duration 02/13/21 ROM Short Term Goal (STG) Pt will have neutral DF to 0 in knee ext position L and PF to 50 deg. STG Duration 01/13/21 [place] Machine Operator Goal (LTG) Pt will have at least 10 deg DF in knee flex and ext position on L to show improved ROM in order to improve gait mechanics. LTG Duration 02/13/21 strength Short Term Goal (STG) Pt will be indep w/HEP STG Duration 01/13/21 Senior Living Goal (LTG) Pt will score 5/5 w/all LE MMT to show improved strength to improve ability to return to daily activities. LTG Duration 02/13/21 LEFS Impairment 58/80 Short Term Goal (STG) Pt will score 67/80 to show improved functional ability. STG Duration 01/13/21 [place] Machine Operator Goal (LTG) Pt will score 80/80 to show improved functional ability. LTG Duration 02/13/21 Assessment Summary Assessment Pt had much improved DF and PF after mobs with less pain. She was able to move to almost equal range of motion of other side after manual. Physical Therapy Plan Frequency and Duration Frequency of Treatment 1-2x/week Duration of Treatment 2 months Plan of Care Start Date 12/14/20 Plan of Care End Date 02/13/21 Next Visit Focus/Plan Next Note Type Treatment Note Next Visit Plan try SLS On foam, mobs to improve ROM w/less pain, cont to KT tape prn
--- NOTE | 2021-01-26 12:17 | PT.OTN ---
Current Diagnoses Pain in left ankle and joints of left foot (01/26/21) Physical Therapy Treatment Note PT-OP-A Visit Information Start: 12/13/20 17:30 Freq: Status: Active Protocol: Document 01/26/21 07:33 [facility] (Rec: 01/26/21 12:17 [facility] [id number]) Out-Patient Physical Therapy Visit Information Visit Information Visit Type Treatment Note Visit Start Time 07:30 Visit Stop Time 08:20 Total Visit Minutes 50 Visit Number 5 Number of CHIEF NUCLEAR MEDICINE TECHNOLOGIST Visits 0 PT-OP-B Current Condition Start: 12/13/20 17:30 Freq: Status: Active Protocol: Document 12/14/20 07:29 [facility] (Rec: 12/14/20 08:17 [facility] [id number]) Current Condition History of Current Condition Onset Date 3 weeks ago Current Complaints L ankle pain History of Current Condition Pt sprained ankle when walking down en[place] when walking w/dog. Had to walk 1 mile back to car. She had Xrays that showed no fracture. She was using scooter for about 1 week to offload. After last week, swelling went down d/t being able to stay home and keep it up. She has been able to go for walks w/ dog on flat surfaces or really mild trails for about 1 mile. Its a little sore after walking and is still a little sore after work when she has to drive down to the office. MOves slower w/ADLs. L knee sometimes bothers her when she walks funny Prior Treatments and Tests PT for knee helpful Treatment Goals Patient/Caregiver Goals get back hiking, be able to run w/dog, be able ot work Personal Factors Other Personal Factors That May Effect LBP, L knee pain Therapy/Recovery PT-OP-C Subjective Start: 12/13/20 17:30 Freq: Status: Active Protocol: Document 01/20/21 07:28 [facility] (Rec: 01/20/21 09:05 [facility] [id number]) OP-PT Subjective Patient Comments Patient Comments Pt reports tape really helped. NOtes last few days feels like it is turning acorner . PT-OP-D Balance Start: 12/13/20 17:30 Freq: Status: Active Protocol: Document 12/14/20 07:29 [facility] (Rec: 12/14/20 08:17 [facility] [id number]) Balance Tests Single Limb Standing Single Limb- Right >30 sec Single Limb- Left 7 sec w/UE and trunk deviation -pain PT-OP-F Manual Assessment Start: 12/13/20 17:30 Freq: Status: Active Protocol: Document 12/14/20 07:29 [facility] (Rec: 12/14/20 08:17 [facility] [id number]) Manual Assessments Soft Tissue Assessment Soft Tissue Mobility Assessment tenderness over ATFL most but also PTFL, MTFL, calf and achilles tightness and tenderness ant joint line and ant tibia PT-OP-G Mobility & Gait Start: 12/13/20 17:30 Freq: Status: Active Protocol: Document 12/14/20 07:29 [facility] (Rec: 12/14/20 08:17 [facility] [id number]) OP Gait Assessment Comments Gait Comments Dec push off L & dec stance time, ER of pelvis w/push off, IR of L>R femur in stance PT-OP-J Posture/Palpation/Skin Start: 12/13/20 17:30 Freq: Status: Active Protocol: Document 12/14/20 07:29 [facility] (Rec: 12/14/20 08:17 [facility] [id number]) Posture Evaluation Shauna Postural Classification System Lumbar Protective Mechanism Left AP 1 Lumbar Protective Mechanism Right AP 3 Lumbar Protective Mechanism Left PA 3 Lumbar Protective Mechanism Right PA 3 Skin Assessment Circumference Measurement R ankle Location malleoli Measurement (Centimeters) 26.7 L ankle Location malleoli Measurement (Centimeters) 28.2 PT-OP-K Range of Motion Start: 12/13/20 17:30 Freq: Status: Active Protocol: Document 01/26/21 07:33 [facility] (Rec: 01/26/21 12:17 [facility] [id number]) Knee Goniometric Range of Motion Knee Left Comments pain both directions Ankle and Foot Goniometric Range of Motion Ankle and Foot Left Active Dorsiflexion with Knee Flexed 11 Dorsiflexion with Knee Extended 0 Plantarflexion 45 Inversion 32 Eversion 23 Comments lacking 10 deg to neutral in knee ext position PT-OP-L Special Tests Start: 12/13/20 17:30 Freq: Status: Active Protocol: Document 12/14/20 07:29 [facility] (Rec: 12/14/20 08:17 [facility] [id number]) Special Tests Foot/Ankle Special Tests Talor Tilt Test Results neg Anterior Draw Test Results neg PT-OP-M Strength Start: 12/13/20 17:30 Freq: Status: Active Protocol: Document 12/14/20 07:29 [facility] (Rec: 12/14/20 08:17 [facility] [id number]) Hip Strength Hip Manual Muscle Testing Right Flexion (L2) 5 Normal Extension (S1) 5 Normal Abduction 5 Normal Adduction 5 Normal External Rotation 5 Normal Internal Rotation 5 Normal Left Flexion (L2) 5 Normal Extension (S1) 4+ Good+ Abduction 4+ Good+ Adduction 5 Normal External Rotation 5 Normal Internal Rotation 5 Normal Knee Strength Knee Manual Muscle Testing Right Flexion (S2) 5 Normal Extension (L3) 5 Normal Left Flexion (S2) 5 Normal Extension (L3) 5 Normal Ankle/Foot Strength Ankle and Foot Manual Muscle Testing Right Comments 20 heel raises Left Dorsiflexion (L4) 3+ Fair+ Plantarflexion (S1) 2+ Poor+ Inversion 3+ Fair+ Eversion (S1) 3+ Fair+ Comments pain PT-OP-Q Treatments Start: 12/13/20 17:30 Freq: Status: Active Protocol: Document 01/26/21 07:33 [facility] (Rec: 01/26/21 12:17 [facility] [id number]) Manual Therapy Treatment Soft Tissue Mobilization calf Body Location L calf & achilles Mobilization Type Rolling Intensity/Depth Moderate Body Position Supine Comments APs Joint Mobilizations tibfib Joint PA fib FM calcaneus Joint distraction & gapping & shearing FM L Tibiotalar Joint AP & PA Direction AP Grade III Body Position Supine Comments standing AP FM & supine & prone PA FM Taping kt Body Location 2 fans for swelling Type of Tape Kinesio Tape Self-Care/Home Management Treatment Education Other Education edu on how to roll out w/ tennis ball, edu for 30 sec holdw/ stretches,e du for icing if on feet a lot PT-OP-R Modalities Start: 12/13/20 17:30 Freq: Status: Active Protocol: Document 12/24/20 12:45 [facility] (Rec: 12/24/20 14:01 AMB [id number]) Hot Pack/Cold Pack Treatment Cold Pack Location ankle Patient Position Sitting Treatment Duration (minutes) 5 Comments given to go ice pack to use at desk as needed PT-OP-T Assessment and Plan Start: 12/13/20 17:30 Freq: Status: Active Protocol: Document 01/26/21 07:33 [facility] (Rec: 01/26/21 12:17 [facility] [id number]) Physical Therapy Assessment Goals activities Short Term Goal (STG) pt will be able to go on 3 mile walks w/o inc in pain in L ankle STG Duration 01/13/21 Snf Goal (LTG) Pt will be able to hike w/dog and run w/dog w/o inc L ankle pain LTG Duration 02/13/21 ROM Short Term Goal (STG) Pt will have neutral DF to 0 in knee ext position L and PF to 50 deg. STG Duration 01/13/21 Snf Goal (LTG) Pt will have at least 10 deg DF in knee flex and ext position on L to show improved ROM in order to improve gait mechanics. LTG Duration 02/13/21 strength Short Term Goal (STG) Pt will be indep w/HEP STG Duration 01/13/21 Meat Cutting Block Repairer Goal (LTG) Pt will score 5/5 w/all LE MMT to show improved strength to improve ability to return to daily activities. LTG Duration 02/13/21 LEFS Impairment 58/80 Short Term Goal (STG) Pt will score 67/80 to show improved functional ability. STG Duration 01/13/21 Snf Goal (LTG) Pt will score 80/80 to show improved functional ability. LTG Duration 02/13/21 Assessment Summary Assessment Pt is improving w/ROM and had imrpoved DF with manual treatment with less pain. Her calf tightness of L likely affects her abilityt o stand for extended time as ROM is very differen t between knee bent and knee straight positions. Physical Therapy Plan Frequency and Duration Frequency of Treatment 1-2x/week Duration of Treatment 2 months Plan of Care Start Date 12/14/20 Plan of Care End Date 02/13/21 Next Visit Focus/Plan Next Note Type Treatment Note Next Visit Plan try SLS On foam, mobs to improve ROM w/less pain, cont to KT tape prn
--- NOTE | 2021-01-31 09:47 | PT.OTN ---
Current Diagnoses Pain in left ankle and joints of left foot (01/31/21) Physical Therapy Treatment Note PT-OP-A Visit Information Start: 12/13/20 17:30 Freq: Status: Active Protocol: Document 01/31/21 09:03 [facility] (Rec: 01/31/21 09:06 [facility] [id number]) Out-Patient Physical Therapy Visit Information Visit Information Visit Type Treatment Note Visit Start Time 08:18 Visit Stop Time 08:58 Total Visit Minutes 40 Visit Number [address] MACHINE RUNNER Visits 0 PT-OP-B Current Condition Start: 12/13/20 17:30 Freq: Status: Active Protocol: Document 12/14/20 07:29 [facility] (Rec: 12/14/20 08:17 [facility] [id number]) Current Condition History of Current Condition Onset Date 3 weeks ago Current Complaints L ankle pain History of Current Condition Pt sprained ankle when walking down [place] when walking w/dog. Had to walk 1 mile back to car. She had Xrays that showed no fracture. She was using scooter for about 1 week to offload. After last week, swelling went down d/t being able to stay home and keep it up. She has been able to go for walks w/ dog on flat surfaces or really mild trails for about 1 mile. Its a little sore after walking and is still a little sore after work when she has to drive down to the office. MOves slower w/ADLs. L knee sometimes bothers her when she walks funny Prior Treatments and Tests PT for knee helpful Treatment Goals Patient/Caregiver Goals get back hiking, be able to run w/dog, be able ot work Personal Factors Other Personal Factors That May Effect LBP, L knee pain Therapy/Recovery PT-OP-C Subjective Start: 12/13/20 17:30 Freq: Status: Active Protocol: Document 01/31/21 09:03 [facility] (Rec: 01/31/21 09:06 [facility] [id number]) OP-PT Subjective Patient Comments Patient Comments Pt reprots ankle hasn't really bothered her much since last session PT-OP-D Balance Start: 12/13/20 17:30 Freq: Status: Active Protocol: Document 12/14/20 07:29 [facility] (Rec: 12/14/20 08:17 [facility] [id number]) Balance Tests Single Limb Standing Single Limb- Right >30 sec Single Limb- Left 7 sec w/UE and trunk deviation -pain PT-OP-F Manual Assessment Start: 12/13/20 17:30 Freq: Status: Active Protocol: Document 12/14/20 07:29 [facility] (Rec: 12/14/20 08:17 [facility] [id number]) Manual Assessments Soft Tissue Assessment Soft Tissue Mobility Assessment tenderness over ATFL most but also PTFL, MTFL, calf and achilles tightness and tenderness ant joint line and ant tibia PT-OP-G Mobility & Gait Start: 12/13/20 17:30 Freq: Status: Active Protocol: Document 12/14/20 07:29 [facility] (Rec: 12/14/20 08:17 [facility] [id number]) OP Gait Assessment Comments Gait Comments Dec push off L & dec stance time, ER of pelvis w/push off, IR of L>R femur in stance PT-OP-J Posture/Palpation/Skin Start: 12/13/20 17:30 Freq: Status: Active Protocol: Document 12/14/20 07:29 [facility] (Rec: 12/14/20 08:17 [facility] [id number]) Posture Evaluation Shauna Postural Classification System Lumbar Protective Mechanism Left AP 1 Lumbar Protective Mechanism Right AP 3 Lumbar Protective Mechanism Left PA 3 Lumbar Protective Mechanism Right PA 3 Skin Assessment Circumference Measurement R ankle Location malleoli Measurement (Centimeters) 26.7 L ankle Location malleoli Measurement (Centimeters) 28.2 PT-OP-K Range of Motion Start: 12/13/20 17:30 Freq: Status: Active Protocol: Document 01/26/21 07:33 [facility] (Rec: 01/26/21 12:17 [facility] [id number]) Knee Goniometric Range of Motion Knee Left Comments pain both directions Ankle and Foot Goniometric Range of Motion Ankle and Foot Left Active Dorsiflexion with Knee Flexed 11 Dorsiflexion with Knee Extended 0 Plantarflexion 45 Inversion 32 Eversion 23 Comments lacking 10 deg to neutral in knee ext position PT-OP-L Special Tests Start: 12/13/20 17:30 Freq: Status: Active Protocol: Document 12/14/20 07:29 [facility] (Rec: 12/14/20 08:17 [facility] [id number]) Special Tests Foot/Ankle Special Tests Talor Tilt Test Results neg Anterior Draw Test Results neg PT-OP-M Strength Start: 12/13/20 17:30 Freq: Status: Active Protocol: Document 12/14/20 07:29 [facility] (Rec: 12/14/20 08:17 [facility] [id number]) Hip Strength Hip Manual Muscle Testing Right Flexion (L2) 5 Normal Extension (S1) 5 Normal Abduction 5 Normal Adduction 5 Normal External Rotation 5 Normal Internal Rotation 5 Normal Left Flexion (L2) 5 Normal Extension (S1) 4+ Good+ Abduction 4+ Good+ Adduction 5 Normal External Rotation 5 Normal Internal Rotation 5 Normal Knee Strength Knee Manual Muscle Testing Right Flexion (S2) 5 Normal Extension (L3) 5 Normal Left Flexion (S2) 5 Normal Extension (L3) 5 Normal Ankle/Foot Strength Ankle and Foot Manual Muscle Testing Right Comments 20 heel raises Left Dorsiflexion (L4) 3+ Fair+ Plantarflexion (S1) 2+ Poor+ Inversion 3+ Fair+ Eversion (S1) 3+ Fair+ Comments pain PT-OP-Q Treatments Start: 12/13/20 17:30 Freq: Status: Active Protocol: Document 01/31/21 09:03 [facility] (Rec: 01/31/21 09:06 [facility] [id number]) Manual Therapy Treatment Soft Tissue Mobilization calf Body Location L calf & achilles Mobilization Type Rolling Intensity/Depth Moderate Body Position Supine Comments APs Joint Mobilizations cuneiforms Joint gapping FM tibfib Joint PA fib FM calcaneus Joint distraction & gapping & shearing FM L Tibiotalar Joint AP & PA Direction AP Grade III Body Position Supine Comments standing AP FM & supine & prone PA FM Taping kt Body Location 2 fans for swelling Type of Tape Kinesio Tape PT-OP-R Modalities Start: 12/13/20 17:30 Freq: Status: Active Protocol: Document 01/31/21 09:03 [facility] (Rec: 01/31/21 09:06 [facility] [id number]) Infrared Treatment Treatment L ankle Duration (Minutes) 1 Program or Protocal chronic ligament sprain mod Comments ATFL PT-OP-T Assessment and Plan Start: 12/13/20 17:30 Freq: Status: Active Protocol: Document 01/31/21 09:03 [facility] (Rec: 01/31/21 09:06 [facility] [id number]) Physical Therapy Assessment Goals activities Short Term Goal (STG) pt will be able to go on 3 mile walks w/o inc in pain in L ankle STG Duration 01/13/21 Prison Goal (LTG) Pt will be able to hike w/dog and run w/dog w/o inc L ankle pain LTG Duration 02/13/21 ROM Short Term Goal (STG) Pt will have neutral DF to 0 in knee ext position L and PF to 50 deg. STG Duration 01/13/21 Prison Goal (LTG) Pt will have at least 10 deg DF in knee flex and ext position on L to show improved ROM in order to improve gait mechanics. LTG Duration 02/13/21 strength Short Term Goal (STG) Pt will be indep w/HEP STG Duration 01/13/21 Insurance Manager Goal (LTG) Pt will score 5/5 w/all LE MMT to show improved strength to improve ability to return to daily activities. LTG Duration 02/13/21 LEFS Impairment 58/80 Short Term Goal (STG) Pt will score 67/80 to show improved functional ability. STG Duration 01/13/21 Insurance Manager Goal (LTG) Pt will score 80/80 to show improved functional ability. LTG Duration 02/13/21 Assessment Summary Assessment Pt is doing well with ROM. She ahd 3.75 in to wall w/knee to wall testing. She is improving with L ankle ROM and has shown functional improvements also. Dec calf stiffness w/knee straight into DF Physical Therapy Plan Frequency and Duration Frequency of Treatment 1-2x/week Duration of Treatment 2 months Plan of Care Start Date 12/14/20 Plan of Care End Date 02/13/21 Next Visit Focus/Plan Next Note Type Progress Note Next Visit Plan try SLS On foam, mobs to improve ROM w/less pain, cont to KT tape prn
--- NOTE | 2021-02-09 08:18 | PT.OTN ---
Current Diagnoses Pain in left ankle and joints of left foot (02/09/21) Physical Therapy Treatment Note PT-OP-A Visit Information Start: 12/13/20 17:30 Freq: Status: Active Protocol: Document 02/09/21 07:30 [facility] (Rec: 02/09/21 08:18 [facility] [id number]) Out-Patient Physical Therapy Visit Information Visit Information Visit Type Treatment Note Visit Start Time 07:30 Visit Stop Time 08:13 Total Visit Minutes 43 Visit Number 7 Number of INSPECTOR WIRE ROPE Visits 0 PT-OP-B Current Condition Start: 12/13/20 17:30 Freq: Status: Active Protocol: Document 12/14/20 07:29 [facility] (Rec: 12/14/20 08:17 [facility] [id number]) Current Condition History of Current Condition Onset Date 3 weeks ago Current Complaints L ankle pain History of Current Condition Pt sprained ankle when walking down enbankment when walking w/dog. Had to walk 1 mile back to car. She had Xrays that showed no fracture. She was using scooter for about 1 week to offload. After last week, swelling went down d/t being able to stay home and keep it up. She has been able to go for walks w/ dog on flat surfaces or really mild trails for about 1 mile. Its a little sore after walking and is still a little sore after work when she has to drive down to the office. MOves slower w/ADLs. L knee sometimes bothers her when she walks funny Prior Treatments and Tests PT for knee helpful Treatment Goals Patient/Caregiver Goals get back hiking, be able to run w/dog, be able ot work Personal Factors Other Personal Factors That May Effect LBP, L knee pain Therapy/Recovery PT-OP-C Subjective Start: 12/13/20 17:30 Freq: Status: Active Protocol: Document 02/09/21 07:30 [facility] (Rec: 02/09/21 08:18 [facility] [id number]) OP-PT Subjective Patient Comments Patient Comments Pt reports improvement w/ankle . Less bad pain days PT-OP-D Balance Start: 12/13/20 17:30 Freq: Status: Active Protocol: Document 12/14/20 07:29 [facility] (Rec: 12/14/20 08:17 [facility] [id number]) Balance Tests Single Limb Standing Single Limb- Right >30 sec Single Limb- Left 7 sec w/UE and trunk deviation -pain PT-OP-F Manual Assessment Start: 12/13/20 17:30 Freq: Status: Active Protocol: Document 12/14/20 07:29 [facility] (Rec: 12/14/20 08:17 [facility] [id number]) Manual Assessments Soft Tissue Assessment Soft Tissue Mobility Assessment tenderness over ATFL most but also PTFL, MTFL, calf and achilles tightness and tenderness ant joint line and ant tibia PT-OP-G Mobility & Gait Start: 12/13/20 17:30 Freq: Status: Active Protocol: Document 12/14/20 07:29 [facility] (Rec: 12/14/20 08:17 [facility] [id number]) OP Gait Assessment Comments Gait Comments Dec push off L & dec stance time, ER of pelvis w/push off, IR of L>R femur in stance PT-OP-J Posture/Palpation/Skin Start: 12/13/20 17:30 Freq: Status: Active Protocol: Document 12/14/20 07:29 [facility] (Rec: 12/14/20 08:17 [facility] [id number]) Posture Evaluation Shauna Postural Classification System Lumbar Protective Mechanism Left AP 1 Lumbar Protective Mechanism Right AP 3 Lumbar Protective Mechanism Left PA 3 Lumbar Protective Mechanism Right PA 3 Skin Assessment Circumference Measurement R ankle Location malleoli Measurement (Centimeters) 26.7 L ankle Location malleoli Measurement (Centimeters) 28.2 PT-OP-K Range of Motion Start: 12/13/20 17:30 Freq: Status: Active Protocol: Document 02/09/21 07:30 [facility] (Rec: 02/09/21 08:18 [facility] [id number]) Ankle and Foot Goniometric Range of Motion Ankle and Foot Left Active Dorsiflexion with Knee Flexed 2 Dorsiflexion with Knee Extended 0 Plantarflexion 52 Inversion 30 Eversion 25 PT-OP-L Special Tests Start: 12/13/20 17:30 Freq: Status: Active Protocol: Document 12/14/20 07:29 [facility] (Rec: 12/14/20 08:17 [facility] [id number]) Special Tests Foot/Ankle Special Tests Talor Tilt Test Results neg Anterior Draw Test Results neg PT-OP-M Strength Start: 12/13/20 17:30 Freq: Status: Active Protocol: Document 02/09/21 07:30 [facility] (Rec: 02/09/21 08:18 [facility] [id number]) Hip Strength Hip Manual Muscle Testing Right Flexion (L2) 5 Normal Extension (S1) 5 Normal Abduction 5 Normal Adduction 5 Normal External Rotation 5 Normal Internal Rotation 5 Normal Left Flexion (L2) 5 Normal Extension (S1) 4+ Good+ Abduction 4+ Good+ Adduction 5 Normal External Rotation 5 Normal Internal Rotation 5 Normal Knee Strength Knee Manual Muscle Testing Right Flexion (S2) 5 Normal Extension (L3) 5 Normal Left Flexion (S2) 5 Normal Extension (L3) 5 Normal Ankle/Foot Strength Ankle and Foot Manual Muscle Testing Right Dorsiflexion (L4) 5 Normal Plantarflexion (S1) 5 Normal Inversion 5 Normal Eversion (S1) 5 Normal Comments 20 heel raises Left Dorsiflexion (L4) 5 Normal Plantarflexion (S1) 5 Normal Inversion 5 Normal Eversion (S1) 5 Normal Comments 20 heel raises- discomfort in ankle PT-OP-Q Treatments Start: 12/13/20 17:30 Freq: Status: Active Protocol: Document 02/09/21 07:30 [facility] (Rec: 02/09/21 08:18 [facility] [id number]) Manual Therapy Treatment Soft Tissue Mobilization calf Body Location L calf & achilles Mobilization Type Rolling Intensity/Depth Moderate Body Position Supine Comments APs Joint Mobilizations Tibiotalar Joint AP FM Grade III Body Position Supine Neuro Re-Education Treatment Balance Activities bosu Comments 1. step up x10 2. balance DL blue and black surfaces 3. august x10 4. min lunge x10 B 5. mini squat black surface SLS Comments on blue foam Self-Care/Home Management Treatment Education Other Education edu how to self tape with PT instructing throughout PT-OP-R Modalities Start: 12/13/20 17:30 Freq: Status: Active Protocol: Document 01/31/21 09:03 [facility] (Rec: 01/31/21 09:06 [facility] [id number]) Infrared Treatment Treatment L ankle Duration (Minutes) 1 Program or Protocal chronic ligament sprain mod Comments ATFL PT-OP-T Assessment and Plan Start: 12/13/20 17:30 Freq: Status: Active Protocol: Document 02/09/21 07:30 [facility] (Rec: 02/09/21 08:18 [facility] [id number]) Physical Therapy Assessment Goals activities Short Term Goal (STG) pt will be able to go on 3 mile walks w/o inc in pain in L ankle STG Duration achieved Hand Box Coverer Goal (LTG) Pt will be able to hike w/dog and run w/dog w/o inc L ankle pain 02/09-has not tried LTG Duration 04/11/21 ROM Short Term Goal (STG) Pt will have neutral DF to 0 in knee ext position L and PF to 50 deg. STG Duration achieved Hand Box Coverer Goal (LTG) Pt will have at least 10 deg DF in knee flex and ext position on L to show improved ROM in order to improve gait mechanics. LTG Duration 04/11/21 strength Short Term Goal (STG) Pt will be indep w/HEP STG Duration achieved Fdc Goal (LTG) Pt will score 5/5 w/all LE MMT to show improved strength to improve ability to return to daily activities. LTG Duration achieved LEFS Impairment 58/80 Short Term Goal (STG) Pt will score 67/80 to show improved functional ability. STG Duration achieved to 75/80 Hand Box Coverer Goal (LTG) Pt will score 80/80 to show improved functional ability. LTG Duration 04/11/21 Assessment Summary Assessment Pt has significant progress w/ ROM today and showed improved DF and PF to more functional limits. Strength is good but pt does feel unstable w/SL heel raise and w/dynamic activity on unstable surfaces. Cont PT to work on this and full return to acitvity Physical Therapy Plan Frequency and Duration Frequency of Treatment 1x/Week Duration of Treatment 2 months Plan of Care Start Date 02/09/21 Plan of Care End Date 04/11/21 Therapeutic Interventions Therapeutic Interventions Aquatic Therapy,Balance Training,Gait Training,Home Exercise Program,Joint Mobilizations,Manual Therapy, Neuromuscular Re-education, Orthotic/Prosthetic Management ,Patient/Caregiver Education, Self-Care/Home Management,Soft Tissue Mobilization,Taping, Therapeutic Activities, Therapeutic Exercises Modalities Cold Pack/Ice Massage,Electric Stimulation,Hot Packs, Infrared Therapy,Iontophoresis ,Ultrasound Next Visit Focus/Plan Next Note Type Treatment Note Next Visit Plan cont to progress activities of dynamic balance on unstable surfaces
--- NOTE | 2021-02-09 08:18 | PT.OPPOC ---
Physical, Occupational & Speech Therapy At [facility] Current Diagnoses Pain in left ankle and joints of left foot (02/09/21) Visit Care Team Role Provider Type Augie Geronimo MD Family Provider Physician Primary Care Provider Specialty: Internal Medicine Address: [address] [place] [address], [address], [place], [address] Email: [email or web address] ERICH Gomez Attending Provider Advanced Pickling Solution Maker Referring Provider Specialty: Medical Address: [address] [place] [address], [id number] Email: [email or web address] Plan Of Care PT-OP-T Assessment and Plan Start: 12/13/20 17:30 Freq: Status: Active Protocol: Document 02/09/21 07:30 [facility] (Rec: 02/09/21 08:18 [facility] [id number]) Physical Therapy Assessment Goals activities Short Term Goal (STG) pt will be able to go on 3 mile walks w/o inc in pain in L ankle STG Duration achieved Alf Goal (LTG) Pt will be able to hike w/dog and run w/dog w/o inc L ankle pain 02/09-has not tried LTG Duration 04/11/21 ROM Short Term Goal (STG) Pt will have neutral DF to 0 in knee ext position L and PF to 50 deg. STG Duration achieved Alf Goal (LTG) Pt will have at least 10 deg DF in knee flex and ext position on L to show improved ROM in order to improve gait mechanics. LTG Duration 04/11/21 strength Short Term Goal (STG) Pt will be indep w/HEP STG Duration achieved Alf Goal (LTG) Pt will score 5/5 w/all LE MMT to show improved strength to improve ability to return to daily activities. LTG Duration achieved LEFS Impairment 58/80 Short Term Goal (STG) Pt will score 67/80 to show improved functional ability. STG Duration achieved to 75/80 Alf Goal (LTG) Pt will score 80/80 to show improved functional ability. LTG Duration 04/11/21 Assessment Summary Assessment Pt has significant progress w/ ROM today and showed improved DF and PF to more functional limits. Strength is good but pt does feel unstable w/SL heel raise and w/dynamic activity on unstable surfaces. Cont PT to work on this and full return to acitvity Physical Therapy Plan Frequency and Duration Frequency of Treatment 1x/Week Duration of Treatment 2 months Plan of Care Start Date 02/09/21 Plan of Care End Date 04/11/21 Therapeutic Interventions Therapeutic Interventions Aquatic Therapy,Balance Training,Gait Training,Home Exercise Program,Joint Mobilizations,Manual Therapy, Neuromuscular Re-education, Orthotic/Prosthetic Management ,Patient/Caregiver Education, Self-Care/Home Management,Soft Tissue Mobilization,Taping, Therapeutic Activities, Therapeutic Exercises Modalities Cold Pack/Ice Massage,Electric Stimulation,Hot Packs, Infrared Therapy,Iontophoresis ,Ultrasound Next Visit Focus/Plan Next Note Type Treatment Note Next Visit Plan cont to progress activities of dynamic balance on unstable surfaces Plan of Care Dates Plan of Care Start Date 02/09/21 Plan of Care End Date 04/11/21 Electronically Signed by: Joanna Melton, PT 02/09/21 0818 Please Sign and Return: I have reviewed this Plan of Care and certify that the skilled therapy services above are required to meet the patient?s needs. Physician Signature Date Printed Name and Credentials Clinical Instructor Signature Printed Name and Credentials
--- NOTE | 2021-03-08 08:35 | PT.OTN ---
Current Diagnoses Pain in left ankle and joints of left foot (03/08/21) Physical Therapy Treatment Note PT-OP-A Visit Information Start: 12/13/20 17:30 Freq: Status: Active Protocol: Document 03/08/21 07:51 [facility] (Rec: 03/08/21 08:35 [facility] [id number]) Out-Patient Physical Therapy Visit Information Visit Information Visit Type Discharge Summary Visit Start Time 07:30 Visit Stop Time 08:15 Total Visit Minutes 45 Visit Number 8 Number of MERGERS AND ACQUISITIONS ATTORNEY Visits 0 PT-OP-B Current Condition Start: 12/13/20 17:30 Freq: Status: Active Protocol: Document 12/14/20 07:29 [facility] (Rec: 12/14/20 08:17 [facility] [id number]) Current Condition History of Current Condition Onset Date 3 weeks ago Current Complaints L ankle pain History of Current Condition Pt sprained ankle when walking down [place] when walking w/dog. Had to walk 1 mile back to car. She had Xrays that showed no fracture. She was using scooter for about 1 week to offload. After last week, swelling went down d/t being able to stay home and keep it up. She has been able to go for walks w/ dog on flat surfaces or really mild trails for about 1 mile. Its a little sore after walking and is still a little sore after work when she has to drive down to the office. MOves slower w/ADLs. L knee sometimes bothers her when she walks funny Prior Treatments and Tests PT for knee helpful Treatment Goals Patient/Caregiver Goals get back hiking, be able to run w/dog, be able ot work Personal Factors Other Personal Factors That May Effect LBP, L knee pain Therapy/Recovery PT-OP-C Subjective Start: 12/13/20 17:30 Freq: Status: Active Protocol: Document 03/08/21 07:51 [facility] (Rec: 03/08/21 08:35 [facility] [id number]) OP-PT Subjective Patient Comments Patient Comments Pt reports last weekw as really swollen after watching grandson for a day. Unsure why . Prior to that was doing great w/o issues. After taping , swelling dec over a couple days and she has been beteter. PT-OP-D Balance Start: 12/13/20 17:30 Freq: Status: Active Protocol: Document 12/14/20 07:29 [facility] (Rec: 12/14/20 08:17 [facility] [id number]) Balance Tests Single Limb Standing Single Limb- Right >30 sec Single Limb- Left 7 sec w/UE and trunk deviation -pain PT-OP-F Manual Assessment Start: 12/13/20 17:30 Freq: Status: Active Protocol: Document 12/14/20 07:29 [facility] (Rec: 12/14/20 08:17 [facility] [id number]) Manual Assessments Soft Tissue Assessment Soft Tissue Mobility Assessment tenderness over ATFL most but also PTFL, MTFL, calf and achilles tightness and tenderness ant joint line and ant tibia PT-OP-G Mobility & Gait Start: 12/13/20 17:30 Freq: Status: Active Protocol: Document 12/14/20 07:29 [facility] (Rec: 12/14/20 08:17 [facility] [id number]) OP Gait Assessment Comments Gait Comments Dec push off L & dec stance time, ER of pelvis w/push off, IR of L>R femur in stance PT-OP-J Posture/Palpation/Skin Start: 12/13/20 17:30 Freq: Status: Active Protocol: Document 12/14/20 07:29 [facility] (Rec: 12/14/20 08:17 [facility] [id number]) Posture Evaluation Shauna Postural Classification System Lumbar Protective Mechanism Left AP 1 Lumbar Protective Mechanism Right AP 3 Lumbar Protective Mechanism Left PA 3 Lumbar Protective Mechanism Right PA 3 Skin Assessment Circumference Measurement R ankle Location malleoli Measurement (Centimeters) 26.7 L ankle Location malleoli Measurement (Centimeters) 28.2 PT-OP-K Range of Motion Start: 12/13/20 17:30 Freq: Status: Active Protocol: Document 03/08/21 07:51 [facility] (Rec: 03/08/21 08:35 [facility] [id number]) Ankle and Foot Goniometric Range of Motion Ankle and Foot Left Active Dorsiflexion with Knee Extended 3 PT-OP-L Special Tests Start: 12/13/20 17:30 Freq: Status: Active Protocol: Document 12/14/20 07:29 [facility] (Rec: 12/14/20 08:17 [facility] [id number]) Special Tests Foot/Ankle Special Tests Talor Tilt Test Results neg Anterior Draw Test Results neg PT-OP-M Strength Start: 12/13/20 17:30 Freq: Status: Active Protocol: Document 03/08/21 07:51 [facility] (Rec: 03/08/21 08:35 [facility] [id number]) Hip Strength Hip Manual Muscle Testing Right Flexion (L2) 5 Normal Extension (S1) 5 Normal Abduction 5 Normal Adduction 5 Normal External Rotation 5 Normal Internal Rotation 5 Normal Left Flexion (L2) 5 Normal Extension (S1) 5 Normal Abduction 5 Normal Adduction 5 Normal External Rotation 5 Normal Internal Rotation 5 Normal PT-OP-Q Treatments Start: 12/13/20 17:30 Freq: Status: Active Protocol: Document 03/08/21 07:51 [facility] (Rec: 03/08/21 08:35 [facility] [id number]) Therapeutic Exercises Standing Exercises 3 Standing Exercise Name squats Side bilateral Reps/Minutes 15 Manual Therapy Treatment Soft Tissue Mobilization calf Body Location L calf & achilles Mobilization Type Rolling Intensity/Depth Moderate Body Position Supine Comments APs Joint Mobilizations calcaneus Joint distraction Tibiotalar Joint AP & distraction FM Neuro Re-Education Treatment Balance Activities foam Comments 1. SLS B 2. step up august B 3. lunge onto x8 B 4. squat 2x10 cues for form SLS Comments 1.ground working on hip under torso 2. EC PT-OP-R Modalities Start: 12/13/20 17:30 Freq: Status: Active Protocol: Document 01/31/21 09:03 [facility] (Rec: 01/31/21 09:06 [facility] [id number]) Infrared Treatment Treatment L ankle Duration (Minutes) 1 Program or Protocal chronic ligament sprain mod Comments ATFL PT-OP-T Assessment and Plan Start: 12/13/20 17:30 Freq: Status: Active Protocol: Document 03/08/21 07:51 [facility] (Rec: 03/08/21 08:35 [facility] [id number]) Physical Therapy Assessment Goals activities Short Term Goal (STG) pt will be able to go on 3 mile walks w/o inc in pain in L ankle STG Duration achieved Surveillance Specialist Goal (LTG) Pt will be able to hike w/dog and run w/dog w/o inc L ankle pain 02/09-has not tried LTG Duration achieved ROM Short Term Goal (STG) Pt will have neutral DF to 0 in knee ext position L and PF to 50 deg. STG Duration achieved Senior Living Goal (LTG) Pt will have at least 10 deg DF in knee flex and ext position on L to show improved ROM in order to improve gait mechanics. LTG Duration 3 deg in knee ext position d/t calf tightness strength Short Term Goal (STG) Pt will be indep w/HEP STG Duration achieved Senior Living Goal (LTG) Pt will score 5/5 w/all LE MMT to show improved strength to improve ability to return to daily activities. LTG Duration achieved LEFS Impairment 58/80 Short Term Goal (STG) Pt will score 67/80 to show improved functional ability. STG Duration achieved to 75/80 Surveillance Specialist Goal (LTG) Pt will score 80/80 to show improved functional ability. LTG Duration 79/80 Assessment Summary Assessment Pt has improved significantly w/PT with ROM, strength, balance and return to more typical functional activities. She has not done as much hiking d/t time and busy w/ other things but the hiking she has done has not bothered her. Occ small pinch ant when really low squat and one instance of swelling when playing with her grandson all day which taping helped. She is DC at this time to work on HEP and encouraged to do exercises consistantly to cont to dec pain and imrpove funcitonal abiltiy. Physical Therapy Plan Discharge Physical Therapy Discharge Reasons Goals Met
== END 2021-03-08 09:01 | disposition home or self-care (01) ==
LOC: PHYS 07:30
PROVIDERS: Family Provider Student in an Organized Health Care Education/Training Program; PCP Student in an Organized Health Care Education/Training Program; Referring Provider Registered Nurse; Visit Provider Registered Nurse
DX: M25.572 Pain in left ankle and joints of left foot (principal)
CPT/HCPCS: 97110; 97112; 97140; 97161; 97535

== ENCOUNTER → 2021-04-21 17:37 | Outpatient (CLI) | payer OTHER, SELFPAY | PROVIDERS: Family Provider Student in an Organized Health Care Education/Training Program; PCP Student in an Organized Health Care Education/Training Program; Referring Provider Internal Medicine; Visit Provider Internal Medicine | DX: Z23 Encounter for immunization (principal) | CPT/HCPCS: 90471; 90686 ==

== ENCOUNTER → 2022-03-31 10:17 | Outpatient (CLI) | payer OTHER, SELFPAY | PROVIDERS: Family Provider Student in an Organized Health Care Education/Training Program; PCP Student in an Organized Health Care Education/Training Program; Referring Provider Internal Medicine; Visit Provider Internal Medicine | DX: Z23 Encounter for immunization (principal) | CPT/HCPCS: 90471; 90686 ==

== ENCOUNTER → 2023-05-18 08:02 | Outpatient (CLI) | payer BC, SELFPAY ==
--- NOTE | 2023-05-18 | DI.MG.S_ITS ---
BILATERAL DIGITAL SCREENING MAMMOGRAM 3D/2D WITH CAD: 05/18/2023 CLINICAL: Routine screening. Family history of breast cancer. Comparison is made to exams dated: 12/24/2020 mammogram, 10/31/2018 mammogram - [facility], and 11/16/2015 mammogram - [facility]. There are scattered areas of fibroglandular density in both breasts (category b / 25%-50% glandular tissue). Current study was also evaluated with a Computer Aided Detection (CAD) system. No significant masses, calcifications, or other findings are seen in either breast. IMPRESSION: NEGATIVE There is no mammographic evidence of malignancy. A 1 year screening mammogram is recommended. Based on the Tyrer Cuzick model (a risk assessment model) the patient's lifetime risk is 5.3% and her 10 year risk is 1.2%. According to the ACR, ACS, and NCCN guidelines, an annual breast MRI exam along with mammogram is recommended if the patient's lifetime risk is 20% or greater. This exam was interpreted at Station ID: [id number]. NOTE: For mammograms, a report in lay terms will be sent to the patient. Approximately 15% of breast malignancies will not be visualized mammographically. In the management of a palpable breast mass, a negative mammogram must not discourage biopsy of a clinically suspicious lesion. Electronically Signed By: aVlery Wallace M.D., PH.D cornelius/mireya:05/18/2023 13:59:32 letter sent: Normal Exam ACR BI-RADS Category 1: Negative [id number]
== END ==
PROVIDERS: Family Provider Student in an Organized Health Care Education/Training Program; PCP Family Medicine; Referring Provider Family Medicine; Visit Provider Family Medicine
DX: Z12.31 Encounter for screening mammogram for malignant neoplasm of breast (principal); Z80.3 Family history of malignant neoplasm of breast
CPT/HCPCS: 77063; 77067

== ENCOUNTER → 2023-08-29 15:56 | Outpatient (CLI) | payer BC, SELFPAY ==
--- NOTE | 2023-08-29 15:57 | DI.US.S_ITS ---
PROCEDURE: US PELVIC COMPLETE INDICATIONS: PAIN; HX ENDOMETRIOSIS, COMPLETE HYSTERO TECHNIQUE: Real-time scanning was performed of the pelvic organs, with image documentation. Additional endovaginal scanning was necessary due to incomplete visualization of the adnexal and endometrial structures by transabdominal scanning. COMPARISON: None. FINDINGS: Uterus: Surgically absent. Ovaries: Surgically absent. Other: No pathologic free abdominal or pelvic fluid. IMPRESSION: Hysterectomy and bilateral salpingo oophorectomy. No sonographic abnormality. We strive to produce accurate, complete, and clear reports of imaging services. To assist us in improving patient care, this report was composed using standard report templates and voice recognition software. Therefore, it may contain abnormal punctuation, insertions and/or omissions. Occasional wrong-word or sound-alike substitutions may occur. Though we review the report and make efforts to correct it, we do recommend that the report be read carefully in proper context to recognize any text inaccuracies. Dictated by: Michael Reeves M.D. on 08/29/2023 at 17:04 Approved by: Michael Reeves M.D. on 08/29/2023 at 17:05
== END ==
LOC: US 15:56
PROVIDERS: Family Provider Student in an Organized Health Care Education/Training Program; PCP Family Medicine; Referring Provider Obstetrics & Gynecology; Visit Provider Obstetrics & Gynecology
DX: N92.6 Irregular menstruation, unspecified (principal); Z90.710 Acquired absence of both cervix and uterus; Z90.722 Acquired absence of ovaries, bilateral
CPT/HCPCS: 76830; 76856

== ENCOUNTER → 2024-04-11 17:07 | Outpatient (CLI) | payer OTHER, SELFPAY | PROVIDERS: Family Provider Student in an Organized Health Care Education/Training Program; PCP Family Medicine; Referring Provider Internal Medicine; Visit Provider Internal Medicine | DX: Z23 Encounter for immunization (principal) | CPT/HCPCS: 90471; 90656 ==

== ENCOUNTER → 2024-09-10 07:51 | Outpatient (CLI) | payer OTHER, SELFPAY ==
--- NOTE | 2024-09-10 07:52 | DI.MG.S_ITS ---
MM screening mammo BI: 09/10/2024. BI-RADS: 0 CLINICAL: 53-year old female for bilateral screening mammogram. Tyrer-Cuzick lifetime risk of 12.1%. No personal or first-degree family history of breast cancer. Current reported family history of breast cancer: maternal grandmother. PRIOR EXAMS 05/18/2023, 12/24/2020, 10/31/2018. MAMMOGRAPHY TECHNIQUE: 2D and 3D (tomosynthesis) digital mammographic views obtained, with additional images as needed for full coverage. Current study was also evaluated with a Computer Aided Detection (CAD) system. DENSITY B. There are scattered areas of fibroglandular density. MAMMOGRAPHY FINDINGS Right: CC only, Central, Anterior depth, measuring 0.5 cm: Asymmetry needing additional imaging evaluation. Left: No suspicious mass, asymmetry, microcalcification, or other abnormality seen. No significant change from comparison. IMPRESSION: Right (Asymmetry): CC only, Central, Anterior depth, measuring 0.5 cm * Incomplete - asymmetry needing additional imaging evaluation. Left * No evidence of malignancy. RECOMMENDATIONS Right: CC only, Central, Anterior depth * Further evaluation with diagnostic mammography and diagnostic ultrasound. Ultrasound to be performed only if needed. OVERALL ASSESSMENT CATEGORY BI-RADS-0: Incomplete - Need Additional Imaging Evaluation. ELECTRONICALLY SIGNED: Elise Grover M.D. on 09/10/2024 at 09:10:54 AM PT Interpreting Station ID: [id number]
== END ==
PROVIDERS: PCP Nurse Practitioner Family; Referring Provider Nurse Practitioner Family; Visit Provider Nurse Practitioner Family
DX: Z12.31 Encounter for screening mammogram for malignant neoplasm of breast (principal); Z80.3 Family history of malignant neoplasm of breast
CPT/HCPCS: 77063; 77067

== ENCOUNTER → 2024-10-09 16:58 | Outpatient (CLI) | payer OTHER, SELFPAY ==
--- NOTE | 2024-10-09 16:59 | DI.MRI.S_ITS ---
PROCEDURE: MR KNEE RT WO CON INDICATIONS: Acute pain of rt knee TECHNIQUE: Noncontrast sagittal PD fast spin echo and T2 fast spin echo with fat saturation, sagittal 3-D FLASH with fat saturation; coronal T1 spin echo and PD fast spin echo with fat saturation, and axial PD fast spin echo with fat saturation through the knee. COMPARISON: [facility], MR, MR KNEE LT WO CON, 08/24/2020, 7:40. FINDINGS: Image quality: Excellent. Some images are limited by patient motion, pulsation artifacts low [id number]. Menisci: Subtle signal changes are noted in the medial meniscus posterior horn extending towards the midbody as well as some blunting or truncation of the apex of the anterior horn of the medial meniscus likely chronic degenerative changes without distinct acute tear exiting to a surface. Lateral meniscus demonstrates mild internal globular signal without focal tear exiting to a surface. Posterior meniscocapsular separation medial more than lateral. Cruciate ligaments: The anterior and posterior cruciate ligaments appear intact. Medial structures: Increased T2 weighted signal/edema surrounding the medial collateral ligament, grade 1 injury. The semimembranosus tendon is intact. Visualized portions of the pes anserinus tendons appear normal. No abnormal bursal fluid. Lateral structures: Mild edema laterally at the distal lateral collateral ligament and the distal attachment of the popliteus tendon and deep to the posterior aspect of the iliotibial band. Otherwise the lateral collateral ligament, long and short heads of the biceps femoris tendon appear intact. The popliteus tendon otherwise appears normal. Anterior structures: On the axial images the patella is subluxed by approximately 1.4 cm laterally in relation to the patellofemoral groove. The quadriceps and patellar tendons appear intact. Mild nonspecific subcutaneous edema is noted anterior to the patella and patellar ligament and proximal tibia. Bones and cartilage: Mild increased T2 weighted signal/bone edema is noted in the medial tibial plateau anterior-medially greater than posteriorly more likely related to degenerative changes, or bone contusion than nondisplaced fracture without linear fracture line or low T1 signal. Moderate diffuse cartilaginous thinning is noted with subtle 4 mm suspected cartilaginous defect in the medial compartment. Diffuse cartilaginous thinning and some irregularity in the patellofemoral compartment predominantly the lateral patellar facet. Mild cartilage thinning in the lateral compartment Joint space: Moderate knee joint effusion. IMPRESSION: Degenerative changes of the medial meniscus as discussed above. Grade 1 injury medial collateral ligament. Posterior meniscocapsular separation. Bone edema in the medial tibial plateau most likely related to degenerative changes or bone contusion. Cartilaginous thinning degenerative changes as discussed above. Moderate knee joint effusion. Other findings as above. Dictated by: Bakari Love M.D. on 10/10/2024 at 12:17 Approved by: Bakari Love M.D. on 10/10/2024 at 12:36
== END ==
PROVIDERS: PCP Nurse Practitioner Family; Referring Provider Nurse Practitioner Family; Visit Provider Nurse Practitioner Family
DX: M25.561 Pain in right knee (principal); M25.461 Effusion, right knee
CPT/HCPCS: 73721

== ENCOUNTER → 2024-12-31 08:49 | Outpatient (CLI) | payer OTHER, SELFPAY ==
--- NOTE | 2024-12-31 08:50 | DI.US.S_ITS ---
MM diagnostic mammo unilat RT, US breast RT limited: 12/31/2024 BI-RADS: 1 CLINICAL: 54-year old female for right diagnostic mammogram and right diagnostic breast ultrasound. Tyrer-Cuzick lifetime risk of 9.7%. No personal or first-degree family history of breast cancer. Current reported family history of breast cancer: maternal grandmother. The patient presents for additional evaluation of an inconclusive screening mammogram. PRIOR EXAMS 09/10/2024, 05/18/2023, 12/24/2020, 10/31/2018. MAMMOGRAPHY TECHNIQUE: 2D and 3D (tomosynthesis) digital mammographic views obtained, with additional images as needed for full coverage. Current study was also evaluated with a Computer Aided Detection (CAD) system. ULTRASOUND TECHNIQUE TARGETED Right Breast Ultrasound: Real-time ultrasound exam was performed focused to area of clinical and/or imaging concern. DENSITY Right: B. There are scattered areas of fibroglandular density. MAMMOGRAPHY FINDINGS Right: CC only, Central, Anterior depth: The asymmetry seen on recent screening mammogram is less conspicuous with additional imaging with the nipple in profile and is consistent with superimposition of normal breast tissue. ULTRASOUND FINDINGS Right: Central, Retroareolar. Previous report: CC only, Central: There is no sonographic correlate for the mammographic finding. No suspicious sonographic finding present. IMPRESSION: Right * No evidence of malignancy. RECOMMENDATIONS Bilateral * Annual screening mammography. COMMENTS: Findings and recommendations were conveyed to the patient during today's evaluation. OVERALL ASSESSMENT CATEGORY BI-RADS-1: Negative. The [employer] recommends annual screening mammography beginning at age 40 for women with average risk of breast cancer. ELECTRONICALLY SIGNED: Elise Grover M.D. on 12/31/2024 at 01:20:20 PM PT Interpreting Station ID: [id number]
== END ==
PROVIDERS: PCP Nurse Practitioner Family; Referring Provider Family Medicine; Visit Provider Family Medicine
DX: R92.8 Other abnormal and inconclusive findings on diagnostic imaging of breast (principal); Z80.3 Family history of malignant neoplasm of breast; R92.321 Mammographic fibroglandular density, right breast
CPT/HCPCS: 76642; 77065; G0279